=== PATIENT | male | born 1935 | race Caucasian/White ===

== ENCOUNTER 2017-05-20 13:58 | Emergency (ER) | payer OTHER ==
[~2017-05-20] VITALS: Ht 170.2 cm; Wt 75.0 kg
[~2017-05-20 13:58] MED LIST: ACET-1256 PO; ASPI-461 PO; CHOL1000 PO; CLOP1TAB15 PO; DIPH50TA10 PO; ERYOPO1 OPR; MAGN1TAB19 PO; MULT-618 PO; NITR0.4S UT; OMEG10007 PO; PANT1TAB3 PO; POLY99.02 OPB; PRED10TA PO; PSYL55.43 PO; [UNRECOGNIZED DRUG - CODE]
[2017-05-20 14:12] VITALS: TEMP 36.8; Ht 170.2 cm; Wt 75.0 kg
--- NOTE | 2017-05-20 14:38 | EMERGENCY ROOM VISIT NOTE ---
History Report prepared by Malindaibkathy: Aleida Aguilera Under the Supervision of: Dr. Hannah Russ D.O. First contact with patient: 14:19 Chief Complaint: SHORTNESS OF BREATH Stated Complaint: SOB,DIZZY History of Present Illness The patient is an 81 year old male who presents to the Emergency Room with complaints of persistent shortness of breath for the past few days. He states his shortness of breath is worsened by any exertion. This morning after clearing his throat, he states he had a near syncopal episode. He has a history of hypoglycemia so he ate breakfast and afterwards states his BSG was 98. He complains of tingling to the right side of his face intermittently for the past 1 month. He has experienced no headaches or vision changes. The patient states recently "I find myself holding my breath a lot" and he has to "think about breathing", which is unusual for him. He notes he has a known abdominal hernia but states his doctor has deferred from doing surgery immediately. The hernia usually bothers him the most in the mornings, and is relieved by manual reduction. He denies any recent chest pain, fevers, chills, or cold symptoms. He does have a dry cough, but states this is chronic for him. He denies any change in bowel movements or urinary habits. He admits to a history atherosclerosis and has [address] 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 A total of 10 systems reviewed and were otherwise negative. 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 (2) Dyslipidemia (3) Gastroesophageal reflux disease (4) History of adenomatous polyp of colon (5) History of malignant neoplasm of prostate (6) s/p hernia repair (7) s/p partial colectomy (8) s/p radical prostatectomy (9) Sleep apnea Family History Diabetes mellitus Hypertension Social History Smoking Status: Former Smoker Alcohol Use: occasionally Drug Use: none Marital Status: single Housing Status: lives with family Occupation Status: retired Current/Historical Medications Scheduled Acetaminophen (Tylenol), 500 MG PO DAILY Artificial Tear Solution (Artificial Tears), 1 DROPS OP QID Aspirin (Aspirin), 81 MG PO QPM Cholecalciferol (Vitamin D3), 2 TAB PO DAILY Clopidogrel (Plavix), 75 MG PO QAM Erythromycin (Erythromycin), 0.5 CM OPR QID Fish Oil ([place]-3), 1 CAP PO BID Magnesium Oxide (Mg Supplement (Magnesium Oxide), 1 TAB PO QAM Multiple Vitamins W/ Minerals (Centrum Silver Ultra Mens), 1 TAB PO QAM Pantoprazole (Protonix), 40 MG PO QAM Psyllium (Goodsense Natural Fiber), 1 DOSE PO UD Scheduled PRN Nitroglycerin (Nitrostat), 0.4 MG UT UD PRN for Chest Pain White Petrolatum-Mineral Oil (Tgt Lubricant Eye Nightti), for dry eye Allergies Coded Allergies: Atorvastatin (Verified Allergy, Intermediate, RASH, 05/20/17) PER CAT - PT HAS TOLERATED CRESTOR BEFORE Bacitracin (Verified Allergy, Intermediate, RASH, 05/20/17) Metoprolol (Verified Allergy, Unknown, Rash., 05/20/17) Rosuvastatin (Verified Allergy, Unknown, Rash., 05/20/17) Physical Exam Vital Signs Date Time Temp Pulse Resp B/P (MAP) Pulse Ox O2 Delivery O2 Flow Rate FiO2 05/20/17 21:21 89 18 173/90 96 05/20/17 19:45 79 23 157/84 98 Room Air 05/20/17 18:30 83 18 158/90 97 Room Air 05/20/17 16:57 89 20 97 Room Air 05/20/17 16:55 89 20 97 Room Air 05/20/17 16:28 77 05/20/17 14:51 83 18 173/91 97 Room Air 05/20/17 14:25 97 Room Air 05/20/17 14:12 36.8 92 20 178/102 95 Room Air Physical Exam GENERAL: alert, well appearing, well nourished, no distress, non-toxic EYE EXAM: normal conjunctiva, PERRL and EOM's grossly intact OROPHARYNX: no exudate, no erythema, lips, buccal mucosa, and tongue normal and mucous membranes are moist NECK: supple, no nuchal rigidity, no adenopathy, non-tender LUNGS: Clear to auscultation. Normal chest wall mechanics HEART: no murmurs, S1 normal and S2 normal ABDOMEN: abdomen soft, large right mid abdominal hernia, non-tender, easily reducible, abdomen is otherwise non-tender, normo-active bowel sounds, no rebound or guarding. BACK: Back is symmetrical on inspection and there is no deformity, no midline tenderness, no CVA tenderness. SKIN: no rashes and no bruising UPPER EXTREMITIES: upper extremities are grossly normal. LOWER EXTREMITIES: No pitting edema. NEURO EXAM: Normal sensorium, cranial nerves II-XII grossly intact, normal speech, no gross weakness of arms, no gross weakness of legs. Normal gait, nor facial droop. Medical Decision & Procedures ER Provider Diagnostic Interpretation: Radiology results have been interpreted by the radiologist and reviewed by me. CHEST ONE VIEW PORTABLE HISTORY: Short of breath. Dizziness. COMPARISON: Chest 04/27/2014. FINDINGS: No pleural effusions. No pneumothorax. Stable calcified granuloma within the left lower lobe. Increased markings at the left lung base. The heart is normal in size. No evidence for pulmonary edema. IMPRESSION: Increased markings at the left lung base which favors atelectasis. Otherwise, no acute process within the chest. Electronically signed by: Aaron Reis M.D. 05/20/2017 3:[address] OF THE HEAD WITHOUT CONTRAST CLINICAL HISTORY: Dizziness. Right facial tingling. COMPARISON STUDY: Head CT April 28, 2014. CT DOSE: 537.48 mGy.cm TECHNIQUE: Helical axial images of the head were obtained without IV contrast. Automated exposure control was utilized for the study. A dose lowering technique was utilized adhering to the principles of ALARA. FINDINGS: No acute intracranial hemorrhage, midline shift or mass effect is present. Ventricular system is stable. The basilar cisterns are patent. There are no extra-axial collections. White matter hypodensity suggests small vessel disease. There are no findings to suggest acute dural sinus thrombosis or acute territorial infarct. There are no significant calvarial abnormalities. Visualized portions of the sinuses and mastoid air cells are clear. IMPRESSION: No acute intracranial findings. Electronically signed by: Rafael Nixon M.D. 05/20/2017 3:10 PM CTA ANGIOGRAPHY OF THE HEAD CLINICAL HISTORY: Right facial tingling. COMPARISON STUDY: MRI the brain June 15, [address] performed earlier today. TECHNIQUE: Helical axial images of the head were obtained following uneventful intravenous administration of 116 cc of Optiray 320. A dose lowering technique was utilized adhering to the principles of ALARA. FINDINGS: The bilateral M1, M2, A1 and A2 segments are patent. There is no intracranial aneurysm. No abrupt vessel cut off is identified. There is no significant stenosis. There is mild atherosclerotic plaque within the bilateral cavernous carotids. The posterior circulation is intact. No acute intracranial hemorrhage, midline shift or mass effect is present. Ventricular system is unremarkable for age. Basilar cisterns are patent. There are no extra-axial collections. IMPRESSION: Unremarkable CTA of the intracranial circulation for age. Electronically signed by: Rafael Nixon M.D. 05/20/2017 8:[address] ANGIOGRAPHY OF THE NECK WITH CONTRAST CLINICAL HISTORY: Right facial tingling. COMPARISON STUDY: No previous studies for comparison. Technique: CT angiography of the carotid and vertebral arteries was obtained using Optiray 320 IV and 3D reconstruction on an independent workstation. NASCET criteria was utilized. A dose lowering technique was utilized adhering to the principles of ALARA. CT DOSE: 475.84 mGy.cm Findings: The bilateral common carotid, internal carotid and vertebral arteries are patent. There is no stenosis or dissection within these vessels. No cervical lymphadenopathy is present. No suspicious osseous lesions are noted. Epiglottis is normal. IMPRESSION: No abnormality in carotid and vertebral vessels on contrast enhanced CT angiogram. Electronically signed by: Rafael Nixon M.D. 05/20/2017 8:37 PM Laboratory Results 05/20/17 14:50 Red Blood Count 4.62, Mean Corpuscular Volume 89.4, Mean Corpuscular Hemoglobin 31.2, Mean Corpuscular Hemoglobin Concent 34.9, Mean Platelet Volume 9.5, Neutrophils (%) (Auto) 52.7, Lymphocytes (%) (Auto) 35.5, Monocytes (%) (Auto) 8.8, Eosinophils (%) (Auto) 2.5, Basophils (%) (Auto) 0.4, Neutrophils # (Auto) 3.81, Lymphocytes # (Auto) 2.57, Monocytes # (Auto) 0.64, Eosinophils # (Auto) 0.18, Basophils # (Auto) 0.03 05/20/17 14:50 Test 05/20/17 14:49 05/20/17 14:50 05/20/17 18:27 Influenza Type A Antigen Neg for Influ A (NEG) Influenza Type B Antigen Neg for Influ B (NEG) White Blood Count 7.24 K/uL (4.8-10.8) Red Blood Count 4.62 M/uL (4.7-6.1) Hemoglobin 14.4 g/dL (14.0-18.0) Hematocrit 41.3 % (42-52) Mean Corpuscular Volume 89.4 fL (80-100) Mean Corpuscular Hemoglobin 31.2 pg (25-34) Mean Corpuscular Hemoglobin Concent 34.9 g/dl (32-36) Platelet Count 211 K/uL (130-400) Mean Platelet Volume 9.5 fL (7.4-10.4) Neutrophils (%) (Auto) 52.7 % Lymphocytes (%) (Auto) 35.5 % Monocytes (%) (Auto) 8.8 % Eosinophils (%) (Auto) 2.5 % Basophils (%) (Auto) 0.4 % Neutrophils # (Auto) 3.81 K/uL (1.4-6.5) Lymphocytes # (Auto) 2.57 K/uL (1.2-3.4) Monocytes # (Auto) 0.64 K/uL (0.11-0.59) Eosinophils # (Auto) 0.18 K/uL (0-0.5) Basophils # (Auto) 0.03 K/uL (0-0.2) RDW Standard Deviation 42.1 fL (36.4-46.3) RDW Coefficient of Variation 13.0 % (11.5-14.5) Immature Granulocyte % (Auto) 0.1 % Immature Granulocyte # (Auto) 0.01 K/uL (0.00-0.02) Prothrombin Time 9.7 SECONDS (9.0-12.0) Prothromb Time International Ratio 0.9 (0.9-1.1) D-Dimer 420 ug/L FEU (0-500) Anion Gap 5.0 mmol/L (3-11) Est Creatinine Clear Calc Drug Dose 53.0 ml/min Estimated GFR () 78.2 Estimated GFR (Non- 67.5 BUN/Creatinine Ratio 12.4 (10-20) Calcium Level 8.6 mg/dl (8.5-10.1) Magnesium Level 2.3 mg/dl (1.8-2.4) Total Bilirubin 0.3 mg/dl (0.2-1) Aspartate Amino Transf (AST/SGOT) 21 U/L (15-37) Alanine Aminotransferase (ALT/SGPT) 26 U/L (12-78) Alkaline Phosphatase 82 U/L (45-117) Troponin I < 0.015 ng/ml (0-0.045) Pro-B-Type Natriuretic Peptide 167 pg/ml (0-1800) Total Protein 7.8 gm/dl (6.4-8.2) Albumin 3.5 gm/dl (3.4-5.0) Globulin 4.3 gm/dl (2.5-4.0) Albumin/Globulin Ratio 0.8 (0.9-2) Thyroid Stimulating Hormone (TSH) 1.240 uIu/ml (0.300-4.500) Bedside Glucose 100 mg/dl (70-99) Laboratory results per my review. Medications Administered Medications (Trade) Dose Ordered Sig/Tutu Route Start Time Stop Time Status Last Admin Dose Admin Albuterol (Ventolin Hfa Inhaler) 2 puffs NOW ONCE INH 05/20/17 21:00 05/20/17 21:01 DC 05/20/17 21:00 2 PUFFS ECG Per My Interpretation Indication: SOB/dyspnea Rate (beats per minute): 89 Rhythm: sinus rhythm Findings: no acute ischemic change, no ectopy, other (normal intervals) ED Course 142: The patient was evaluated in room B12. A complete history and physical exam was performed. 1628: I reevaluated the patient. He states he is still having tingling in his face. He denies any current dizziness or lightheadedness. He states he still feels like has to think about breathing. 2040: I reevaluated the patient. He states he still doesn't feel any better. 2100: Albuterol 2 puffs INH. 2114: I reevaluated the patient. I discussed his results and discharge instructions and he verbalized complete understanding and agreement. Medical Decision Prior records/ancillary studies reviewed. Triage Nursing notes reviewed. Additional history obtained from the family. The patient's history was concerning for respiratory difficulties. Differential diagnosis: Etiologies such as infections, reactive airway disease, pneumonia, pneumothorax , COPD, CHF, cardiac ischemia, pulmonary embolism, musculoskeletal, gastrointestinal, as well as others were entertained. Pt with multiple complaints here, most of which seem chronic. I do feel there is underlying component of anxiety given patient's age and the fact that he lives alone. Labs and imaging the patient performed here were reassuring. Patient did complain of intermittent symptoms, however had no apparent distress. Vital signs otherwise stable. Discussed with patient close follow- up with family doctor, symptoms to watch and return for, he verbalized understanding was agreeable with plan. Patient well-appearing at time of discharge, tolerating by mouth, and related with a steady gait and no apparent distress. I do not suspect occult infectious etiology, occult vascular etiology. Doubt cardiac etiology. Troponin negative after many weeks of symptoms. No evidence of congestive heart failure. Medication Reconcilliation Current Medication List: was personally reviewed by me Blood Pressure Screening Patient's blood pressure: Elevated blood pressure Blood pressure disposition: Referred to PCP Impression Primary Impression: Facial paresthesia Additional Impressions: Dyspnea Anxiety Scribe Attestation The scribe's documentation has been prepared under my direction and personally reviewed by me in its entirety. I confirm that the note above accurately reflects all work, treatment, procedures, and medical decision making performed by me. Departure Information Dispostion Home / Self-Care Referrals Meredith Flaherty M.D. (MEDICAL) (PCP) Patient Instructions My [facility] Additional Instructions Please follow up with your family doctor. Please discuss with them your recent symptoms and possible need for additional evaluation. Please continue regular medications as prescribed. If you develop any worsening trouble breathing, have an increased cough, noticed blood in your sputum, develop chest pain or pressure, dizziness or passing out, headaches, fevers, vomiting, or you've any other new concerns, please return the emergency room. You may use the inhaler up to every 4 hours as needed for shortness of breath. Problem Qualifiers Additional Impressions: Dyspnea Dyspnea type: unspecified Qualified Codes: R06.00 - Dyspnea, unspecified
[2017-05-20 14:59] LABS: BASO % 0.4 %; BASO ABS # 0.03 K/uL (0-0.2); EOS % 2.5 %; EOS ABS # 0.18 K/uL (0-0.5); HEMATOCRIT 41.3 % (42-52); HEMOGLOBIN 14.4 g/dL (14.0-18.0); IG# 0.01 K/uL (0.00-0.02); LYMPH % 35.5 %; LYMPH ABS # 2.57 K/uL (1.2-3.4); MEAN CELL VOLUME 89.4 fL (80-100); MEAN CORPUSCULAR HEMOGLOBIN 31.2 pg (25-34); MEAN CORPUSCULAR HGB CONC 34.9 g/dl (32-36); MEAN PLATELET VOLUME 9.5 fL (7.4-10.4); MONO % 8.8 %; MONO ABS # 0.64 K/uL (0.11-0.59); NEUT % 52.7 %; NEUT ABS # 3.81 K/uL (1.4-6.5); PLATELET COUNT 211 K/uL (130-400); RED CELL DISTRIBUTION WIDTH SD 42.1 fL (36.4-46.3); WHITE BLOOD COUNT 7.24 K/uL (4.8-10.8)
[2017-05-20 15:06] LABS: INR 0.9 (0.9-1.1)
--- NOTE | 2017-05-20 15:11 | DIAGNOSTIC IMAGING REPORT ---
CT OF THE HEAD WITHOUT CONTRAST CLINICAL HISTORY: Dizziness. Right facial tingling. COMPARISON STUDY: Head CT April 28, 2014. CT DOSE: 537.48 mGy.cm TECHNIQUE: Helical axial images of the head were obtained without IV contrast. Automated exposure control was utilized for the study. A dose lowering technique was utilized adhering to the principles of ALARA. FINDINGS: No acute intracranial hemorrhage, midline shift or mass effect is present. Ventricular system is stable. The basilar cisterns are patent. There are no extra-axial collections. White matter hypodensity suggests small vessel disease. There are no findings to suggest acute dural sinus thrombosis or acute territorial infarct. There are no significant calvarial abnormalities. Visualized portions of the sinuses and mastoid air cells are clear. IMPRESSION: No acute intracranial findings. Electronically signed by: Rafael Nixon M.D. 05/20/2017 3:10 PM Dictated Date/Time: 05/20/2017 3:08 PM
--- NOTE | 2017-05-20 15:13 | DIAGNOSTIC IMAGING REPORT ---
CHEST ONE VIEW PORTABLE HISTORY: Short of breath. Dizziness. COMPARISON: Chest 04/27/2014. FINDINGS: No pleural effusions. No pneumothorax. Stable calcified granuloma within the left lower lobe. Increased markings at the left lung base. The heart is normal in size. No evidence for pulmonary edema. IMPRESSION: Increased markings at the left lung base which favors atelectasis. Otherwise, no acute process within the chest. Electronically signed by: Aaron Reis M.D. 05/20/2017 3:11 PM Dictated Date/Time: 05/20/2017 3:10 PM
[2017-05-20 15:17] LABS: BLOOD UREA NITROGEN 13 mg/dl (7-18); CREATININE 1.04 mg/dl (0.60-1.40); GLUCOSE 90 mg/dl (70-99)
[2017-05-20 15:18] LABS: ALBUMIN 3.5 gm/dl (3.4-5.0); ALT/SGPT 26 U/L (12-78); AST/SGOT 21 U/L (15-37); CALCIUM 8.6 mg/dl (8.5-10.1); CARBON DIOXIDE 29 mmol/L (21-32); POTASSIUM 4.3 mmol/L (3.5-5.1); SODIUM 138 mmol/L (136-145)
[2017-05-20 15:28] LABS: ALKALINE PHOSPHATASE 82 U/L (45-117); TOTAL PROTEIN 7.8 gm/dl (6.4-8.2)
[2017-05-20 16:02] LABS: INFLUENZA B ANTIGEN Neg for Influ B (NEG)
[2017-05-20] MEDS ORDERED: ARTISOL12 OP (16:58)
[2017-05-20] MEDS ORDERED: PSYL1POW PO (16:58)
[2017-05-20] MEDS ORDERED: OPTIRAY 320 IV PRN (17:45)
--- NOTE | 2017-05-20 20:36 | DIAGNOSTIC IMAGING REPORT ---
CTA ANGIOGRAPHY OF THE HEAD CLINICAL HISTORY: Right facial tingling. COMPARISON STUDY: MRI the brain June 15, [address] performed earlier today. TECHNIQUE: Helical axial images of the head were obtained following uneventful intravenous administration of 116 cc of Optiray 320. A dose lowering technique was utilized adhering to the principles of ALARA. FINDINGS: The bilateral M1, M2, A1 and A2 segments are patent. There is no intracranial aneurysm. No abrupt vessel cut off is identified. There is no significant stenosis. There is mild atherosclerotic plaque within the bilateral cavernous carotids. The posterior circulation is intact. No acute intracranial hemorrhage, midline shift or mass effect is present. Ventricular system is unremarkable for age. Basilar cisterns are patent. There are no extra-axial collections. IMPRESSION: Unremarkable CTA of the intracranial circulation for age. Electronically signed by: Rafael Nixon M.D. 05/20/2017 8:35 PM Dictated Date/Time: 05/20/2017 8:32 PM
--- NOTE | 2017-05-20 20:38 | DIAGNOSTIC IMAGING REPORT ---
CT ANGIOGRAPHY OF THE NECK WITH CONTRAST CLINICAL HISTORY: Right facial tingling. COMPARISON STUDY: No previous studies for comparison. Technique: CT angiography of the carotid and vertebral arteries was obtained using QRuso 320 IV and 3D reconstruction on an independent workstation. NASCET criteria was utilized. A dose lowering technique was utilized adhering to the principles of ALARA. CT DOSE: 475.84 mGy.cm Findings: The bilateral common carotid, internal carotid and vertebral arteries are patent. There is no stenosis or dissection within these vessels. No cervical lymphadenopathy is present. No suspicious osseous lesions are noted. Epiglottis is normal. IMPRESSION: No abnormality in carotid and vertebral vessels on contrast enhanced CT angiogram. Electronically signed by: Rafael Nixon M.D. 05/20/2017 8:37 PM Dictated Date/Time: 05/20/2017 8:35 PM
[2017-05-20] MEDS ORDERED: ALBUTEROL HFA 8 GM INHALER INH ONE (21:00)
[2017-05-20 21:21] VITALS: BP 173/90; PULSE 89; O2SAT 96
== END 2017-05-20 21:23 | disposition home or self-care (01) ==
LOC: C.EDB 14:00
DX: R06.00 Dyspnea, unspecified (principal); R20.2 Paresthesia of skin; F41.9 Anxiety disorder, unspecified; E16.2 Hypoglycemia, unspecified; K46.9 Unspecified abdominal hernia without obstruction or gangrene; Z95.5 Presence of coronary angioplasty implant and graft; I25.10 Atherosclerotic heart disease of native coronary artery without angina pectoris; E78.5 Hyperlipidemia, unspecified; K21.9 Gastro-esophageal reflux disease without esophagitis; Z86.010 Personal history of colon polyps; Z85.46 Personal history of malignant neoplasm of prostate; G47.30 Sleep apnea, unspecified; Z90.79 Acquired absence of other genital organ(s); Z90.49 Acquired absence of other specified parts of digestive tract; Z87.01 Personal history of pneumonia (recurrent); Z83.3 Family history of diabetes mellitus; Z82.49 Family history of ischemic heart disease and other diseases of the circulatory system; Z79.82 Long term (current) use of aspirin; Z79.02 Long term (current) use of antithrombotics/antiplatelets; Z79.899 Other long term (current) drug therapy; Z88.8 Allergy status to other drugs, medicaments and biological substances

== ENCOUNTER 2017-06-11 12:33 | Inpatient (IN) | payer OTHER ==
[~2017-06-11] VITALS: Ht 171.4 cm; Wt 78.0 kg
[~2017-06-11 12:33] MED LIST changes: +ARTISOL12 OP; -DIPH50TA10 PO; -POLY99.02 OPB; -PRED10TA PO; +PSYL1POW PO; -PSYL55.43 PO
--- NOTE | 2017-06-11 13:00 | EMERGENCY ROOM VISIT NOTE ---
History First contact with patient: 12:41 Chief Complaint: STROKE SYMPTOMS Stated Complaint: TINGLING ON SIDE OF FACE AND CHIN, SOB Nursing Triage Summary: pt reports intermittent shortness of breath x "a couple weeks." pt also reports right sided facial tingling "for a couple weeks also." pt reports symptoms have gotten worse this am and "they get worse when i move around a lot." pt reports his bsg's have been "in the 70's lately." dr spencer in room with pt at this time. History of Present Illness The patient is a 81 year old male who presents to the Emergency Room with complaints of right sided facial tingling and some shortness of breath. This has been occurring for months but is worsening. The patient was here about a month ago, mid May, and had a workup for the numbness. He had laboratory testing and brain imaging including CT angiography of the brain. No concerning findings by workup. He was given an albuterol inhaler which he has tried, this has not helped. The patient denies cough, cold or congestion. No fever or chills. No extremity weakness. The patient states that he felt similar years ago before he had 2 cardiac stents placed. He is concerned this could be his heart again. He states that when he walks distances or does the stairs, he feels short of breath and the facial numbness starts. It takes about 10 minutes of rest and then he feels better. Source of History: patient Onset: months ago Position: head (right side of face ) Quality: other (tingling) Timing: worsening Associated Symptoms: + SOB, No fevers, No chills, No cough, No weakness Review of Systems ROS: Please see HPI. At least 10 systems in total were reviewed and otherwise negative. Past Medical/Surgical History Medical Problems: (1) Coronary Atherosclerosis Of [place] Coronary Vessel (2) Dyslipidemia (3) Gastroesophageal reflux disease (4) History of adenomatous polyp of colon (5) History of malignant neoplasm of prostate (6) s/p hernia repair (7) s/p partial colectomy (8) s/p radical prostatectomy (9) Sleep apnea Family History Diabetes mellitus Hypertension Social History Smoking Status: Former Smoker Alcohol Use: occasionally Drug Use: none Marital Status: single Housing Status: lives with family Occupation Status: retired Current/Historical Medications Scheduled Acetaminophen (Tylenol), 500 MG PO DAILY Artificial Tear Solution (Artificial Tears), 1 DROPS OP QID Aspirin (Aspirin), 81 MG PO QPM Cholecalciferol (Vitamin D3), 1,000 UNITS PO BID Clopidogrel (Plavix), 75 MG PO QAM Fish Oil ([place]-3), 1 CAP PO BID Magnesium Oxide (Mg Supplement (Magnesium Oxide), 1 TAB PO QAM Multiple Vitamins W/ Minerals (Centrum Silver Ultra Mens), 1 TAB PO QAM Pantoprazole (Protonix), 40 MG PO QAM Psyllium (Goodsense Natural Fiber), 1 DOSE PO UD Scheduled PRN Nitroglycerin (Nitrostat), 0.4 MG UT UD PRN for Chest Pain White Petrolatum-Mineral Oil (Tgt Lubricant Eye Nightti), for dry eye Time Last Known Well 3 months ago Stroke t-PA Criteria Reviewed Does NOT meet criteria for t-PA Reason t-PA Not Given Treatment not indicated Physical Exam Vital Signs Date Time Temp Pulse Resp B/P (MAP) Pulse Ox O2 Delivery O2 Flow Rate FiO2 06/11/17 13:36 80 18 161/75 96 Room Air 06/11/17 13:03 93 20 155/67 98 Room Air 06/11/17 12:48 87 06/11/17 12:46 97 Room Air 06/11/17 12:36 36.8 84 20 191/100 98 Room Air Physical Exam GENERAL: Patient is in no acute distress. HEENT: No acute trauma, normocephalic atraumatic, mucous membranes moist, no nasal congestion, no scleral icterus. NECK: No stridor, no adenopathy, no meningismus, trachea is midline. LUNGS: Occasional crackles bilaterally, no wheezing, breath sounds equal, no respiratory distress. HEART: Without murmurs gallops or rubs, regular rate and rhythm. ABDOMEN: Soft, nontender, bowel sounds positive, no hernias, no peritonitis. EXTREMITIES: No cyanosis or edema, full range of motion of all the joints without pain or difficulty, no signs for acute trauma. NEUROLOGIC: Oriented x 3, no acute motor or sensory deficits, no focal weakness. No cerebellar deficits or pronator drift. No speech slur or facial droop. SKIN: No rash, no jaundice, no diaphoresis. Medical Decision & Procedures ER Provider Diagnostic Interpretation: Radiology results as stated below per my review and radiologist interpretation: CHEST ONE VIEW PORTABLE CLINICAL HISTORY: Atypical chest pain, shortness of breath. Dizziness. COMPARISON STUDY: 05/20/2017 FINDINGS: The heart is normal in size. There is no failure. There is no lobar consolidation. There is blunting of the left lateral costophrenic angle consistent with a small pleural effusion. Minimal increased markings within the left midlung zone peripherally remain stable, and unchanged from August 2013.[ There is a stable left lower lobe calcified granuloma. IMPRESSION: 1. Small left pleural effusion 2. No evidence of failure 3. No acute parenchymal consolidation Electronically signed by: Elijah Mccauley M.D. 06/11/2017 1:28 PM Dictated Date/Time: 06/11/2017 1:26 PM Laboratory Results 06/11/17 12:50 06/11/17 12:50 Test 06/11/17 12:50 Red Blood Count 4.52 M/uL (4.7-6.1) Mean Corpuscular Volume 88.1 fL (80-100) Mean Corpuscular Hemoglobin 30.3 pg (25-34) Mean Corpuscular Hemoglobin Concent 34.4 g/dl (32-36) RDW Standard Deviation 42.2 fL (36.4-46.3) RDW Coefficient of Variation 13.1 % (11.5-14.5) Mean Platelet Volume 9.4 fL (7.4-10.4) Prothrombin Time 9.9 SECONDS (9.0-12.0) Prothromb Time International Ratio 0.9 (0.9-1.1) Activated Partial Thromboplast Time 26.1 SECONDS (21.0-31.0) Partial Thromboplastin Ratio 1.0 Anion Gap 7.0 mmol/L (3-11) Est Creatinine Clear Calc Drug Dose 69.4 ml/min Estimated GFR () 86.2 Estimated GFR (Non- 74.4 BUN/Creatinine Ratio 18.0 (10-20) Calcium Level 8.5 mg/dl (8.5-10.1) Magnesium Level 2.4 mg/dl (1.8-2.4) Total Bilirubin 0.2 mg/dl (0.2-1) Aspartate Amino Transf (AST/SGOT) 24 U/L (15-37) Alanine Aminotransferase (ALT/SGPT) 30 U/L (12-78) Alkaline Phosphatase 80 U/L (45-117) Total Protein 7.7 gm/dl (6.4-8.2) Albumin 3.7 gm/dl (3.4-5.0) Globulin 4.0 gm/dl (2.5-4.0) Albumin/Globulin Ratio 0.9 (0.9-2) Thyroid Stimulating Hormone (TSH) 1.190 uIu/ml (0.300-4.500) Laboratory results reviewed by me. ECG Per My Interpretation Indication: SOB/dyspnea Rate (beats per minute): 83 Rhythm: sinus rhythm, other (PACs present. No ST elevation, no PVCs, LVH is noted) ED Course 1400: Discussed the patient's case with Dr. Matson. The patient will be evaluated for further management. 1422: Upon reexamination the patient is resting. I discussed results and treatment plan with the patient. He verbalizes agreement and understanding. Medical Decision Differential diagnosis includes cardiac ischemia, angina, stroke, TIA, electrolyte imbalance, anemia, CHF or cardiomegaly. There is no leukocytosis or worrisome anemia. No significant electrolyte abnormality, kidney failure or hepatitis. The patient appears to be in a euthyroid state. There is no coagulopathy. EKG shows a sinus rhythm with PACs and LVH, no acute ischemia. Cardiac enzyme testing 1 is not consistent with acute cardiac injury. Chest x-ray does not show mediastinal widening, pneumonia or CHF. On my exam, there were no focal neurologic deficits. The patient had a workup for stroke last month. He had no findings on workup. His symptoms have been persistent now for months and seem to be present with exertion. The symptoms resolve with rest. He had similar issues in the past that led to cardiac stenting. I do think further cardiac workup is warranted. I did speak with the patient and case management. The on-call hospitalist was consulted. Medication Reconcilliation Current Medication List: was personally reviewed by me Blood Pressure Screening Patient's blood pressure: Elevated blood pressure will be monitored by hospitalist Consults Time Called: 1330 Consulting Physician: Dr. Matson Returned Call: 1400 Discussed the patient's case. The patient will be evaluated for further management. Additional Consults: Additional Comments: Impression Primary Impression: Dyspnea on exertion Additional Impression: Right facial numbness Departure Information Dispostion Being Evaluated By Hospitalist Referrals Meredith Flaherty M.D. (MEDICAL) (PCP) Patient Instructions My [facility] Problem Qualifiers
[2017-06-11 13:04] LABS: HEMATOCRIT 39.8 % (42-52); HEMOGLOBIN 13.7 g/dL (14.0-18.0); MEAN CELL VOLUME 88.1 fL (80-100); MEAN CORPUSCULAR HEMOGLOBIN 30.3 pg (25-34); MEAN CORPUSCULAR HGB CONC 34.4 g/dl (32-36); MEAN PLATELET VOLUME 9.4 fL (7.4-10.4); PLATELET COUNT 220 K/uL (130-400); RED CELL DISTRIBUTION WIDTH CV 13.1 % (11.5-14.5); RED CELL DISTRIBUTION WIDTH SD 42.2 fL (36.4-46.3); WHITE BLOOD COUNT 7.49 K/uL (4.8-10.8)
[2017-06-11 13:16] LABS: INR 0.9 (0.9-1.1); PTT PATIENT 26.1 SECONDS (21.0-31.0)
--- NOTE | 2017-06-11 13:29 | DIAGNOSTIC IMAGING REPORT ---
CHEST ONE VIEW PORTABLE CLINICAL HISTORY: Atypical chest pain, shortness of breath. Dizziness. COMPARISON STUDY: 05/20/2017 FINDINGS: The heart is normal in size. There is no failure. There is no lobar consolidation. There is blunting of the left lateral costophrenic angle consistent with a small pleural effusion. Minimal increased markings within the left midlung zone peripherally remain stable, and unchanged from August 2013.[ There is a stable left lower lobe calcified granuloma. IMPRESSION: 1. Small left pleural effusion 2. No evidence of failure 3. No acute parenchymal consolidation Electronically signed by: Elijah Mccauley M.D. 06/11/2017 1:28 PM Dictated Date/Time: 06/11/2017 1:26 PM
[2017-06-11 13:43] LABS: ALBUMIN 3.7 gm/dl (3.4-5.0); ALT/SGPT 30 U/L (12-78); AST/SGOT 24 U/L (15-37); BLOOD UREA NITROGEN 17 mg/dl (7-18); CALCIUM 8.5 mg/dl (8.5-10.1); CARBON DIOXIDE 26 mmol/L (21-32); CREATININE 0.96 mg/dl (0.60-1.40); GLUCOSE 97 mg/dl (70-99); POTASSIUM 4.3 mmol/L (3.5-5.1); SODIUM 138 mmol/L (136-145)
[2017-06-11 13:54] LABS: ALKALINE PHOSPHATASE 80 U/L (45-117); TOTAL PROTEIN 7.7 gm/dl (6.4-8.2)
--- NOTE | 2017-06-11 14:23 | History and Physical ---
History & Physical Date & Time of Service: Jun 11, 2017 at 14:23 . Chief Complaint: dyspnea on exertion . Primary Care Physician: Meredith Flaherty M.D. (MEDICAL) . History of Present Illness Source: patient, clinic records, hospital records 81-year-old male followed by Dr. Flaherty for Family Medicine and Dr. Coyne for Cardiology. History of ischemic heart disease and other problems noted below. Cardiac catheterization performed on 03/05/12 demonstrated a severe mid left circumflex lesion. PCI with drug-eluting stent was successfully performed. Recurrent chest pain in February 2013. Repeat cardiac catheterization demonstrated severe proximal LAD lesion and a drug-eluting stent was placed. The previously placed left circumflex stent was patent. Patient was seen in the ED on 05/20/17 with right facial paresthesiae. No other focal neurologic symptoms. CT of head showed small vessel ischemic changes. CTA of cervical and intracranial vessels did not show any significant stenoses. Over the past week, patient has noted increasing dyspnea on exertion. Feels short of breath walking from room to room in his home or after climbing a flight of stairs. No associated chest pain or chest pressure. Intermittent palpitations, not necessarily associated with activity. No dependent edema. No fever. Minimal nonproductive cough. . Past Medical/Surgical History Chronic and Resolved Medical Problems: (1) Coronary Atherosclerosis Of [place] Coronary Vessel Status: Chronic (2) Dyslipidemia Status: Chronic (3) Gastroesophageal reflux disease Status: Chronic (4) History of adenomatous polyp of colon Status: Chronic (5) History of malignant neoplasm of prostate Status: Chronic (6) Sleep apnea Permanent Comment: intolerant of CPAP Status: Chronic (7) Statin allergy/intolerance Status: Chronic (8) Tinnitus Status: Chronic Surgical Problems: (1) History of radical prostatectomy Status: Chronic (2) S/P inguinal hernia repair Status: Chronic (3) Status post partial colectomy Permanent Comment: large polyp Status: Chronic . Family History Diabetes mellitus MOTHER BROTHER Hypertension BROTHER Lymphoma BROTHER Multiple myeloma SISTER Stroke FATHER BROTHER Social History Smoking Status: Never Smoker Alcohol Use: none Drug Use: none Marital Status: single Occupational Status: retired Immunizations History of Influenza Vaccine: Yes History of Tetanus Vaccine?: Yes Tetanus Immunization Date: Jul 28, 2012 History of Pneumococcal: Yes Pneumococcal Date: Jan 27, 2013 History of Hepatitis B Vaccine: No Allergies Coded Allergies: Atorvastatin (Verified Allergy, Intermediate, RASH, 06/11/17) PER CAT - PT HAS TOLERATED CRESTOR BEFORE Bacitracin (Verified Allergy, Intermediate, RASH, 06/11/17) Metoprolol (Verified Allergy, Unknown, Rash., 06/11/17) Rosuvastatin (Verified Allergy, Unknown, Rash., 06/11/17) Home Medications Scheduled Acetaminophen (Tylenol), 500 MG PO DAILY Artificial Tear Solution (Artificial Tears), 1 DROPS OP QID Aspirin (Aspirin), 81 MG PO QPM Cholecalciferol (Vitamin D3), 1,000 UNITS PO BID Clopidogrel (Plavix), 75 MG PO QAM Fish Oil ([place]-3), 1 CAP PO BID Magnesium Oxide (Mg Supplement (Magnesium Oxide), 1 TAB PO QAM Multiple Vitamins W/ Minerals (Centrum Silver Ultra Mens), 1 TAB PO QAM Pantoprazole (Protonix), 40 MG PO QAM Psyllium (Goodsense Natural Fiber), 1 DOSE PO UD Scheduled PRN Nitroglycerin (Nitrostat), 0.4 MG UT UD PRN for Chest Pain White Petrolatum-Mineral Oil (Tgt Lubricant Eye Nightti), for dry eye Review of Systems CONSTITUTIONAL no fever no weight loss EYES + dry eyes no acute visual changes EARS, NOSE, MOUTH, AND THROAT + tinnitus (chronic) no hearing loss no sinus symptoms no pharyngitis CARDIOVASCULAR as noted above in HPI RESPIRATORY as noted above in HPI GASTROINTESTINAL + incisional hernia no nausea or vomiting no diarrhea no constipation no melena or hematochezia GENITOURINARY + nocturia once a night no dysuria no hematuria MUSCULOSKELETAL + neck pain no myalgias INTEGUMENTARY + rash on right thigh, resolving no new / changing lesions NEUROLOGIC as noted above in HPI PSYCHIATRIC + anxiety + depression, cries easily ENDOCRINE + hypoglycemia no polyuria or polydipsia HEMATOLOGIC / LYMPHATIC no unusual bruising or bleeding no adenopathy . Physical Exam Vital Signs Date Time Temp Pulse Resp B/P (MAP) Pulse Ox O2 Delivery O2 Flow Rate FiO2 06/11/17 13:36 80 18 161/75 96 Room Air 06/11/17 13:03 93 20 155/67 98 Room Air 06/11/17 12:48 87 06/11/17 12:46 97 Room Air 06/11/17 12:36 36.8 84 20 191/100 98 Room Air CONSTITUTIONAL vital signs as noted above adult male, well-developed, well-nourished, no acute distress EYES conjunctivae clear; lids normal pupils equal and reactive to light EARS, NOSE, MOUTH AND THROAT external inspection of ears and nose unremarkable hearing grossly intact to spoken voice oropharynx clear NECK no masses; trachea midline thyroid normal RESPIRATORY normal respiratory effort; no respiratory distress clear to percussion bibasilar fine rales, R > L CARDIOVASCULAR regular rate and rhythm no murmur, gallop, rub appreciated carotid arteries 2/2 abdominal aorta not palpable DP pulses diminished; PT pulses intact capillary refill toes < 2 seconds no pretibial edema GASTROINTESTINAL normal bowel sounds, soft, nontender; no palpable masses no hepatomegaly; no splenomegaly large incisional hernia, easily reduced LYMPHATIC no cervical adenopathy MUSCULOSKELETAL no cyanosis; no digital clubbing no calf tenderness motor strength extremities grossly intact SKIN resolving rash right medial thigh warm and dry NEUROLOGIC PERRL, EOMI, no facial palsy, no dysarthria, tongue midline patellar DTR's 1/2 PSYCHIATRIC oriented to person, place, time mood and affect appropriate . Diagnostics Laboratory Results Results Past 24 Hours Test 06/11/17 12:50 Range/Units White Blood Count 7.49 4.8-10.8 K/uL Red Blood Count 4.52 4.7-6.1 M/uL Hemoglobin 13.7 14.0-18.0 g/dL Hematocrit 39.8 42-52 % Mean Corpuscular Volume 88.1 80-100 fL Mean Corpuscular Hemoglobin 30.3 25-34 pg Mean Corpuscular Hemoglobin Concent 34.4 32-36 g/dl RDW Standard Deviation 42.2 36.4-46.3 fL RDW Coefficient of Variation 13.1 11.5-14.5 % Platelet Count 220 130-400 K/uL Mean Platelet Volume 9.4 7.4-10.4 fL Prothrombin Time 9.9 9.0-12.0 SECONDS Prothromb Time International Ratio 0.9 0.9-1.1 Activated Partial Thromboplast Time 26.1 21.0-31.0 SECONDS Partial Thromboplastin Ratio 1.0 Sodium Level 138 136-145 mmol/L Potassium Level 4.3 3.5-5.1 mmol/L Chloride Level 105 98-107 mmol/L Carbon Dioxide Level 26 21-32 mmol/L Anion Gap 7.0 3-11 mmol/L Blood Urea Nitrogen 17 7-18 mg/dl Creatinine 0.96 0.60-1.40 mg/dl Est Creatinine Clear Calc Drug Dose 69.4 ml/min Estimated GFR () 86.2 Estimated GFR (Non- 74.4 BUN/Creatinine Ratio 18.0 10-20 Random Glucose 97 70-99 mg/dl Calcium Level 8.5 8.5-10.1 mg/dl Magnesium Level 2.4 1.8-2.4 mg/dl Total Bilirubin 0.2 0.2-1 mg/dl Aspartate Amino Transf (AST/SGOT) 24 15-37 U/L Alanine Aminotransferase (ALT/SGPT) 30 12-78 U/L Alkaline Phosphatase 80 45-117 U/L Troponin I < 0.015 0-0.045 ng/ml Total Protein 7.7 6.4-8.2 gm/dl Albumin 3.7 3.4-5.0 gm/dl Globulin 4.0 2.5-4.0 gm/dl Albumin/Globulin Ratio 0.9 0.9-2 Thyroid Stimulating Hormone (TSH) 1.190 0.300-4.500 uIu/ml Diagnostic Radiology CHEST ONE VIEW PORTABLE The heart is normal in size. There is no failure. There is no lobar consolidation. There is blunting of the left lateral costophrenic angle consistent with a small pleural effusion. Minimal increased markings within the left midlung zone peripherally remain stable, and unchanged from August 2013.[ There is a stable left lower lobe calcified granuloma. IMPRESSION: 1. Small left pleural effusion 2. No evidence of failure 3. No acute parenchymal consolidation Electronically signed by: Elijah Mccauley M.D. 06/11/2017 1:28 PM Dictated Date/Time: 06/11/2017 1:26 PM . EKG EKG performed at 1253 reviewed and demonstrated normal sinus rhythm/minute, inverted T waves aVL, J-point elevation V2, no significant change compared to previous tracing on 05/20/17. . Impression Assessment and Plan DYSPNEA ON EXERTION / CAD Known ischemic heart disease. Worsening dyspnea on exertion over past week. No associated chest pain or chest pressure. Had similar symptoms in the past when he presented with acute coronary syndrome. Troponin in ED normal. No acute changes on EKG. Check serial troponins. Continue aspirin and clopidogrel. Patient is intolerant to beta blockers and statins. Consult Cardiology. Consider pulmonary evaluation if ongoing symptoms after cardiac assessment. Check 2 step pulse oximetry prior to discharge. PLEURAL EFFUSION Chest x-ray shows small left pleural effusion. Patient has history of prostate cancer as well as colonic polyps. Suggest follow-up chest x-ray in clinic in 4-6 weeks to make certain that the effusion does not worsen. RIGHT FACIAL PARESTHESIAE Seen in the ED about 2 weeks ago with paresthesiae right face. No acute findings on CT of brain. CTA of cervical and intracranial vessels unremarkable. Patient has persistent paresthesiae, no other neurologic symptoms. Consider mononeuropathy. TSH normal. Check Lyme screen with next labs. DEPRESSION Patient notes that he cries easily and is concerned that he is depressed. Further discussion with PCP recommended. VTE PROPHYLAXIS Moderate risk for VTE. SQ enoxaparin. Ambulate. RESUSCITATION STATUS Discussed with patient. He has a living will. He would like resuscitation attempted in the event of a cardiopulmonary arrest if there is a reasonable chance of a meaningful recovery, but does not want prolonged extraordinary measures if prognosis is poor. Therefore, code status = "Level 1" (full resuscitation). DISPOSITION Observation status on Telemetry Unit. Expected discharge to home. Family Medicine follow-up with Dr. Flaherty. . Resuscitation Status VTE Prophylaxis Will order VTE Prophylaxis: Yes
[2017-06-11] MEDS ORDERED: ACETAMINOPHEN 325 MG TAB PO PRN (14:30)
[2017-06-11] MEDS ORDERED: IV FLUIDS COMPLETED PRN (15:00)
[2017-06-11 16:54] VITALS: BP 167/76; PULSE 77; TEMP 36.8; O2SAT 98; Ht 171.4 cm; Wt 78.0 kg
[2017-06-11] MEDS: ARTIFICIAL TEARS OP SOLN OP SCH ×2 (17:00→21:09)
[2017-06-11 20:07] VITALS: BP 131/77; PULSE 75; TEMP 36.9; O2SAT 96
[2017-06-11] MEDS: ARTIFICIAL TEARS OP OINT 3.5 GM TUBE OP SCH (20:50)
[2017-06-11] MEDS: ASPIRIN 81 MG ECTAB PO SCH (20:50)
[2017-06-11] MEDS: ENOXAPARIN 40 MG/0.4 ML SYR SC SCH (20:50)
[2017-06-11 23:49] VITALS: BP 154/71; PULSE 87; TEMP 36.5; O2SAT 96
[2017-06-12 04:13] VITALS: BP 153/77; PULSE 68; TEMP 36.5; O2SAT 97
[2017-06-12 07:15] VITALS: BP 145/74; PULSE 70; TEMP 36.6; O2SAT 97
[2017-06-12] MEDS: MAGNESIUM OXIDE 400 MG TAB PO SCH (07:35)
[2017-06-12] MEDS: PSYLLIUM 58.6% PWD PACK S\\F PO SCH (07:35)
[2017-06-12] MEDS: PANTOprazole SOD 40 MG TAB PO SCH (07:35)
[2017-06-12] MEDS: CLOPIDOGREL BISULFATE 75 MG TAB PO SCH (07:35)
[2017-06-12] MEDS: ARTIFICIAL TEARS OP SOLN OP SCH ×4 (07:39→21:12)
--- NOTE | 2017-06-12 09:35 | CARDIOLOGY CONSULTATION ---
DATE OF CONSULTATION: 06/12/2017 REFERRING PHYSICIAN: Juan Carlos Matson MD. REASON FOR CONSULTATION: Dyspnea, coronary artery disease. CHIEF COMPLAINT ON ADMISSION: Dyspnea on exertion, fatigue. HISTORY OF PRESENT ILLNESS: Mr. Jones is an 81-year-old male followed by Dr. Coyne of our practice. He carries a history of coronary artery disease with prior drug-eluting stent implantation to left circumflex in 2011 as well as drug-eluting stent implantation to the LAD in 2012. The patient presented to the Emergency Department approximately 1 week ago with right-sided facial paresthesias. Initial neurologic workup was unremarkable. He was discharged to home. Reports dyspnea on exertion over the past 2-3 months. Notes dyspnea with walking on level ground. At times he notes right-sided facial paresthesias, which are not associated with exertion. He voices concern regarding his underlying coronary disease. Denies any chest heaviness, tightness, pressure, or pain. Note intermittent palpitations consistent with history of premature ventricular complexes. Denies orthopnea, PND, or lower extremity edema. Chest x-ray performed on admission demonstrates small left-sided pleural effusion without evidence of congestive heart failure. Currently, patient resting comfortably. Voices concerned symptoms may be related to underlying coronary disease or hypoglycemia which is a reported chronic issue. A.m. glucose within normal limits. Offers no other complaints at this time. REVIEW OF SYSTEMS: The pertinent positives are noted above, a comprehensive 10-system review is otherwise negative. PAST MEDICAL HISTORY: 1. Coronary artery disease with prior drug-eluting stent implantation, left circumflex and left anterior descending artery. 2. Dyslipidemia. 3. GERD. 4. Colon polyps. 5. Prostate cancer. 6. Obstructive sleep apnea with intolerance to CPAP. 7. Statin intolerance. 8. Tinnitus. PAST SURGICAL HISTORY: 1. Cardiac catheterization x3. 2. Radical prostatectomy. 3. Inguinal hernia repair. 4. Partial colectomy secondary to large polyp. FAMILY HISTORY: Positive for diabetes, lymphoma, multiple myeloma, and cerebral vascular accident. There is no family history of premature coronary artery disease or sudden cardiac . SOCIAL HISTORY: He is a lifelong nonsmoker. He is retired and single. ALLERGIES: ATORVASTATIN, BACITRACIN, METOPROLOL, ROSUVASTATIN. HOME MEDICATIONS: 1. Tylenol 500 mg daily. 2. Aspirin 81 mg daily. 3. Plavix 75 mg daily. 4. Fish oil twice daily. 5. Magnesium oxide daily. 6. Multivitamin daily. 7. Protonix 40 mg daily. 8. Nitroglycerin as needed. 9. Mineral oil for dry eyes. ECHOCARDIOGRAM ON ADMISSION: Normal sinus rhythm, premature supraventricular complexes. TELEMETRY: Sinus rhythm, occasional premature supraventricular complexes, rare premature ventricular complexes. LABORATORY DATA: LDL is 124, HDL is 38. White blood cell count 7.49, hemoglobin 13.7, platelet count is 220. INR is 0.9. Lyme's titer is negative. PHYSICAL EXAMINATION: VITAL SIGNS: Temperature is 36.6 degrees, pulse 70 beats per minute and regular, respiratory rate 20 breaths per minute, blood pressure 145/74 SaO2 is 97% on room air. GENERAL: NAD, awake, alert and oriented x3. HEENT: Mucous membranes are moist. There is no scleral icterus. The conjunctivae are pink. NECK: Supple without JVD or HJR. There is no carotid bruit. HEART: Regular with a normal S1 and S2. There is no murmur, rub or gallop. LUNGS: Clear with diminished breath sounds at the left base. No rales, rhonchi or wheeze. ABDOMEN: Soft, nontender. No rebound or guarding. Normal bowel sounds. EXTREMITIES: Warm and dry without clubbing, cyanosis or edema. NEUROLOGIC: Demonstrates no focal motor deficit. FINAL IMPRESSION: 1. An 81-year-old male presents with dyspnea on exertion as well as recurrent right-sided facial paresthesias. Symptoms somewhat atypical for angina; however, the patient has had evidence of underlying obstructive coronary artery disease with atypical symptoms in the past. Most recently nuclear stress testing and dobutamine stress echocardiography negative for inducible ischemia with negative cardiac catheterization in 2013. At that time, testing was performed for similar symptoms. 2. Small left-sided pleural effusion without evidence of congestive heart failure -- concerns regarding history of prostate cancer in the past. 3. Hypertension. 4. Dyslipidemia, statin intolerance. 5. Obstructive sleep apnea with CPAP intolerance. PLAN AND RECOMMENDATIONS: I had a long discussion with the patient regarding his recurrent symptoms. He has consumed a full meal this a.m. We discussed further ischemic evaluation with pharmacologic stress testing versus direct invasive testing with cardiac catheterization. We will proceed with dobutamine stress echocardiography this afternoon with plans for cardiac catheterization if stress testing is abnormal. In regard to his left-sided pleural effusion, recommend the chest ultrasound for quantitation. Consider pulmonary evaluation. We will continue to monitor blood pressure closely. Other cardiovascular medications will be continued as listed above. Further recommendations pending review of testing. Thank you for allowing me to participate in the care of your patient.
--- NOTE | 2017-06-12 11:41 | DIAGNOSTIC IMAGING REPORT ---
ULTRASOUND OF THE PLEURAL SPACES CLINICAL HISTORY: Pleural effusion. COMPARISON STUDY: Chest x-ray dated 06/11/2017. Chest CT dated 08/04/2013. FINDINGS: Real-time grayscale sonography of the pleural spaces is performed. No right-sided pleural effusion is identified. There is a trace left pleural effusion with an estimated volume of 12 cc. IMPRESSION: Trace left pleural effusion. Electronically signed by: Jonnie Cohn M.D. 06/12/2017 11:40 AM Dictated Date/Time: 06/12/2017 11:39 AM
[2017-06-12] MEDS ORDERED: DOBUTamine HCL 12.5 MG/ML 20 ML VIAL ONE (11:48)
[2017-06-12] MEDS ORDERED: METOPROLOL TARTRATE 1 MG/ML VIAL ONE (11:48)
[2017-06-12] MEDS ORDERED: ATROPINE SULFATE 0.1 MG/ML 5ML SYR ONE (11:50)
[2017-06-12] MEDS: NITROGLYCERIN 0.4 MG SL PER TAB CHARGE SL PRN ×3 (12:20→12:36)
--- NOTE | 2017-06-12 12:37 | Cardiology Progress Note ---
Cardiology Progress Note Date of Service Jun 12, 2017. Cardiology Progress Note Patient reassessed prior to, during, and post dobutamine stress echocardiogram. Resting echocardiogram revealed normal resting left ventricular wall motion. EKG response to pharmacologic stress was normal with the patient having achieved target heart rate. At peak target heart rate, and early in the post pharmacologic stress recovery interval, the patient complained of shortness of breath that was more intense than the exertional shortness of breath that he has been experiencing as an outpatient. There were no associated EKG abnormalities, and the left ventricular wall motion was noted to be normal at that time, however further echocardiographic imaging revealed a focal wall motion abnormality limited to the right ventricular apex and the mid level of the right ventricle. The dobutamine infusion was discontinued, the patient received 5 mg of IV metoprolol, and just of sublingual nitroglycerin 0.4 mg, with resolution of his shortness of breath, and noted resolution of the right ventricular wall motion abnormality on further echocardiographic imaging. The patient had undergone chest ultrasound, with findings of a trace left pleural effusion with estimated volume of 12 mL. At this time, it appears that the pleural effusion is small and not amenable to diagnostic thoracentesis, and therefore continued observation is recommended. The patient does not appear to be decompensated from a volume standpoint. Plan for the patient to remain in the hospital. I am going to advance his diet and make him n.p.o. after midnight for planned invasive coronary angiography on 06/13/17.
[2017-06-12] MEDS ORDERED: PERFLUTREN LIPID MICROSPHERE (DEFINITY) IV ONE (12:56)
[2017-06-12 15:32] VITALS: BP 143/80; PULSE 61; TEMP 36.2; O2SAT 97
[2017-06-12 16:02] VITALS: O2SAT 97
--- NOTE | 2017-06-12 19:00 | Progress Note ---
Medicine Progress Note Date & Time of Visit: Jun 12, 2017 at 18:54. Subjective patient seen resting in bedside chair in good spirits states he feels fine overall no active chest pain, dyspnea s/p stress test this morning: negative no other symptoms Objective Last 8 Hrs Date Time Temp Pulse Resp B/P (MAP) Pulse Ox O2 Delivery O2 Flow Rate FiO2 06/12/17 16:02 97 Room Air 06/12/17 15:32 36.2 61 16 143/80 (101) 97 Room Air 06/12/17 13:00 Room Air Physical Exam: General- oriented x 3, not in distress, speaks in sentences with no effort Head- atraumatic Eyes- PERRL, EOMI, anicteric ENT- oropharynx clear Neck- supple, no JVD, no adenopathy, no thyromegaly; carotids +2/2 Lungs- clear breath sounds bilaterally, no rales/wheezes Heart- regular rhythm; no murmur, normal rate Abdomen- normal bowel sounds, soft, nontender Extremities- no pretibial edema, no calf tenderness Neuro- alert, oriented x 3; no gross focal deficits Skin- warm & dry Laboratory Results: Last 24 Hours Test 06/11/17 20:30 06/12/17 00:15 06/12/17 04:08 06/12/17 05:44 Bedside Glucose 99 mg/dl 155 mg/dl Troponin I < 0.015 ng/ml Random Glucose 88 mg/dl Triglycerides Level 93 mg/dl Cholesterol Level 181 mg/dl HDL Cholesterol 38 mg/dl LDL Cholesterol, Calculated 124 mg/dl VLDL Cholesterol, Calculated 19 mg/dl Cholesterol/HDL Ratio 4.8 Test 06/12/17 09:57 Bedside Glucose 90 mg/dl Assessment & Plan DYSPNEA ON EXERTION / CAD Known ischemic heart disease. troponins negative Dobutamine stress test: negative for cardiac cath tomorrow PLEURAL EFFUSION Chest x-ray shows small left pleural effusion. Patient has history of prostate cancer as well as colonic polyps. Suggest follow-up chest x-ray in clinic in 4-6 weeks to make certain that the effusion does not worsen. RIGHT FACIAL PARESTHESIAE Seen in the ED about 2 weeks ago with paresthesiae right face. No acute findings on CT of brain. CTA of cervical and intracranial vessels unremarkable. Patient has persistent paresthesiae, no other neurologic symptoms. -- TSH normal Lyme negative -- chronic as per patient DEPRESSION Patient notes that he cries easily and is concerned that he is depressed. Further discussion with PCP recommended. VTE PROPHYLAXIS Moderate risk for VTE. SQ enoxaparin. Ambulate. RESUSCITATION STATUS Discussed with patient. He has a living will. He would like resuscitation attempted in the event of a cardiopulmonary arrest if there is a reasonable chance of a meaningful recovery, but does not want prolonged extraordinary measures if prognosis is poor. Therefore, code status = "Level 1" (full resuscitation). DISPOSITION Observation status on Telemetry Unit. Expected discharge to home. Family Medicine follow-up with Dr. Flaherty. . Current Inpatient Medications: Current Inpatient Medications Medications (Trade) Dose Ordered Sig/Tutu Route Start Time Stop Time Status Last Admin Dose Admin Enoxaparin Sodium (Lovenox Inj) 40 mg HS SC 06/11/17 21:00 07/11/17 20:59 Acetaminophen (Tylenol Tab) 650 mg Q4H PRN PO 06/11/17 14:30 07/11/17 14:29 06/12/17 04:10 650 MG Nitroglycerin (Nitrostat Tab) 0.4 mg UD PRN SL 06/11/17 14:30 07/11/17 14:29 06/12/17 12:20 0.4 MG Miscellaneous (Iv Fluids Completed) 1 ea PRN PRN N/A 06/11/17 15:00 06/11/18 14:59 Aspirin (Ecotrin Tab) 81 mg QPM PO 06/11/17 21:00 07/11/17 20:59 06/11/17 20:50 81 MG Clopidogrel Bisulfate (plAVix TAB) 75 mg QAM PO 06/12/17 09:00 07/12/17 08:59 06/12/17 07:35 75 MG Pantoprazole Sodium (Protonix Tab) 40 mg QAM PO 06/12/17 09:00 07/12/17 08:59 06/12/17 07:35 40 MG Artificial Tears (Artificial Tears) 1 drops QID OP 06/11/17 17:00 07/11/17 16:59 06/12/17 13:27 1 DROPS Magnesium Oxide (Mag-Ox Tab) 400 mg QAM PO 06/12/17 09:00 07/12/17 08:59 06/12/17 07:35 400 MG Psyllium Hydrophilic Mucilloid (Metamucil Powder) 1 pkt QAM PO 06/12/17 09:00 07/12/17 08:59 06/12/17 07:35 1 PKT Artificial Tears (Lacri-Lube Oph Oint) 1 appln HS OP 06/11/17 21:00 07/11/17 20:59 06/11/17 20:50 1 APPLN Sodium Chloride 1,000 ml @ 75 mls/hr [id number] IV 06/12/17 23:59 07/12/17 23:58 Aspirin (Aspirin Chew) 324 mg TODAY@0700 PO 06/13/17 07:00 06/13/17 18:00
[2017-06-12 19:26] VITALS: BP 154/85; PULSE 76; TEMP 36.2; O2SAT 96
[2017-06-12 20:08] VITALS: O2SAT 97
[2017-06-12] MEDS: ENOXAPARIN 40 MG/0.4 ML SYR SC SCH (21:00)
[2017-06-12] MEDS: ARTIFICIAL TEARS OP OINT 3.5 GM TUBE OP SCH (21:12)
--- NOTE | 2017-06-12 21:12 | DOBUTAMINE ECHO ---
*NOTICE TO RECEIVING DEMOCRAT AGENCY This information is strictly Confidential and protected under [place] law. [place] law prohibits you from making any further disclosure of this information unless further disclosure is expressly permitted by the written consent of the person to whom it pertains or is authorized by law. A general authorization for the release of medical or other information is not sufficient for this purpose. Hospital accepts no responsibility if the information is made available to any other person, INCLUDING THE PATIENT. Interpretation Summary * Name: ALTHEA TAVARES Study Date: 06/12/2017 10:59 AM BP: 167/83 mmHg * Patient Location: [facility]\S\N281\S\1 HR: 70 * : 1935 (M/d/yyy) Gender: Male Height: 67 in * Age: 81 yrs Ethnicity: [place] Weight: 169 lb * Ordering Physician: Jus Mcclure * Referring Physician: Self, Referred * Performed By: Loreto Jose RDCS * * Reason For Study: Coronary Artery Disease * BSA: 1.9 m2 * -- Conclusions -- * STRESS STUDY: * Abnormal dobutamine stress echocardiogram. * Normal ECG response to pharmacologic stress. * The left ventricular wall motion is normal at rest with normal stress wall motion noted. * Focal hypokinesis of the right ventricular apex was noted at peak pharmacologic stress and early in the posterior pharmacologic stress recovery interval, and was associated with findings of subjective shortness of breath that reproduced the patient's presenting symptoms. * The dobutamine infusion was discontinued, the patient received 5 mg of IV metoprolol and then 0.4 mg of sublingual nitroglycerin with subsequent resolution of his shortness of breath, and improvement in the transient focal wall motion abnormality limited to the RV apex. * RESTING STUDY: * There is mild concentric left ventricular hypertrophy. * The LV ejection Fraction = 55-60%. * There is no significant valvular heart disease on the resting study. * Doppler findings do not suggest pulmonary hypertension. Procedure Details * DOBUTAMINE ECHO, CPT#[id number] * ECHO DOPPLER, CPT #[id number] * ECHO COLOR FLOW, CPT #[id number] * A contrast injection of Definity was performed to improve assessment of LV function. * Contrast was injected into an intravenous site in the left arm. * One vial of Definity ultrasound contrast was diluted in normal saline to a total volume of 10 ml. A total of '4' ml of solution was administered during imaging. * Lot # [id number] of Definity utilized for procedure. * Expiration date . * The attending nurse who injected the contrast agent was Corazon Adair RN. Left Ventricle * The left ventricle is normal in size. * There is mild concentric left ventricular hypertrophy. * Ejection Fraction = 55-60%. * Left ventricular systolic function is normal. * The left ventricular wall motion is normal at rest. * The left ventricular ejection fraction increases normally with stress. The left ventricular end-systolic cavity size reduces post-stress (normal response). The left ventricular wall motion with stress is normal. Right Ventricle * The right ventricle is normal in size and function. * Transient focal hypokinesis of the RV apex noted in the apical four-chamber view during peak stress result in the post pharmacologic stress recovery interval. Atria * The left atrial size is normal. * Right atrial size is normal. * No ASD detected; PFO is not assessed. Mitral Valve * The mitral valve is normal. * There is no mitral valve stenosis. * Significant mitral regurgitation is absent. Tricuspid Valve * The tricuspid valve is normal. * There is no tricuspid stenosis. * Significant tricuspid regurgitation is absent. * Doppler findings do not suggest pulmonary hypertension. Aortic Valve * The aortic valve is trileaflet. * Aortic stenosis is absent. * There is no significant aortic regurgitation. Pulmonic Valve * The pulmonary valve is not well seen, but the Doppler examination is normal without significant regurgitation or stenosis. Great Vessels * The aortic root and proximal ascending aorta are normal sized. Pericardium * There is no pericardial effusion. Stress Parameters * Normal baseline electrocardiogram. * The stress ECG response was normal * Rare PVCs were noted on the stress ECG. * The stress portion of this study was personally supervised by the undersigned interpreting physician. * Rest heart rate was '70' BPM. * Rest blood pressure was '167/83' * Maximum heart rate achieved was 122 bpm. * Maximum heart rate was 87 % of maximum age-predicted heart rate. * Maximum blood pressure was '167/83' * Maximum Dobutamine infusion rate was '40' mcg/kg/min. * Dobutamine infusion was terminated due to achieving target heart rate * A total of 5 mg of IV Metoprolol was administered to reverse Dobutamine-induced tachycardia. Left Ventricular Diastolic Function * Grade I diastolic dysfunction, (abnormal relaxation pattern). MMode 2D Measurements and Calculations IVSd 1.2 cm IVSs 1.4 cm LVIDd 4.1 cm LVIDs 2.2 cm LVPWd 1.3 cm LVPWs 1.3 cm IVS/LVPW 0.91 FS 46.6 % EDV(Teich) 75.7 ml ESV(Teich) 16.4 ml EF(Teich) 78.4 % EDV(cubed) 70.7 ml ESV(cubed) 10.8 ml EF(cubed) 84.8 % % IVS thick 17.6 % % LVPW thick 2.9 % LV mass(C)d 185.5 grams LV mass(C)dI 98.6 grams/m\S\2 LV mass(C)s 93.4 grams LV mass(C)sI 49.6 grams/m\S\2 SV(Teich) 59.4 ml SI(Teich) 31.5 ml/m\S\2 SV(cubed) 59.9 ml SI(cubed) 31.8 ml/m\S\2 Ao root diam 3.1 cm Ao root area 7.3 cm\S\2 ACS 1.9 cm LA dimension 3.0 cm LA/Ao 0.97 LVAd ap4 29.9 cm\S\2 LVLd ap4 7.9 cm EDV(MOD-sp4) 95.1 ml EDV(sp4-el) 95.4 ml LVAs ap4 16.8 cm\S\2 LVLs ap4 6.7 cm ESV(MOD-sp4) 38.2 ml ESV(sp4-el) 35.4 ml EF(MOD-sp4) 59.8 % EF(sp4-el) 62.9 % LVAd ap2 26.9 cm\S\2 LVLd ap2 7.9 cm EDV(MOD-sp2) 83.0 ml EDV(sp2-el) 78.4 ml LVAs ap2 13.8 cm\S\2 LVLs ap2 6.2 cm ESV(MOD-sp2) 31.4 ml ESV(sp2-el) 25.9 ml EF(MOD-sp2) 62.2 % EF(sp2-el) 66.9 % LVLd %diff -1.26 % EDV(MOD-bp) 89.6 ml LVLs %diff -8.56 % ESV(MOD-bp) 34.5 ml EF(MOD-bp) 61.5 % SV(MOD-sp4) 56.9 ml SI(MOD-sp4) 30.2 ml/m\S\2 SV(MOD-sp2) 51.6 ml SI(MOD-sp2) 27.4 ml/m\S\2 SV(MOD-bp) 55.1 ml SI(MOD-bp) 29.3 ml/m\S\2 SV(sp4-el) 60.0 ml SI(sp4-el) 31.9 ml/m\S\2 SV(sp2-el) 52.5 ml SI(sp2-el) 27.9 ml/m\S\2 Doppler Measurements and Calculations MV E max amriel 46.1 cm/sec MV A max mariel 66.9 cm/sec MV E/A 0.69 MV dec time 0.32 sec Ao V2 max 123.8 cm/sec Ao max PG 6.1 mmHg Ao max PG (full) 3.0 mmHg LV V1 max PG 3.1 mmHg LV V1 max 88.3 cm/sec PA V2 max 143.9 cm/sec PA max PG 8.3 mmHg PI max mariel 150.7 cm/sec PI max PG 9.1 mmHg PI dec slope 204.9 cm/sec\S\2 PI P1/2t 215.4 msec TR max mariel 169.7 cm/sec
[2017-06-12] MEDS: ASPIRIN 81 MG ECTAB PO SCH (21:13)
[2017-06-12] MEDS ORDERED: SODIUM CHLORIDE 0.9% 1000ML 1,000 ML IV SCH (23:59)
[2017-06-13] VITALS (22 sets, daily range): BP systolic 102–171; BP diastolic 62–99; PULSE 69–91; TEMP 36.4–37; O2SAT 94–99
[2017-06-13 06:54] LABS: BASO % 0.4 %; BASO ABS # 0.03 K/uL (0-0.2); EOS % 2.9 %; EOS ABS # 0.22 K/uL (0-0.5); HEMATOCRIT 39.2 % (42-52); HEMOGLOBIN 13.3 g/dL (14.0-18.0); LYMPH % 35.3 %; LYMPH ABS # 2.65 K/uL (1.2-3.4); MEAN CELL VOLUME 88.5 fL (80-100); MEAN CORPUSCULAR HGB CONC 33.9 g/dl (32-36); MEAN PLATELET VOLUME 9.3 fL (7.4-10.4); MONO % 10.5 %; MONO ABS # 0.79 K/uL (0.11-0.59); NEUT % 50.9 %; NEUT ABS # 3.82 K/uL (1.4-6.5); PLATELET COUNT 200 K/uL (130-400); RED CELL DISTRIBUTION WIDTH SD 42.2 fL (36.4-46.3); WHITE BLOOD COUNT 7.51 K/uL (4.8-10.8)
[2017-06-13] MEDS ORDERED: ASPIRIN 81 MG CHEW PO SCH (07:00)
[2017-06-13 07:31] LABS: CALCIUM 8.1 mg/dl (8.5-10.1); CREATININE 0.95 mg/dl (0.60-1.40)
[2017-06-13] MEDS: PANTOprazole SOD 40 MG TAB PO SCH (08:00)
[2017-06-13] MEDS: CLOPIDOGREL BISULFATE 75 MG TAB PO SCH (08:00)
[2017-06-13] MEDS: PSYLLIUM 58.6% PWD PACK S\\F PO SCH (08:00)
[2017-06-13] MEDS: ARTIFICIAL TEARS OP SOLN OP SCH ×4 (08:01→19:38)
[2017-06-13] MEDS: MAGNESIUM OXIDE 400 MG TAB PO SCH (08:01)
[2017-06-13] MEDS ORDERED: D5W AND NSS 1,000 ML IV SCH (08:15)
[2017-06-13] MEDS ORDERED: NiCARDipine HCL INJ 2.5 MG/ML 10 ML AMP ONE (09:17)
[2017-06-13] MEDS ORDERED: MIDAZOLAM HCL 1 MG/ML 2ML VIAL ONE ×3 (09:17→12:04)
[2017-06-13] MEDS ORDERED: HEPARIN SOD (PORCINE) 1000 UNIT/ML 10 ML VIAL ONE ×2 (09:17→11:42)
[2017-06-13] MEDS ORDERED: FENTANYL CITRATE INJ 50 MCG/1 ML 2 ML VIAL ONE ×2 (09:17→12:05)
[2017-06-13] MEDS ORDERED: NITROGLYCERIN/D5W 100MCG/ML 20ML SYR ONE (09:18)
[2017-06-13] MEDS ORDERED: ZOLPIDEM TARTRATE 5 MG TAB PO PRN (09:45)
--- NOTE | 2017-06-13 09:50 | Progress Note ---
Medicine Progress Note Date & Time of Visit: Jun 13, 2017 at 09:50. Subjective seen resting in bed, comfortable states he feels ok denies active chest pain, dyspnea has insomnia, poor sleep quality denies other symptoms Objective Last 8 Hrs Date Time Temp Pulse Resp B/P (MAP) Pulse Ox O2 Delivery O2 Flow Rate FiO2 06/13/17 08:00 Room Air 06/13/17 08:00 36.6 79 16 171/76 (107) 96 06/13/17 04:26 36.9 76 20 130/72 (91) 96 Room Air Physical Exam: General- oriented x 3, not in distress, speaks in sentences with no effort Head- atraumatic Eyes- PERRL, EOMI, anicteric ENT- oropharynx clear Neck- supple, no JVD, no adenopathy, no thyromegaly; carotids +2/2 Lungs- clear breath sounds bilaterally, no rales/wheezes Heart- regular rhythm; no murmur, normal rate Abdomen- normal bowel sounds, soft, nontender Extremities- no pretibial edema, no calf tenderness Neuro- alert, oriented x 3; no gross focal deficits Skin- warm & dry Laboratory Results: Last 24 Hours Test 06/12/17 09:57 06/13/17 03:23 06/13/17 06:35 06/13/17 09:19 Bedside Glucose 90 mg/dl 86 mg/dl 96 mg/dl White Blood Count 7.51 K/uL Red Blood Count 4.43 M/uL Hemoglobin 13.3 g/dL Hematocrit 39.2 % Mean Corpuscular Volume 88.5 fL Mean Corpuscular Hemoglobin 30.0 pg Mean Corpuscular Hemoglobin Concent 33.9 g/dl Platelet Count 200 K/uL Mean Platelet Volume 9.3 fL Neutrophils (%) (Auto) 50.9 % Lymphocytes (%) (Auto) 35.3 % Monocytes (%) (Auto) 10.5 % Eosinophils (%) (Auto) 2.9 % Basophils (%) (Auto) 0.4 % Neutrophils # (Auto) 3.82 K/uL Lymphocytes # (Auto) 2.65 K/uL Monocytes # (Auto) 0.79 K/uL Eosinophils # (Auto) 0.22 K/uL Basophils # (Auto) 0.03 K/uL RDW Standard Deviation 42.2 fL RDW Coefficient of Variation 13.0 % Immature Granulocyte % (Auto) 0.0 % Immature Granulocyte # (Auto) 0.00 K/uL Sodium Level 140 mmol/L Potassium Level 4.0 mmol/L Chloride Level 107 mmol/L Carbon Dioxide Level 27 mmol/L Anion Gap 6.0 mmol/L Blood Urea Nitrogen 17 mg/dl Creatinine 0.95 mg/dl Est Creatinine Clear Calc Drug Dose 59.0 ml/min Estimated GFR () 87.3 Estimated GFR (Non- 75.3 BUN/Creatinine Ratio 17.7 Random Glucose 89 mg/dl Calcium Level 8.1 mg/dl Assessment & Plan DYSPNEA ON EXERTION / CAD Known ischemic heart disease troponins negative Dobutamine stress test: negative for cardiac cath PLEURAL EFFUSION Chest x-ray shows small left pleural effusion. Patient has history of prostate cancer as well as colonic polyps. Suggest follow-up chest x-ray in clinic in 4-6 weeks to make certain that the effusion does not worsen. RIGHT FACIAL PARESTHESIAE Seen in the ED about 2 weeks ago with paresthesiae right face. No acute findings on CT of brain. CTA of cervical and intracranial vessels unremarkable. Patient has persistent paresthesiae, no other neurologic symptoms. -- TSH normal Lyme negative -- chronic as per patient DEPRESSION Patient notes that he cries easily and is concerned that he is depressed. Further discussion with PCP recommended. VTE PROPHYLAXIS Moderate risk for VTE. SQ enoxaparin. Ambulate. RESUSCITATION STATUS Discussed with patient. He has a living will. He would like resuscitation attempted in the event of a cardiopulmonary arrest if there is a reasonable chance of a meaningful recovery, but does not want prolonged extraordinary measures if prognosis is poor. Therefore, code status = "Level 1" (full resuscitation). DISPOSITION Expected discharge to home. Family Medicine follow-up with Dr. Flaherty. . Current Inpatient Medications: Current Inpatient Medications Medications (Trade) Dose Ordered Sig/[facility] Route Start Time Stop Time Status Last Admin Dose Admin Enoxaparin Sodium (Lovenox Inj) 40 mg HS SC 06/11/17 21:00 07/11/17 20:59 Acetaminophen (Tylenol Tab) 650 mg Q4H PRN PO 06/11/17 14:30 07/11/17 14:29 06/12/17 04:10 650 MG Nitroglycerin (Nitrostat Tab) 0.4 mg UD PRN SL 06/11/17 14:30 07/11/17 14:29 06/12/17 12:20 0.4 MG Miscellaneous (Iv Fluids Completed) 1 ea PRN PRN N/A 06/11/17 15:00 06/11/18 14:59 Aspirin (Ecotrin Tab) 81 mg QPM PO 06/11/17 21:00 07/11/17 20:59 06/12/17 21:13 81 MG Clopidogrel Bisulfate (plAVix TAB) 75 mg QAM PO 06/12/17 09:00 07/12/17 08:59 06/13/17 08:00 75 MG Pantoprazole Sodium (Protonix Tab) 40 mg QAM PO 06/12/17 09:00 07/12/17 08:59 06/13/17 08:00 40 MG Artificial Tears (Artificial Tears) 1 drops QID OP 06/11/17 17:00 07/11/17 16:59 06/13/17 08:01 1 DROPS Magnesium Oxide (Mag-Ox Tab) 400 mg QAM PO 06/12/17 09:00 07/12/17 08:59 06/13/17 08:01 400 MG Psyllium Hydrophilic Mucilloid (Metamucil Powder) 1 pkt QAM PO 06/12/17 09:00 07/12/17 08:59 06/12/17 07:35 1 PKT Artificial Tears (Lacri-Lube Oph Oint) 1 appln HS OP 06/11/17 21:00 07/11/17 20:59 06/12/17 21:12 1 APPLN Aspirin (Aspirin Chew) 324 mg TODAY@0700 PO 06/13/17 07:00 06/13/17 18:00 06/13/17 06:30 324 MG Dextrose/Sodium Chloride 1,000 ml @ 60 mls/hr [id number] IV 06/13/17 08:15 07/13/17 08:14 06/13/17 08:18 60 MLS/HR
[2017-06-13] MEDS ORDERED: LIDOCAINE HCL 1% 20 ML VIAL ONE (09:52)
--- NOTE | 2017-06-13 10:43 | Post Sedation Assessment ---
Post Sedation Assessment General Date of Sedation Jun 13, 2017. Vital Signs: Vital Signs Past 12 Hours Date Time Temp Pulse Resp B/P (MAP) Pulse Ox O2 Delivery O2 Flow Rate FiO2 06/13/17 08:00 Room Air 06/13/17 08:00 36.6 79 16 171/76 (107) 96 06/13/17 04:26 36.9 76 20 130/72 (91) 96 Room Air 06/13/17 00:19 37.0 79 18 138/68 (91) 95 Room Air 06/12/17 23:35 Room Air Post Sedation Plan On clinical assessment, the patient appears to have tolerated the sedation without complications. Patient is recovering as anticipated. Patient will continue to be monitored by nursing and may be discharged when sedation discharge criteria are met per below protocol. Upon Completions of procedure and additional 15 minutes continue every 5 minute vital signs and the P.A.R. score; then discharge to a Phase I or Fast Track to Phase II per the following guidelines: * Discharge Patient to appropriate Phase II area if PAR is 8 or greater or return to pre- procedure baseline. The post - procedure orders will be as directed. * If PAR score is less than 8 or not return to pre-procedure baseline then patient will follow Phase I monitoring till PAR is reached for Phase II. The Phase I may be done in procedure room or may call to secure a Phase I area. * If naloxone or flumazenil are used for reversal, hold in Phase I for an additional 60 -120 minutes before discharge to Phase II. Please call the Sedation Physician to re-evaluate and complete post-note for discharge to Phase II area. Do NOT discharge from procedure sedation or Phase 1 until post- sedation evaluation note is complete by procedure /sedation MD Sedation Discharge Instructions to be given to the patient at discharge to home.
--- NOTE | 2017-06-13 10:43 | Pre Sedation Assessment ---
Pre Sedation Assessment General Date of Sedation: Jun 13, 2017. Vital Signs Past 12 Hours Date Time Temp Pulse Resp B/P (MAP) Pulse Ox O2 Delivery O2 Flow Rate FiO2 06/13/17 08:00 Room Air 06/13/17 08:00 36.6 79 16 171/76 (107) 96 06/13/17 04:26 36.9 76 20 130/72 (91) 96 Room Air 06/13/17 00:19 37.0 79 18 138/68 (91) 95 Room Air 06/12/17 23:35 Room Air Review Cardiovascular: regular rate, rhythm, no edema, no JVD Lungs: chest non-tender, lungs clear Pre-Sedation Airway Assessment Smoking Status: Never Smoker Oral Cavity: WNL Mallampati Classification: Class II ASA Classification: Class III NPO Status Date of Last Intake of Fluids: Jun 13, 2017 Time of Last Intake of Fluids: 0000 Date of Last Intake of Solids: Jun 13, 2017 Time of Last Intake of Solids: 0100 Procedure Planning Contraindications for Sedation: None Current Medications Reviewed: Yes Notes The planned sedation has been discussed with the patient. Informed Consent was obtained. I have identified the patient, determined the appropriateness of sedation and have assessed the patient immediately prior to the procedure. All medicine(s) and interventions are by my order.
--- NOTE | 2017-06-13 10:56 | Cardiac Catheterization ---
Procedure Note Procedure Date Jun 13, 2017. Pre-Procedure Diagnosis Angina, Positive Stress Test, CAD AUC Score 8 Post-Procedure Diagnosis Severe CAD, Elevated Intracardiac Pressures Procedure(s) Performed Coronary Angiography, Left Heart Cath Malt Loader Dr. Mcclure Children Teacher(s) Xavier RTR Estimated Blood Loss 5cc Medication(s) Fentanyl, Heparin, Nicardipine, Nitroglycerin, Versed, Lidocaine 1% Summary of Findings Severe mid LAD, ostial and proximal D1 stenosis Proximal LAD stent with 30% ISR Patent mid Lcx stent Hemodynamics Rest Ao: 132/97/65 Final Ao: 147/104/72 LV: 137/4/15 Recommendations PCI without planned CABG Specimens None Radiation Exposure (mGy) 887 Contrast (mls) 45 Anesthesia Moderate sedation. Start 1012. End 1030. Sedation monitor: Gini COYLE Procedural Complication(s) None Disposition Patient remained in cath labn for PCI LAD / D1 ACC Data Cardiac Status Clinical evaluation leading to the procedure CAD Presntation: Unstable angina, Positive Stress Test Anginal Classification: CCS III Heart Failure: No Cardiogenic Shock w/in 24Hrs: No Cardiac Arrest w/in 24Hrs: No Imaging studies past 6 months: Yes Stress studies past 6 months: Yes Stress Echocardiogram: Yes - Positive, Risk/Extent of Ischemia (High) Coronary Anatomy Dominant: Right Left Main (% Stenosis): Normal LAD (% Stenosis): Proximal (patent stent with 30% in-stent restenosis), Mid (60 % distal to stent followed by 80%) D1 (% Stenosis): Ostial (70%), Proximal (75%) Circumflex (% Stenosis): Mid (patent stent), Distal (10-20% diffuse) OM1 (% Stenosis): Normal OM2 (% Stenosis): Normal (small (1mm) vessel) OM3 (% Stenosis): Normal L PL1 (% Stenosis): Normal L PL2 (% Stenosis): Normal RCA (% Stenosis): Mid (20-30%) R PDA (% Stenosis): Normal (small vessel) R PL1 (% Stenosis): Normal AM (% Stenosis): Normal Diagnostic Status: Urgent Closure Device Percutaneous Entry Location: Radial Closure Device: Radial Band Intraprocedure Events Significant Dissection: No Perforation: No
[2017-06-13] MEDS ORDERED: DOPamine 400MG / 250ML D5W ONE (11:35)
[2017-06-13] MEDS ORDERED: ATROPINE SULFATE 0.1 MG/ML 10 ML SYR ONE (11:42)
[2017-06-13] MEDS ORDERED: METOPROLOL TARTRATE 1 MG/ML VIAL ONE (11:47)
[2017-06-13] MEDS ORDERED: CLOPIDOGREL BISULFATE 300 MG TAB PO ONE (12:33)
--- NOTE | 2017-06-13 12:43 | Post Sedation Assessment ---
Post Sedation Assessment General Date of Sedation Jun 13, 2017. Vital Signs: Vital Signs Past 12 Hours Date Time Temp Pulse Resp B/P (MAP) Pulse Ox O2 Delivery O2 Flow Rate FiO2 06/13/17 12:40 85 16 128/84 (99) 95 Room Air 06/13/17 12:30 85 16 131/84 (100) 95 Room Air 06/13/17 08:00 Room Air 06/13/17 08:00 36.6 79 16 171/76 (107) 96 06/13/17 04:26 36.9 76 20 130/72 (91) 96 Room Air Post Procedure Recovery Score Activity: (2) Moves 4 extremities * Respiration: (2) Deep breath/cough Circulation: (2) +/-20% PreAnes Value Consciousness: (2) Fully Awake Oxygen Saturation: (2) > 92% On Room Air Post Anesthesia Score: 10 Discharge Sedation Level of Care: Fast Track Phase II Post Sedation Plan On clinical assessment, the patient appears to have tolerated the sedation without complications. Patient is recovering as anticipated. Patient will continue to be monitored by nursing and may be discharged when sedation discharge criteria are met per below protocol. Upon Completions of procedure and additional 15 minutes continue every 5 minute vital signs and the P.A.R. score; then discharge to a Phase I or Fast Track to Phase II per the following guidelines: * Discharge Patient to appropriate Phase II area if PAR is 8 or greater or return to pre- procedure baseline. The post - procedure orders will be as directed. * If PAR score is less than 8 or not return to pre-procedure baseline then patient will follow Phase I monitoring till PAR is reached for Phase II. The Phase I may be done in procedure room or may call to secure a Phase I area. * If naloxone or flumazenil are used for reversal, hold in Phase I for an additional 60 -120 minutes before discharge to Phase II. Please call the Sedation Physician to re-evaluate and complete post-note for discharge to Phase II area. Do NOT discharge from procedure sedation or Phase 1 until post- sedation evaluation note is complete by procedure /sedation MD Sedation Discharge Instructions to be given to the patient at discharge to home.
[2017-06-13] MEDS ORDERED: SODIUM CHLORIDE 0.9% 1000ML 1,000 ML IV SCH (12:45)
--- NOTE | 2017-06-13 13:09 | Cardiac Catheterization ---
Procedure Note Procedure Date Jun 13, 2017. Pre-Procedure Diagnosis Positive Stress Test AUC Score 7 Post-Procedure Diagnosis Severe CAD Procedure(s) Performed Drug Eluting Stent, IVUS Pin Sticker Jong Machine Ii Trimmer(s) donya Estimated Blood Loss 25 Medication(s) Atropine, Clopidogrel, Dopamine, Fentanyl, Heparin, Metoprolol, Nicardipine, Nitroglycerin, Versed, Lidocaine 1% Summary of Findings Indication: Refractory angina, positive stress test Access: 6Fr right radial artery Catheters: EBU 3.5 guide Findings: For full details of patient's coronary angiography please see cath report dictated by Dr. Mcclure. Patient found to have Mid LAD instent restenosis with severe disease more distal to prior stent. Also noted to have ostial and focal proximal 1st diagonal disease. -- PCI -- Antithrombotic therapy: Heparin, Clopidogrel Procedure: LM cannulated with EBU3.5 guide BMW wire passed across lesion into distal LAD Whisper wire passed into 1st diagonal IVUS used to assess instent restenosis and extent of disease -- Severe, mildly calcified disease distal to stent, in-stent restenosis most prominent distal to take-off of diagonal. Mild ISR proximal to take-off of diagonal. Mid LAD lesion predilated with 2.0 compliant balloon Dilated LAD lesion stented with 2.75 x 28 Xience CHI Stent post-dilated with stent balloon Post-dilation, diagonal vessel pinched with GURU 2 flow, ST changes and hypotension. Received IV fluid bolus, atropine and dopamine. Diagonal ostium dilated with 1.5 and 2.0 balloons with re-established flow. Dopamine discontinued, given IV metoprolol for persistent tachycardia Residual severe stenosis at ostium/proximal diagonal and decision made to stent lesions Stent struts again dilated with 2.5 balloon 2.25 x 18 Xience CHI placed to ostium of diagonal and post dilated with stent balloon to high atmospheres Mid LAD stent again post-dilated with 2.5 balloon. IC vasodilators administered for spasm Post procedure GURU 3 flow, stent well expanded with minimal residual stenosis at ostium of diagonal, and no apparent cardiac complications. Arterial Closure: TR band Summary: 1. Successful PCI of mid LAD and ostium of 1st diagonal with 2 drug-eluting stents - 2.75 x 28 Xience CHI overlapping the distal aspect of prior stent - 2.25 x 18 Xience CHI placed to ostium of 1st diagonal Recommendations: To PCU for continued monitoring Loaded with clopidogrel 300mg in chemical laboratory chief Continue dual-antiplatelet therapy for at least 1 year, possibly indefinitely Continue statin, ASCVD risk factor modification per Dr. Coyne Consult cardiac Rehab Hemodynamics Rest Ao: 125/61/89 Final Ao: 135/64/98 LV: -- Recommendations PCI without planned CABG Specimens None Radiation Exposure (mGy) 6043 Contrast (mls) 220 Visi Fluids (cc crystalloids) 900 Drains None Anesthesia Moderate Procedural Complication(s) None Disposition PCU ACC Data Cardiac Status Clinical evaluation leading to the procedure CAD Presntation: Stable angina, Positive Stress Test Heart Failure: No, NYHA Class: CCS I Cardiogenic Shock w/in 24Hrs: No Cardiac Arrest w/in 24Hrs: No Imaging studies past 6 months: Yes Stress studies past 6 months: Yes Stress Echocardiogram: Yes - Positive, Risk/Extent of Ischemia (Intermediate) Diagnostic Physician's Name: Jus Mcclure DO Closure Device Percutaneous Entry Location: Radial Closure Device: Radial Band Recommendations: PCI without planned CABG PCI Indication: Angina despite med therapy, + Stress Test Lesion Segment Name: Mid LAD Culprit Artery: Yes Stenosis Prior to Rx (%): 70% Chronic Total Occlusion: No IVUS: Yes FFR: No Pre-Procedure GURU Flow: 3 Previously Treated Lesion: No Lesion Complexity: High/C Lesion Length (mm): 25 Thrombus Present: No Bifurcation Lesion: Yes Guidewire Across Lesion: Yes Guidewire: Stenosis Post-Procedure (%): 0 Post-Procedure GURU Flow: 3 Device(s) Deployed: Yes Intraprocedure Events Significant Dissection: No Perforation: No
[2017-06-13] MEDS: ENOXAPARIN 40 MG/0.4 ML SYR SC SCH (19:37)
[2017-06-13] MEDS: ASPIRIN 81 MG ECTAB PO SCH (19:37)
[2017-06-13] MEDS: ARTIFICIAL TEARS OP OINT 3.5 GM TUBE OP SCH (19:38)
[2017-06-14] VITALS (8 sets, daily range): BP systolic 110–166; BP diastolic 57–87; PULSE 86–95; TEMP 36.6–37.1; O2SAT 95–98
[2017-06-14 06:16] LABS: HEMATOCRIT 38.7 % (42-52); HEMOGLOBIN 13.5 g/dL (14.0-18.0); MEAN CORPUSCULAR HEMOGLOBIN 30.3 pg (25-34); MEAN CORPUSCULAR HGB CONC 34.9 g/dl (32-36); MEAN PLATELET VOLUME 9.4 fL (7.4-10.4); PLATELET COUNT 202 K/uL (130-400); RED CELL DISTRIBUTION WIDTH CV 13.2 % (11.5-14.5); RED CELL DISTRIBUTION WIDTH SD 42.1 fL (36.4-46.3); WHITE BLOOD COUNT 10.92 K/uL (4.8-10.8)
[2017-06-14 06:49] LABS: CREATININE 0.9 mg/dl (0.60-1.40)
[2017-06-14] MEDS: MAGNESIUM OXIDE 400 MG TAB PO SCH (09:08)
[2017-06-14] MEDS: CLOPIDOGREL BISULFATE 75 MG TAB PO SCH (09:08)
[2017-06-14] MEDS: PANTOprazole SOD 40 MG TAB PO SCH (09:08)
[2017-06-14] MEDS: ARTIFICIAL TEARS OP SOLN OP SCH ×4 (09:09→20:57)
[2017-06-14] MEDS: PSYLLIUM 58.6% PWD PACK S\\F PO SCH (09:09)
[2017-06-14] MEDS ORDERED: LISINOPRIL 5 MG TAB PO ONE (10:16)
--- NOTE | 2017-06-14 11:00 | Cardiology Follow-Up ---
Subjective General Date of Service: Jun 14, 2017. Pt evaluation today including: conversation w/ patient, physical exam, chart review, lab review, review of studies, review of inpatient medication list History of Present Illness The patient is a 81 year old male seen in follow-up. Denies chest discomfort or shortness of breath. Reports feeling unsteady on his feet. Denies falls. No dysrhythmias on telemetry. Patient unsure if he is ready for discharge today. Allergies Coded Allergies: Atorvastatin (Verified Allergy, Intermediate, RASH, 06/11/17) PER CAT - PT HAS TOLERATED CRESTOR BEFORE Bacitracin (Verified Allergy, Intermediate, RASH, 06/11/17) Metoprolol (Verified Allergy, Unknown, Rash., 06/11/17) Rosuvastatin (Verified Allergy, Unknown, Rash., 06/11/17) Social History Smoking Status: Never Smoker Hx Tobacco Use In Past Year?: No Hx Alcohol Use - Type And Amou: No Hx Substance Use - Type And Am: No Problem List Medical Problems: (1) Facial paresthesia Status: Acute (2) Irritation of eye Status: Acute (3) Right facial numbness Status: Acute Review of Systems Respiratory: No cough, No sputum, No wheezing, No shortness of breath, No dyspnea on exertion, No dyspnea at rest, No hemoptysis Cardiac: No chest pain, No orthopnea, No PND, No edema, No claudication, No palpitations Physical Exam Vital Signs Last Vital Signs Documentation Date Time Temp Pulse Resp B/P (MAP) Pulse Ox O2 Delivery O2 Flow Rate FiO2 06/14/17 08:00 96 Room Air 06/14/17 07:43 37.1 89 19 156/87 (110) Physical Exam Constitutional: General Apperance: well-nourished Level of Distress: NAD Ambulation: limited ambulation ENMT: normal ENT inspection Lungs: Auscultation: breath sounds normal, no wheezing, no rales/crackles, no rhonchi Cardiovascular: Heart Auscultation: RRR, normal S1, normal S2, no murmurs, no rubs, no gallops Abdomen: Inspection & Palpation: soft, non-distended, no tenderness, guarding & rebound Musculoskeletal: normal Extremities: no cyanosis, no edema, no clubbing, no ulcers, pertinent finding ( Right radial pulse palpable. No hematoma or ecchymosis.) Neurologic: Gait & Station: pertinent finding (No focal deficit ) Cranial Nerves: grossly intact Assessment and Plan Assessment and Plan Impression: 1. CAD s/p CHI to LAD and D1 2. HTN - uncontrolled 3. Dyslipidemia with statin intolerance 4. Gait unsteadiness. Plan/Recommendations: Add lisinopril 5 mg daily to improve blood pressure control. Repeat basic metabolic panel in 1 week as outpatient. Stressed importance of continuing Plavix for 1 year uninterrupted post drug-eluting stent implantation. Aspirin should be continued lifelong. Post catheterization activity restrictions as noted below. Please copy activity restrictions onto discharge instructions. Recommend PT/OT evaluation prior to discharge. ACTIVITY RECOMMENDATIONS: * Do not drive or operate any motorized equipment for the next three days. * Limit stair usage (2 or 3 trips a day only) for the next three days. * Do not lift anything heavier than 10 pounds for the next three days. * Do not engage in vigorous exercise or any sports for the next five days. * You may shower the day after your procedure, but do not immerse the area for three days. Cleanse the site gently with soap and water. SPECIAL CARE INSTRUCTIONS: * You may replace the pressure dressing or band-aid the morning after the procedure. * After your procedure, it is normal to have a small bruise or small lump at the site. Examine your site daily for any change in the bruise or lump, redness, swelling, drainage or numbness. Notify your doctor if any change. BLEEDING: * If there is a small amount of bleeding at the site, lie down and apply firm pressure with a clean cloth for ten minutes. When the bleeding stops, lie quietly keeping the procedure limb straight for six hours. Notify your doctor as soon as possible. * If the bleeding does not stop after ten minutes or if there is a large amount of bleeding or spurting, call 911 immediately. Continue to lie down and hold firm pressure until help arrives. SKIN IRRITATION: * You may experience some redness and/or swelling in the area where radiation was administered. If any skin irritation occurs, please contact your family physician. Laboratory Results Last 24 Hours Test 06/13/17 11:07 06/13/17 11:51 06/13/17 12:52 06/13/17 13:02 Kaolin Activated Coagulation Time 230 SECONDS 241 SECONDS Bedside Glucose 95 mg/dl 92 mg/dl Test 06/14/17 05:40 White Blood Count 10.92 K/uL Red Blood Count 4.45 M/uL Hemoglobin 13.5 g/dL Hematocrit 38.7 % Mean Corpuscular Volume 87.0 fL Mean Corpuscular Hemoglobin 30.3 pg Mean Corpuscular Hemoglobin Concent 34.9 g/dl RDW Standard Deviation 42.1 fL RDW Coefficient of Variation 13.2 % Platelet Count 202 K/uL Mean Platelet Volume 9.4 fL Creatinine 0.90 mg/dl Est Creatinine Clear Calc Drug Dose 62.3 ml/min Estimated GFR () 93.2 Estimated GFR (Non- 80.4
--- NOTE | 2017-06-14 20:03 | Progress Note ---
Medicine Progress Note Date & Time of Visit: Jun 14, 2017 at 20:00. Subjective Seen resting in bed side chair, comfortable Chest pain-free, denies shortness of breath Reports polyuria and incontinence, denies dysuria No other symptoms Objective Last 8 Hrs Date Time Temp Pulse Resp B/P (MAP) Pulse Ox O2 Delivery O2 Flow Rate FiO2 06/14/17 16:00 95 Room Air 06/14/17 16:00 36.8 86 18 133/71 (91) 95 Room Air Physical Exam: General- oriented x 3, not in distress, speaks in sentences with no effort Head- atraumatic Eyes- anicteric ENT- oropharynx clear Neck- supple, no JVD Lungs- clear breath sounds bilaterally, no rales/wheezes Heart- regular rhythm; no murmur, normal rate Abdomen- normal bowel sounds, soft, nontender Extremities- no pretibial edema, no calf tenderness Neuro- alert, oriented x 3; no gross focal deficits Skin- warm & dry Laboratory Results: Last 24 Hours Test 06/14/17 00:00 06/14/17 05:40 Urine Color YELLOW Urine Appearance CLEAR Urine pH 6.0 Urine Specific [place] 1.011 Urine Protein NEG Urine Glucose (UA) NEG Urine Ketones NEG Urine Occult Blood 2+ Urine Nitrite NEG Urine Bilirubin NEG Urine Urobilinogen NEG Urine Leukocyte Esterase NEG Urine WBC (Auto) 1-5 /hpf Urine RBC (Auto) 5-10 /hpf Urine Hyaline Casts (Auto) 1-5 /lpf Urine Epithelial Cells (Auto) >30 /lpf Urine Bacteria (Auto) NEG Urine Renal Epithelial Cells /lpf White Blood Count 10.92 K/uL Red Blood Count 4.45 M/uL Hemoglobin 13.5 g/dL Hematocrit 38.7 % Mean Corpuscular Volume 87.0 fL Mean Corpuscular Hemoglobin 30.3 pg Mean Corpuscular Hemoglobin Concent 34.9 g/dl RDW Standard Deviation 42.1 fL RDW Coefficient of Variation 13.2 % Platelet Count 202 K/uL Mean Platelet Volume 9.4 fL Creatinine 0.90 mg/dl Est Creatinine Clear Calc Drug Dose 62.3 ml/min Estimated GFR () 93.2 Estimated GFR (Non- 80.4 Assessment & Plan DYSPNEA ON EXERTION / CAD June 14, 2017 status post cardiac cath with placement of 2 stents drug-eluting for severe CAD Continue aspirin Plavix Lisinopril added for blood pressure control Follow further recommendations by cardiology Needs close cardiology outpatient follow-up PT OT evaluation Patient agreeable with rehab if needed POLYURIA Also has incontinence Ordered Damico catheter Ordered urinalysis Monitor PLEURAL EFFUSION Chest x-ray shows small left pleural effusion. Patient has history of prostate cancer as well as colonic polyps. Suggest follow-up chest x-ray in clinic in 4-6 weeks to make certain that the effusion does not worsen. RIGHT FACIAL PARESTHESIAE Seen in the ED about 2 weeks ago with paresthesiae right face. No acute findings on CT of brain. CTA of cervical and intracranial vessels unremarkable. Patient has persistent paresthesiae, no other neurologic symptoms. -- TSH normal Lyme negative -- chronic as per patient DEPRESSION Patient notes that he cries easily and is concerned that he is depressed. Further discussion with PCP recommended. VTE PROPHYLAXIS Moderate risk for VTE. SQ enoxaparin. Ambulate. RESUSCITATION STATUS Discussed with patient. He has a living will. He would like resuscitation attempted in the event of a cardiopulmonary arrest if there is a reasonable chance of a meaningful recovery, but does not want prolonged extraordinary measures if prognosis is poor. Therefore, code status = "Level 1" (full resuscitation). DISPOSITION Usually lives at home Will order PT OT evaluation Age and agreeable with rehab inpatient if needed Family Medicine follow-up with Dr. Flaherty. . Current Inpatient Medications: Current Inpatient Medications Medications (Trade) Dose Ordered Sig/Tutu Route Start Time Stop Time Status Last Admin Dose Admin Enoxaparin Sodium (Lovenox Inj) 40 mg HS SC 06/11/17 21:00 07/11/17 20:59 06/13/17 19:37 40 MG Acetaminophen (Tylenol Tab) 650 mg Q4H PRN PO 06/11/17 14:30 07/11/17 14:29 06/12/17 04:10 650 MG Nitroglycerin (Nitrostat Tab) 0.4 mg UD PRN SL 06/11/17 14:30 07/11/17 14:29 06/12/17 12:20 0.4 MG Miscellaneous (Iv Fluids Completed) 1 ea PRN PRN N/A 06/11/17 15:00 06/11/18 14:59 Aspirin (Ecotrin Tab) 81 mg QPM PO 06/11/17 21:00 07/11/17 20:59 06/13/17 19:37 81 MG Clopidogrel Bisulfate (plAVix TAB) 75 mg QAM PO 06/12/17 09:00 07/12/17 08:59 06/14/17 09:08 75 MG Pantoprazole Sodium (Protonix Tab) 40 mg QAM PO 06/12/17 09:00 07/12/17 08:59 06/14/17 09:08 40 MG Artificial Tears (Artificial Tears) 1 drops QID OP 06/11/17 17:00 07/11/17 16:59 06/14/17 17:58 1 DROPS Magnesium Oxide (Mag-Ox Tab) 400 mg QAM PO 06/12/17 09:00 07/12/17 08:59 06/14/17 09:08 400 MG Psyllium Hydrophilic Mucilloid (Metamucil Powder) 1 pkt QAM PO 06/12/17 09:00 07/12/17 08:59 06/14/17 09:09 1 PKT Artificial Tears (Lacri-Lube Oph Oint) 1 appln HS OP 06/11/17 21:00 07/11/17 20:59 06/13/17 19:38 1 APPLN Zolpidem Tartrate (Ambien Tab) 2.5 mg HS PRN PO 06/13/17 09:45 07/13/17 09:44 Lisinopril (Zestril Tab) 5 mg QAM PO 06/15/17 09:00 07/15/17 08:59
[2017-06-14] MEDS: ASPIRIN 81 MG ECTAB PO SCH (20:51)
[2017-06-14] MEDS: ENOXAPARIN 40 MG/0.4 ML SYR SC SCH (20:52)
[2017-06-14] MEDS: ARTIFICIAL TEARS OP OINT 3.5 GM TUBE OP SCH (20:57)
[2017-06-15] VITALS (9 sets, daily range): BP systolic 100–131; BP diastolic 52–65; PULSE 75–90; TEMP 36.5–37; O2SAT 96–98
[2017-06-15 06:40] LABS: CALCIUM 8.1 mg/dl (8.5-10.1); CREATININE 1.07 mg/dl (0.60-1.40); POTASSIUM 3.9 mmol/L (3.5-5.1)
[2017-06-15] MEDS: MAGNESIUM OXIDE 400 MG TAB PO SCH (07:22)
[2017-06-15] MEDS: ARTIFICIAL TEARS OP SOLN OP SCH ×4 (07:22→20:51)
[2017-06-15] MEDS: PSYLLIUM 58.6% PWD PACK S\\F PO SCH (07:23)
[2017-06-15] MEDS: CLOPIDOGREL BISULFATE 75 MG TAB PO SCH (07:23)
[2017-06-15] MEDS: PANTOprazole SOD 40 MG TAB PO SCH (07:23)
[2017-06-15] MEDS: LISINOPRIL 5 MG TAB PO SCH (07:24)
--- NOTE | 2017-06-15 08:06 | Cardiology Follow-Up ---
Subjective General Date of Service: Jun 15, 2017. Chief Complaint: follow up exertional SOB, cardiac stents Pt evaluation today including: conversation w/ patient, physical exam History of Present Illness The patient is a 81 year old male seen in follow up. Patient feeling well. Tolerating new lisinopril thus far, BP improved. Telemetry reveals SR. Allergies Coded Allergies: Atorvastatin (Verified Allergy, Intermediate, RASH, 06/11/17) PER CAT - PT HAS TOLERATED CRESTOR BEFORE Bacitracin (Verified Allergy, Intermediate, RASH, 06/11/17) Metoprolol (Verified Allergy, Unknown, Rash., 06/11/17) Rosuvastatin (Verified Allergy, Unknown, Rash., 06/11/17) Social History Smoking Status: Never Smoker Hx Tobacco Use In Past Year?: No Hx Alcohol Use - Type And Amou: No Hx Substance Use - Type And Am: No Problem List Medical Problems: (1) Facial paresthesia Status: Acute (2) Irritation of eye Status: Acute (3) Right facial numbness Status: Acute Physical Exam Vital Signs Last Vital Signs Documentation Date Time Temp Pulse Resp B/P (MAP) Pulse Ox O2 Delivery O2 Flow Rate FiO2 06/15/17 04:00 97 Room Air 06/15/17 03:57 36.7 88 20 113/64 (80) Physical Exam Constitutional: General Apperance: well-nourished Level of Distress: NAD Ambulation: limited ambulation ENMT: normal ENT inspection Lungs: Auscultation: breath sounds normal, no wheezing, no rales/crackles, no rhonchi Cardiovascular: Heart Auscultation: RRR, normal S1, normal S2, no murmurs, no rubs, no gallops Abdomen: Inspection & Palpation: soft, non-distended, no tenderness, guarding & rebound Musculoskeletal: normal Extremities: no cyanosis, no edema, no clubbing, no ulcers, pertinent finding ( Right radial pulse palpable. No hematoma or ecchymosis.) Neurologic: Gait & Station: pertinent finding (No focal deficit ) Cranial Nerves: grossly intact Assessment and Plan Assessment and Plan Impression: 81 year old male 1. NGUYEN, unstable angina equivalent s/p PCI of mid LAD and ostium of 1st diagonal with 2 drug-eluting stents - 2.75 x 28 Xience CHI overlapping the distal aspect of prior stent - 2.25 x 18 Xience CHI placed to ostium of 1st diagonal 2. HTN, improved on lisinopril 5 mg 3. Debilitation 4. facial paresthesias, no muscle weakness Plan: Continue ASA and clopidogrel.-chronic dual antiplatelet therapy. Continue lisinopril. Longstanding h/o intolerance to beta blockers and statins. Increase activity, CS physical therapy. Repeat EKG for new post stent baseline Laboratory Results Last 24 Hours Test 06/15/17 05:57 Sodium Level 135 mmol/L Potassium Level 3.9 mmol/L Chloride Level 101 mmol/L Carbon Dioxide Level 28 mmol/L Anion Gap 6.0 mmol/L Blood Urea Nitrogen 17 mg/dl Creatinine 1.07 mg/dl Est Creatinine Clear Calc Drug Dose 52.4 ml/min Estimated GFR () 75.6 Estimated GFR (Non- 65.2 BUN/Creatinine Ratio 15.9 Random Glucose 94 mg/dl Calcium Level 8.1 mg/dl
--- NOTE | 2017-06-15 12:10 | Progress Note ---
Internal Med Progress Note Date of Service: Jun 15, 2017. Provider Documentation: SUBJECTIVE: Seen and examined at bedside States not feeling well today but was unsure about specifics Feels weak and has mild dizziness Denies chest pain, SOB, abd pain No other complaints OBJECTIVE: Vital Signs-as noted below Physical Exam: General Appearance:Moderately built and nourished, no apparent distress Head: normocephalic, Atraumatic Eyes: normal inspection, EOMI, PERRL Neck: supple, Trachea midline Respiratory/Chest: Normal breath sounds, CTA Cardiovascular: S1, S2, No murmur Abdomen/GI:Soft, Non tender, Bowel sounds present Extremities/Musculoskelatal:normal inspection, 1+ B/L edema Neurologic/Psych:AAOX3, grossly no focal neurological deficits Skin: normal color, warm Lab data as noted below. ASSESSMENT & PLAN: NGUYEN/Unstable Angina equivalent s/p PCI to mid LAD and ostium of 1st diagonal with 2 drug-eluting stents Continue ASA, clopidogrel, lisinopril. H/O intolerance to beta blockers and statins. Appreciate Cardiology Input May need Rehab Pleural Effusion: Chest x-ray shows small left pleural effusion. Patient has history of prostate cancer as well as colonic polyps. Needs follow-up chest x-ray in 4-6 weeks R Facial Paresthesiae Seen in the ED about 2 weeks ago with paresthesiae right face. No acute findings on CT Head CTA of cervical and intracranial vessels unremarkable. Persistent paresthesiae, no other neurologic symptoms. TSH normal, Lyme negative chronic as per patient Depression Needs follow up with PCP for further recommendations DVT Px: SQ Lovenox Ambulate. Code Status Full Code Disposition: lives alone at home PT/OT evaluation May need rehab Vs Home with Home [facility] follow-up with Dr. Flaherty Vital Signs: Date Time Temp Pulse Resp B/P (MAP) Pulse Ox O2 Delivery O2 Flow Rate FiO2 06/15/17 12:00 97 Room Air 06/15/17 12:00 36.7 75 18 131/56 (81) 97 Room Air 06/15/17 08:00 37.0 82 18 100/52 (68) 96 Room Air 06/15/17 08:00 96 Room Air 06/15/17 04:00 97 Room Air 06/15/17 03:57 36.7 88 20 113/64 (80) 97 Room Air 06/14/17 23:59 98 Room Air 06/14/17 23:59 36.6 95 17 112/64 (80) 98 Room Air 06/14/17 20:00 37.0 91 18 110/57 (74) 96 Room Air 06/14/17 20:00 Room Air 06/14/17 16:00 95 Room Air 06/14/17 16:00 36.8 86 18 133/71 (91) 95 Room Air Lab Results: Results Past 24 Hours Test 06/15/17 05:57 Range/Units Sodium Level 135 136-145 mmol/L Potassium Level 3.9 3.5-5.1 mmol/L Chloride Level 101 98-107 mmol/L Carbon Dioxide Level 28 21-32 mmol/L Anion Gap 6.0 3-11 mmol/L Blood Urea Nitrogen 17 7-18 mg/dl Creatinine 1.07 0.60-1.40 mg/dl Est Creatinine Clear Calc Drug Dose 52.4 ml/min Estimated GFR () 75.6 Estimated GFR (Non- 65.2 BUN/Creatinine Ratio 15.9 10-20 Random Glucose 94 70-99 mg/dl Calcium Level 8.1 8.5-10.1 mg/dl
[2017-06-15] MEDS: ARTIFICIAL TEARS OP OINT 3.5 GM TUBE OP SCH (20:51)
[2017-06-15] MEDS: ENOXAPARIN 40 MG/0.4 ML SYR SC SCH (20:52)
[2017-06-15] MEDS: ASPIRIN 81 MG ECTAB PO SCH (20:52)
[2017-06-16] VITALS (9 sets, daily range): BP systolic 104–113; BP diastolic 51–72; PULSE 77–90; TEMP 36.4–36.5; O2SAT 93–98
[2017-06-16 06:47] LABS: CALCIUM 8.4 mg/dl (8.5-10.1); CREATININE 0.92 mg/dl (0.60-1.40); POTASSIUM 4.4 mmol/L (3.5-5.1)
[2017-06-16] MEDS: MAGNESIUM OXIDE 400 MG TAB PO SCH (07:41)
[2017-06-16] MEDS: CLOPIDOGREL BISULFATE 75 MG TAB PO SCH (07:42)
[2017-06-16] MEDS: PSYLLIUM 58.6% PWD PACK S\\F PO SCH (07:42)
[2017-06-16] MEDS: PANTOprazole SOD 40 MG TAB PO SCH (07:42)
[2017-06-16] MEDS: ARTIFICIAL TEARS OP SOLN OP SCH ×4 (07:49→21:06)
[2017-06-16] MEDS: LISINOPRIL 5 MG TAB PO SCH (08:10)
--- NOTE | 2017-06-16 16:38 | Cardiology Follow-Up ---
Subjective General Date of Service: Jun 16, 2017. Chief Complaint: follow up exertional SOB, cardiac stents Pt evaluation today including: conversation w/ patient, physical exam History of Present Illness The patient is a 81 year old male seen in follow-up. Patient denies any chest discomfort or shortness of breath. He is enjoying a visit with a friend. Is no longer on telemetry having [facility] where he was a telemetry overflow patient. Blood pressure is much better controlled on current dose of lisinopril. Allergies Coded Allergies: Atorvastatin (Verified Allergy, Intermediate, RASH, 06/11/17) PER CAT - PT HAS TOLERATED CRESTOR BEFORE Bacitracin (Verified Allergy, Intermediate, RASH, 06/11/17) Metoprolol (Verified Allergy, Unknown, Rash., 06/11/17) Rosuvastatin (Verified Allergy, Unknown, Rash., 06/11/17) Social History Smoking Status: Never Smoker Hx Tobacco Use In Past Year?: No Hx Alcohol Use - Type And Amou: No Hx Substance Use - Type And Am: No Problem List Medical Problems: (1) Facial paresthesia Status: Acute (2) Irritation of eye Status: Acute (3) Right facial numbness Status: Acute Physical Exam Vital Signs Last Vital Signs Documentation Date Time Temp Pulse Resp B/P (MAP) Pulse Ox O2 Delivery O2 Flow Rate FiO2 06/16/17 15:38 36.4 77 20 113/72 (86) 93 06/16/17 07:30 Room Air Physical Exam Constitutional: General Apperance: well-nourished Level of Distress: NAD Ambulation: limited ambulation ENMT: normal ENT inspection Lungs: Auscultation: breath sounds normal, no wheezing, no rales/crackles, no rhonchi Cardiovascular: Heart Auscultation: RRR, normal S1, normal S2, no murmurs, no rubs, no gallops Abdomen: Inspection & Palpation: soft, non-distended, no tenderness, guarding & rebound Musculoskeletal: normal Extremities: no cyanosis, no edema, no clubbing, no ulcers, pertinent finding ( Right radial pulse palpable. No hematoma or ecchymosis.) Neurologic: Gait & Station: pertinent finding (No focal deficit ) Cranial Nerves: grossly intact Assessment and Plan Assessment and Plan Impression: 81 year old male 1. NGUYEN, unstable angina equivalent s/p PCI of mid LAD and ostium of 1st diagonal with 2 drug-eluting stents - 2.75 x 28 Xience CHI overlapping the distal aspect of prior stent - 2.25 x 18 Xience CHI placed to ostium of 1st diagonal 2. HTN, improved on lisinopril 5 mg 3. Debilitation 4. facial paresthesias, no muscle weakness Plan: EKG this morning revealed stable findings. Continue long-term dual antiplatelet therapy. He is intolerant of beta-radha , and statin. Tolerating lisinopril this admission. Patient is being considered for inpatient rehabilitation at [facility] which I think he would benefit from. Patient stable from a cardiac perspective. Dr. Mcclure is ready for the weekend. Please call him with questions or concerns. Laboratory Results Last 24 Hours Test 06/16/17 06:02 06/16/17 14:27 Sodium Level 134 mmol/L Potassium Level 4.4 mmol/L Chloride Level 100 mmol/L Carbon Dioxide Level 29 mmol/L Anion Gap 5.0 mmol/L Blood Urea Nitrogen 12 mg/dl Creatinine 0.92 mg/dl Est Creatinine Clear Calc Drug Dose 61.0 ml/min Estimated GFR () 90.7 Estimated GFR (Non- 78.3 BUN/Creatinine Ratio 13.3 Random Glucose 98 mg/dl Calcium Level 8.4 mg/dl Magnesium Level 2.1 mg/dl Bedside Glucose 93 mg/dl
--- NOTE | 2017-06-16 18:17 | Progress Note ---
Internal Med Progress Note Date of Service: Jun 16, 2017. Provider Documentation: SUBJECTIVE: Seen and examined at bedside Doing much better today Dizziness and weakness resolved Friends at bedside No complaints Denies chest pain, SOB, abd pain OBJECTIVE: Vital Signs-as noted below Physical Exam: General Appearance:Moderately built and nourished, no apparent distress Head: normocephalic, Atraumatic Eyes: normal inspection, EOMI, PERRL Neck: supple, Trachea midline Respiratory/Chest: Normal breath sounds, CTA Cardiovascular: S1, S2, No murmur Abdomen/GI:Soft, Non tender, Bowel sounds present Extremities/Musculoskelatal:normal inspection, 1+ B/L edema Neurologic/Psych:AAOX3, grossly no focal neurological deficits Skin: normal color, warm Lab data as noted below. ASSESSMENT & PLAN: NGUYEN/Unstable Angina equivalent s/p PCI to mid LAD and ostium of 1st diagonal with 2 drug-eluting stents Continue ASA, clopidogrel, lisinopril. H/O intolerance to beta blockers and statins. Appreciate Cardiology Input PT recommends Rehab business and services instructor working on placement Pleural Effusion: Chest x-ray shows small left pleural effusion. Patient has history of prostate cancer as well as colonic polyps. Needs follow-up chest x-ray in 4-6 weeks R Facial Paresthesiae Seen in the ED about 2 weeks ago with paresthesiae right face. No acute findings on CT Head CTA of cervical and intracranial vessels unremarkable. Persistent paresthesiae, no other neurologic symptoms. TSH normal, Lyme negative chronic as per patient Depression Needs follow up with PCP for further recommendations DVT Px: SQ Lovenox Ambulate. Code Status Full Code Disposition: lives alone at home PT/OT Plan to discharge to Rehab facility when accepted Family Medicine follow-up with Dr. Flaherty Vital Signs: Date Time Temp Pulse Resp B/P (MAP) Pulse Ox O2 Delivery O2 Flow Rate FiO2 06/16/17 16:00 93 Room Air 06/16/17 15:38 36.4 77 20 113/72 (86) 93 06/16/17 11:39 36.4 84 21 95 06/16/17 08:00 84 21 06/16/17 07:30 95 Room Air 06/16/17 07:29 36.4 79 15 104/51 (68) 95 Room Air 06/16/17 07:00 90 20 06/16/17 04:36 36.5 86 25 111/63 (79) 96 06/16/17 04:00 84 19 06/16/17 04:00 98 Room Air 06/15/17 23:59 98 Room Air 06/15/17 23:52 36.5 90 20 121/65 (83) 96 Room Air 06/15/17 20:00 98 Room Air 06/15/17 19:29 36.5 77 24 111/57 (75) 98 Room Air Lab Results: Results Past 24 Hours Test 06/16/17 06:02 06/16/17 14:27 Range/Units Sodium Level 134 136-145 mmol/L Potassium Level 4.4 3.5-5.1 mmol/L Chloride Level 100 98-107 mmol/L Carbon Dioxide Level 29 21-32 mmol/L Anion Gap 5.0 3-11 mmol/L Blood Urea Nitrogen 12 7-18 mg/dl Creatinine 0.92 0.60-1.40 mg/dl Est Creatinine Clear Calc Drug Dose 61.0 ml/min Estimated GFR () 90.7 Estimated GFR (Non- 78.3 BUN/Creatinine Ratio 13.3 10-20 Random Glucose 98 70-99 mg/dl Calcium Level 8.4 8.5-10.1 mg/dl Magnesium Level 2.1 1.8-2.4 mg/dl Bedside Glucose 93 70-99 mg/dl
[2017-06-16] MEDS: ENOXAPARIN 40 MG/0.4 ML SYR SC SCH (21:04)
[2017-06-16] MEDS: ASPIRIN 81 MG ECTAB PO SCH (21:06)
[2017-06-16] MEDS: ARTIFICIAL TEARS OP OINT 3.5 GM TUBE OP SCH (21:07)
[2017-06-17 00:38] VITALS: BP 123/73; PULSE 80; TEMP 36.4; O2SAT 100
[2017-06-17 07:33] VITALS: BP 125/78; PULSE 74; TEMP 36.7; O2SAT 99
[2017-06-17] MEDS: ARTIFICIAL TEARS OP SOLN OP SCH ×4 (07:46→20:33)
[2017-06-17] MEDS: MAGNESIUM OXIDE 400 MG TAB PO SCH (07:48)
[2017-06-17] MEDS: CLOPIDOGREL BISULFATE 75 MG TAB PO SCH (07:48)
[2017-06-17] MEDS: PANTOprazole SOD 40 MG TAB PO SCH (07:48)
[2017-06-17] MEDS: LISINOPRIL 5 MG TAB PO SCH (07:49)
[2017-06-17] MEDS: PSYLLIUM 58.6% PWD PACK S\\F PO SCH (07:50)
[2017-06-17 07:53] LABS: HEMOGLOBIN 13.1 g/dL (14.0-18.0); MEAN CELL VOLUME 87.2 fL (80-100); MEAN CORPUSCULAR HGB CONC 34.5 g/dl (32-36); MEAN PLATELET VOLUME 9.4 fL (7.4-10.4); PLATELET COUNT 204 K/uL (130-400); RED CELL DISTRIBUTION WIDTH CV 12.9 % (11.5-14.5); RED CELL DISTRIBUTION WIDTH SD 41.3 fL (36.4-46.3)
[2017-06-17 08:13] LABS: CALCIUM 8.6 mg/dl (8.5-10.1); CREATININE 0.97 mg/dl (0.60-1.40); POTASSIUM 4.3 mmol/L (3.5-5.1)
[2017-06-17 15:27] VITALS: BP 113/69; PULSE 73; TEMP 36.8; O2SAT 97
--- NOTE | 2017-06-17 16:25 | Progress Note ---
Internal Med Progress Note Date of Service: Jun 17, 2017. Provider Documentation: SUBJECTIVE: Seen and examined at bedside Reports generalized weakness today No other complaints Denies chest pain, SOB, abd pain Was denied by [facility] for rehab OBJECTIVE: Vital Signs-as noted below Physical Exam: General Appearance:Moderately built and nourished, no apparent distress Head: normocephalic, Atraumatic Eyes: normal inspection, EOMI, PERRL Neck: supple, Trachea midline Respiratory/Chest: Normal breath sounds, CTA Cardiovascular: S1, S2, No murmur Abdomen/GI:Soft, Non tender, Bowel sounds present Extremities/Musculoskelatal:normal inspection, 1+ B/L edema Neurologic/Psych:AAOX3, grossly no focal neurological deficits Skin: normal color, warm Lab data as noted below. ASSESSMENT & PLAN: NGUYEN/Unstable Angina equivalent s/p PCI to mid LAD and ostium of 1st diagonal with 2 drug-eluting stents Continue ASA, clopidogrel, lisinopril. H/O intolerance to beta blockers and statins. Appreciate Cardiology Input PT recommends Rehab Denied by [facility] for placement Continue PT/OT Plan to discharge home with Home PT tomorrow if stable Pleural Effusion: Chest x-ray shows small left pleural effusion. Patient has history of prostate cancer as well as colonic polyps. Needs follow-up chest x-ray in 4-6 weeks R Facial Paresthesiae Seen in the ED about 2 weeks ago with paresthesiae right face. No acute findings on CT Head CTA of cervical and intracranial vessels unremarkable. Persistent paresthesiae, no other neurologic symptoms. TSH normal, Lyme negative chronic as per patient Depression Needs follow up with PCP for further recommendations DVT Px: SQ Lovenox Ambulate. Code Status Full Code Disposition: lives alone at home PT/OT Denied for Rehab placement Family Medicine follow-up with Dr. Flaherty Plan to discharge Home with Home health tomorrow if stable Vital Signs: Date Time Temp Pulse Resp B/P (MAP) Pulse Ox O2 Delivery O2 Flow Rate FiO2 06/17/17 15:27 36.8 73 20 113/69 (84) 97 06/17/17 08:00 Room Air 06/17/17 07:33 36.7 74 20 125/78 (94) 99 06/17/17 00:38 36.4 80 20 123/73 (90) 100 Room Air 06/17/17 00:00 Room Air Lab Results: Results Past 24 Hours Test 06/17/17 07:32 06/17/17 07:36 Range/Units White Blood Count 6.50 4.8-10.8 K/uL Red Blood Count 4.36 4.7-6.1 M/uL Hemoglobin 13.1 14.0-18.0 g/dL Hematocrit 38.0 42-52 % Mean Corpuscular Volume 87.2 80-100 fL Mean Corpuscular Hemoglobin 30.0 25-34 pg Mean Corpuscular Hemoglobin Concent 34.5 32-36 g/dl RDW Standard Deviation 41.3 36.4-46.3 fL RDW Coefficient of Variation 12.9 11.5-14.5 % Platelet Count 204 130-400 K/uL Mean Platelet Volume 9.4 7.4-10.4 fL Sodium Level 136 136-145 mmol/L Potassium Level 4.3 3.5-5.1 mmol/L Chloride Level 103 98-107 mmol/L Carbon Dioxide Level 27 21-32 mmol/L Anion Gap 7.0 3-11 mmol/L Blood Urea Nitrogen 12 7-18 mg/dl Creatinine 0.97 0.60-1.40 mg/dl Est Creatinine Clear Calc Drug Dose 57.8 ml/min Estimated GFR () 85.1 Estimated GFR (Non- 73.4 BUN/Creatinine Ratio 12.2 10-20 Random Glucose 93 70-99 mg/dl Calcium Level 8.6 8.5-10.1 mg/dl Bedside Glucose 97 70-99 mg/dl
[2017-06-17] MEDS: ARTIFICIAL TEARS OP OINT 3.5 GM TUBE OP SCH (20:33)
[2017-06-17] MEDS: ASPIRIN 81 MG ECTAB PO SCH (20:34)
[2017-06-17] MEDS: ENOXAPARIN 40 MG/0.4 ML SYR SC SCH (20:34)
[2017-06-17 23:05] VITALS: BP 128/70; PULSE 84; TEMP 36.6; O2SAT 96
[2017-06-18 07:41] VITALS: BP 127/74; PULSE 65; TEMP 36.7; O2SAT 97
[2017-06-18] MEDS: MAGNESIUM OXIDE 400 MG TAB PO SCH (07:50)
[2017-06-18] MEDS: ARTIFICIAL TEARS OP SOLN OP SCH ×4 (07:50→20:35)
[2017-06-18] MEDS: CLOPIDOGREL BISULFATE 75 MG TAB PO SCH (07:51)
[2017-06-18] MEDS: PSYLLIUM 58.6% PWD PACK S\\F PO SCH (07:51)
[2017-06-18] MEDS: PANTOprazole SOD 40 MG TAB PO SCH (07:51)
[2017-06-18] MEDS: LISINOPRIL 5 MG TAB PO SCH (07:51)
--- NOTE | 2017-06-18 14:42 | Progress Note ---
Internal Med Progress Note Date of Service: Jun 18, 2017. Provider Documentation: SUBJECTIVE: Seen and examined at bedside States that he does not feel comfortable going home Reports not feeling well earlier today but unable to specify No other complaints Denies chest pain, SOB, abd pain, dizziness Family at bedside OBJECTIVE: Vital Signs-as noted below Physical Exam: General Appearance:Moderately built and nourished, no apparent distress Head: normocephalic, Atraumatic Eyes: normal inspection, EOMI, PERRL Neck: supple, Trachea midline Respiratory/Chest: Normal breath sounds, CTA Cardiovascular: S1, S2, No murmur Abdomen/GI:Soft, Non tender, Bowel sounds present Extremities/Musculoskelatal:normal inspection, 1+ B/L edema Neurologic/Psych:AAOX3, grossly no focal neurological deficits Skin: normal color, warm Lab data as noted below. ASSESSMENT & PLAN: NGUYEN/Unstable Angina equivalent s/p PCI to mid LAD and ostium of 1st diagonal with 2 drug-eluting stents Continue ASA, clopidogrel, lisinopril. H/O intolerance to beta blockers and statins. Appreciate Cardiology Input PT recommends Rehab Denied by [facility] for placement Continue PT/OT Case management consulted continue current management Awaiting for placement Pleural Effusion: Chest x-ray shows small left pleural effusion. Patient has history of prostate cancer as well as colonic polyps. Needs follow-up chest x-ray in 4-6 weeks R Facial Paresthesiae Seen in the ED about 2 weeks ago with paresthesiae right face. No acute findings on CT Head CTA of cervical and intracranial vessels unremarkable. Persistent paresthesiae, no other neurologic symptoms. TSH normal, Lyme negative chronic as per patient Depression Needs follow up with PCP for further recommendations DVT Px: SQ Lovenox Ambulate. Code Status Full Code Disposition: lives alone at home PT/OT [facility] denied for Rehab placement Plan to discharge when placement available Follow up up your PCP Dr. Flaherty on 06/21/17 at 10:00AM Follow up with your Hog Man in 2 weeks as advised. Seek immediate medical attention if your symptoms reoccur or worsen Vital Signs: Date Time Temp Pulse Resp B/P (MAP) Pulse Ox O2 Delivery O2 Flow Rate FiO2 06/18/17 15:00 36.5 75 20 118/71 (87) 98 06/18/17 08:00 Room Air 06/18/17 07:41 36.7 65 18 127/74 (91) 97 06/18/17 00:00 Room Air 06/17/17 23:05 36.6 84 20 128/70 (89) 96 Room Air 06/17/17 20:00 Room Air 06/17/17 16:00 Room Air Lab Results: Results Past 24 Hours Test 06/17/17 20:43 06/18/17 03:24 Range/Units Bedside Glucose 98 119 70-99 mg/dl
[2017-06-18] MEDS ORDERED: LSN5 PO (14:54)
--- NOTE | 2017-06-18 14:56 | Discharge Instructions ---
Discharge Instructions Date of Service Jun 20, 2017. Admission Reason for Admission: Dyspnea On Exertion Discharge Discharge Diagnosis / Problem: CAD, Unstable Angina Discharge Goals Goal(s): Decrease discomfort, Improve function Activity Recommendations Activity Limitations: per Instructions/Follow-up section Lifting Limitations: gradually increase as tolerated Exercise/Sports Limitations: gradually increase as tolerated . Instructions / Follow-Up Instructions / Follow-Up Follow up up your PCP Dr. Flaherty on 06/21/17 at 10:00AM Follow up with your Goat Farmer on 06/23/17 at 1:45pm Get chest x-ray in 4-6 weeks to evaluate for resolution of pleural effusion Follow up with your Neurologist as advised if you continue to have dizziness and facial numbness Seek immediate medical attention if your symptoms reoccur or worsen Current Hospital Diet Patient's current hospital diet: AHA Diet (Heart Healthy) Discharge Diet Recommended Diet: AHA Diet (Heart Healthy) Pending Studies Studies pending at discharge: no Laboratory Results Lipid Panel Test 06/12/17 05:44 Range/Units Triglycerides Level 93 0-150 mg/dl Cholesterol Level 181 0-200 mg/dl HDL Cholesterol 38 mg/dl Cholesterol/HDL Ratio 4.8 LDL Cholesterol, Calculated 124 mg/dl Medical Emergencies . Who to Call and When: Medical Emergencies: If at any time you feel your situation is an emergency, please call 911 immediately. . Non-Emergent Contact Non-Emergency issues call your: Primary Care Provider, Goat Farmer Call Non-Emergent contact if: you have a fever, your pain is not controlled, your pain is worsening, your pain is unusual for you, your pain is concerning you, you have any medication questions Seek immediate medical attention if your symptoms reoccur or worsen . . "Provider Documentation" section prepared by Madhav Nieto. .
--- NOTE | 2017-06-18 14:57 | Discharge Summary ---
Discharge Summary Date of Service Jun 18, 2017. Discharge Summary Admission Date: Jun 13, 2017 at 11:22 Discharge Disposition: [facility] facility
[2017-06-18 15:00] VITALS: BP 118/71; PULSE 75; TEMP 36.5; O2SAT 98
[2017-06-18] MEDS: ENOXAPARIN 40 MG/0.4 ML SYR SC SCH (20:34)
[2017-06-18] MEDS: ASPIRIN 81 MG ECTAB PO SCH (20:35)
[2017-06-18] MEDS: ARTIFICIAL TEARS OP OINT 3.5 GM TUBE OP SCH (20:35)
[2017-06-19 00:11] VITALS: BP 130/76; PULSE 84; TEMP 36.6; O2SAT 96
[2017-06-19 07:35] VITALS: BP 131/78; PULSE 80; TEMP 36.4; O2SAT 97
[2017-06-19] MEDS: MAGNESIUM OXIDE 400 MG TAB PO SCH (08:22)
[2017-06-19] MEDS: ARTIFICIAL TEARS OP SOLN OP SCH ×4 (08:22→20:45)
[2017-06-19] MEDS: PSYLLIUM 58.6% PWD PACK S\\F PO SCH (08:22)
[2017-06-19] MEDS: PANTOprazole SOD 40 MG TAB PO SCH (08:22)
[2017-06-19] MEDS: CLOPIDOGREL BISULFATE 75 MG TAB PO SCH (08:22)
[2017-06-19] MEDS: LISINOPRIL 5 MG TAB PO SCH (08:22)
--- NOTE | 2017-06-19 15:54 | Progress Note ---
Internal Med Progress Note Date of Service: Jun 19, 2017. Provider Documentation: SUBJECTIVE: Seen and examined at bedside Reports having dizziness earlier today which resolved No other complaints Denies chest pain, SOB, abd pain Awaiting for placement OBJECTIVE: Vital Signs-as noted below Physical Exam: General Appearance:Moderately built and nourished, no apparent distress Head: normocephalic, Atraumatic Eyes: normal inspection, EOMI, PERRL Neck: supple, Trachea midline Respiratory/Chest: Normal breath sounds, CTA Cardiovascular: S1, S2, No murmur Abdomen/GI:Soft, Non tender, Bowel sounds present Extremities/Musculoskelatal:normal inspection, 1+ B/L edema Neurologic/Psych:AAOX3, grossly no focal neurological deficits Skin: normal color, warm Lab data as noted below. ASSESSMENT & PLAN: NGUYEN/Unstable Angina equivalent s/p PCI to mid LAD and ostium of 1st diagonal with 2 drug-eluting stents Continue ASA, clopidogrel, lisinopril H/O intolerance to beta blockers and statins Appreciate Cardiology Input PT recommends Rehab Denied by [facility] for placement Continue PT/OT Case management following Awaiting for placement, plan to DC once approved continue current meds Pleural Effusion: Chest x-ray shows small left pleural effusion. Patient has history of prostate cancer as well as colonic polyps. Needs follow-up chest x-ray in 4-6 weeks R Facial Paresthesiae Seen in the ED about 2 weeks ago with paresthesiae right face. No acute findings on CT Head CTA of cervical and intracranial vessels unremarkable. Persistent paresthesiae, no other neurologic symptoms. TSH normal, Lyme negative chronic as per patient Depression Needs follow up with PCP for further recommendations DVT Px: SQ Lovenox Ambulate. Code Status Full Code Disposition: lives alone at home PT/OT [facility] denied for Rehab placement Awaiting for placement foster care social worker consulted Follow up up your PCP Dr. Flaherty on 06/21/17 at 10:00AM Follow up with your Med Surg Nurse in 2 weeks as advised. Vital Signs: Date Time Temp Pulse Resp B/P (MAP) Pulse Ox O2 Delivery O2 Flow Rate FiO2 06/19/17 07:44 Room Air 06/19/17 07:35 36.4 80 18 131/78 (95) 97 Room Air 06/19/17 00:11 36.6 84 18 130/76 (94) 96 Room Air 06/19/17 00:00 Room Air 06/18/17 20:00 Room Air 06/18/17 16:00 Room Air
[2017-06-19 15:59] VITALS: BP 122/80; PULSE 82; TEMP 36.6; O2SAT 95
[2017-06-19] MEDS: ASPIRIN 81 MG ECTAB PO SCH (20:44)
[2017-06-19] MEDS: ARTIFICIAL TEARS OP OINT 3.5 GM TUBE OP SCH (20:45)
[2017-06-19] MEDS: ENOXAPARIN 40 MG/0.4 ML SYR SC SCH (20:46)
[2017-06-20 00:45] VITALS: BP 94/55; PULSE 72; TEMP 36.8; O2SAT 97
[2017-06-20 07:23] LABS: HEMATOCRIT 36.7 % (42-52); HEMOGLOBIN 12.6 g/dL (14.0-18.0); MEAN CORPUSCULAR HEMOGLOBIN 30.2 pg (25-34); MEAN CORPUSCULAR HGB CONC 34.3 g/dl (32-36); MEAN PLATELET VOLUME 8.8 fL (7.4-10.4); PLATELET COUNT 214 K/uL (130-400); RED CELL DISTRIBUTION WIDTH CV 13.2 % (11.5-14.5); RED CELL DISTRIBUTION WIDTH SD 42.2 fL (36.4-46.3); WHITE BLOOD COUNT 6.33 K/uL (4.8-10.8)
[2017-06-20 07:39] VITALS: BP 112/68; PULSE 76; TEMP 36.7; O2SAT 95
[2017-06-20 07:48] LABS: CALCIUM 8.5 mg/dl (8.5-10.1); CREATININE 1.07 mg/dl (0.60-1.40); POTASSIUM 4.4 mmol/L (3.5-5.1)
[2017-06-20] MEDS: MAGNESIUM OXIDE 400 MG TAB PO SCH (08:05)
[2017-06-20] MEDS: PANTOprazole SOD 40 MG TAB PO SCH (08:05)
[2017-06-20] MEDS: ARTIFICIAL TEARS OP SOLN OP SCH ×2 (08:05→11:17)
[2017-06-20] MEDS: PSYLLIUM 58.6% PWD PACK S\\F PO SCH (08:05)
[2017-06-20] MEDS: CLOPIDOGREL BISULFATE 75 MG TAB PO SCH (08:05)
[2017-06-20] MEDS: LISINOPRIL 5 MG TAB PO SCH (08:05)
--- NOTE | 2017-06-20 10:13 | Progress Note ---
Internal Med Progress Note Date of Service: Jun 20, 2017. Provider Documentation: SUBJECTIVE: Seen and examined at bedside No new complaints Feels well Denies chest pain, SOB, abd pain Accepted at [facility], Plan to be discharged to SNF today OBJECTIVE: Vital Signs-as noted below Physical Exam: General Appearance:Moderately built and nourished, no apparent distress Head: normocephalic, Atraumatic Eyes: normal inspection, EOMI, PERRL Neck: supple, Trachea midline Respiratory/Chest: Normal breath sounds, CTA Cardiovascular: S1, S2, No murmur Abdomen/GI:Soft, Non tender, Bowel sounds present Extremities/Musculoskelatal:normal inspection, 1+ B/L edema Neurologic/Psych:AAOX3, grossly no focal neurological deficits Skin: normal color, warm Lab data as noted below. ASSESSMENT & PLAN: NGUYEN/Unstable Angina equivalent s/p PCI to mid LAD and ostium of 1st diagonal with 2 drug-eluting stents Continue ASA, clopidogrel, lisinopril H/O intolerance to beta blockers and statins Appreciate Cardiology Input PT recommends Rehab Denied by [facility] for placement Continue PT/OT Case management following Planned to be discharged to [facility] today Pleural Effusion: Chest x-ray shows small left pleural effusion. Patient has history of prostate cancer as well as colonic polyps. Needs follow-up chest x-ray in 4-6 weeks R Facial Paresthesiae Seen in the ED about 2 weeks ago with paresthesiae right face. No acute findings on CT Head CTA of cervical and intracranial vessels unremarkable. Persistent paresthesiae, no other neurologic symptoms. TSH normal, Lyme negative chronic as per patient Depression Needs follow up with PCP for further recommendations DVT Px: SQ Lovenox Ambulate. Code Status Full Code Disposition: Planned to be discharged to SNF today Follow up up your PCP Dr. Flaherty on 06/21/17 at 10:00AM Follow up with your Construction Project Engineer on 06/23/17 at 1:45pm Get chest x-ray in 4-6 weeks to evaluate for resolution of pleural effusion Follow up with your Neurologist as advised if you continue to have dizziness and facial numbness Seek immediate medical attention if your symptoms reoccur or worsen Vital Signs: Date Time Temp Pulse Resp B/P (MAP) Pulse Ox O2 Delivery O2 Flow Rate FiO2 06/20/17 08:00 Room Air 06/20/17 07:39 36.7 76 20 112/68 (83) 95 Room Air 06/20/17 00:45 36.8 72 20 94/55 (68) 97 Room Air 06/19/17 23:30 Room Air 06/19/17 16:10 Room Air 06/19/17 15:59 36.6 82 18 122/80 (94) 95 Room Air Lab Results: Results Past 24 Hours Test 06/20/17 07:08 Range/Units White Blood Count 6.33 4.8-10.8 K/uL Red Blood Count 4.17 4.7-6.1 M/uL Hemoglobin 12.6 14.0-18.0 g/dL Hematocrit 36.7 42-52 % Mean Corpuscular Volume 88.0 80-100 fL Mean Corpuscular Hemoglobin 30.2 25-34 pg Mean Corpuscular Hemoglobin Concent 34.3 32-36 g/dl RDW Standard Deviation 42.2 36.4-46.3 fL RDW Coefficient of Variation 13.2 11.5-14.5 % Platelet Count 214 130-400 K/uL Mean Platelet Volume 8.8 7.4-10.4 fL Sodium Level 135 136-145 mmol/L Potassium Level 4.4 3.5-5.1 mmol/L Chloride Level 100 98-107 mmol/L Carbon Dioxide Level 29 21-32 mmol/L Anion Gap 5.0 3-11 mmol/L Blood Urea Nitrogen 11 7-18 mg/dl Creatinine 1.07 0.60-1.40 mg/dl Est Creatinine Clear Calc Drug Dose 52.4 ml/min Estimated GFR () 75.6 Estimated GFR (Non- 65.2 BUN/Creatinine Ratio 9.9 10-20 Random Glucose 93 70-99 mg/dl Calcium Level 8.5 8.5-10.1 mg/dl
--- NOTE | 2017-06-20 10:17 | Discharge Summary ---
Discharge Summary Date of Service Jun 20, 2017. Discharge Summary Admission Date: Jun 13, 2017 at 11:22 Discharge Date: Jun 20, 2017 [facility] Principal Diagnosis: CAD, Unstable Angina Procedures: ECHO: * STRESS STUDY: * Abnormal dobutamine stress echocardiogram. * Normal ECG response to pharmacologic stress. * The left ventricular wall motion is normal at rest with normal stress wall motion noted. * Focal hypokinesis of the right ventricular apex was noted at peak pharmacologic stress and early in the posterior pharmacologic stress recovery interval, and was associated with findings of subjective shortness of breath that reproduced the patient's presenting symptoms. * The dobutamine infusion was discontinued, the patient received 5 mg of IV metoprolol and then 0.4 mg of sublingual nitroglycerin with subsequent resolution of his shortness of breath, and improvement in the transient focal wall motion abnormality limited to the RV apex. * RESTING STUDY: * There is mild concentric left ventricular hypertrophy. * The LV ejection Fraction = 55-60%. * There is no significant valvular heart disease on the resting study. * Doppler findings do not suggest pulmonary hypertension. Cardiac Catheterization: Summary: 1. 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 Coyne Consult cardiac Rehab Consultations: Cardiology Pending Studies/Follow-Up: Follow up up your PCP Dr. Flaherty on 06/21/17 at 10:00AM Follow up with your Cloth Dyer on 06/23/17 at 1:45pm Get chest x-ray in 4-6 weeks to evaluate for resolution of pleural effusion Follow up with your Neurologist as advised if you continue to have dizziness and facial numbness Seek immediate medical attention if your symptoms reoccur or worsen Medication Reconciliation New Medications: Lisinopril (Lisinopril) 5 Mg Tab 5 MG PO QAM for 30 Days, #30 TAB 1 Refill Continued Medications: Acetaminophen (Tylenol) 500 Mg Tab 500 MG PO DAILY, TAB Artificial Tear Solution (Artificial Tears) 1 Sarah Sarah 1 DROPS OP QID, #15 ML 5 Refills Aspirin (Aspirin) 81 Mg Tab 81 MG PO QPM Cholecalciferol (Vitamin D3) 1,000 Unit Tab 1000 UNITS PO BID Clopidogrel (Plavix) 75 Mg Tab 75 MG PO QAM, TAB Fish Oil ([place]-3) 1 Ea Cap 1 CAP PO BID, CAP Magnesium Oxide (Mg Supplement (Magnesium Oxide) 400 Mg Tab 1 TAB PO QAM Multiple Vitamins W/ Minerals (Centrum Silver Ultra Mens) 1 Tab Tab 1 TAB PO QAM Nitroglycerin (Nitrostat) 0.4 Mg Sub 0.4 MG UT UD PRN for Chest Pain, BTL Pantoprazole (Protonix) 40 Mg Tab 40 MG PO QAM, #30 TAB Psyllium (Goodsense Natural Fiber) 28.3 % Pow 1 DOSE PO UD White Petrolatum-Mineral Oil (Tgt Lubricant Eye Nightti) 1 Oin Oin PRN for dry eye Admission Information HPI (per Admitting provider): 81-year-old male followed by Dr. Flaherty for Family Medicine and Dr. Coyne for Cardiology. History of ischemic heart disease and other problems noted below. Cardiac catheterization performed on 03/05/12 demonstrated a severe mid left circumflex lesion. PCI with drug-eluting stent was successfully performed. Recurrent chest pain in February 2013. Repeat cardiac catheterization demonstrated severe proximal LAD lesion and a drug-eluting stent was placed. The previously placed left circumflex stent was patent. Patient was seen in the ED on 05/20/17 with right facial paresthesiae. No other focal neurologic symptoms. CT of head showed small vessel ischemic changes. CTA of cervical and intracranial vessels did not show any significant stenoses. Over the past week, patient has noted increasing dyspnea on exertion. Feels short of breath walking from room to room in his home or after climbing a flight of stairs. No associated chest pain or chest pressure. Intermittent palpitations, not necessarily associated with activity. No dependent edema. No fever. Minimal nonproductive cough. . Physical Exam (per Admitting): CONSTITUTIONAL vital signs as noted above adult male, well-developed, well-nourished, no acute distress EYES conjunctivae clear; lids normal pupils equal and reactive to light EARS, NOSE, MOUTH AND THROAT external inspection of ears and nose unremarkable hearing grossly intact to spoken voice oropharynx clear NECK no masses; trachea midline thyroid normal RESPIRATORY normal respiratory effort; no respiratory distress clear to percussion bibasilar fine rales, R > L CARDIOVASCULAR regular rate and rhythm no murmur, gallop, rub appreciated carotid arteries 2/2 abdominal aorta not palpable DP pulses diminished; PT pulses intact capillary refill toes < 2 seconds no pretibial edema GASTROINTESTINAL normal bowel sounds, soft, nontender; no palpable masses no hepatomegaly; no splenomegaly large incisional hernia, easily reduced LYMPHATIC no cervical adenopathy MUSCULOSKELETAL no cyanosis; no digital clubbing no calf tenderness motor strength extremities grossly intact SKIN resolving rash right medial thigh warm and dry NEUROLOGIC PERRL, EOMI, no facial palsy, no dysarthria, tongue midline patellar DTR's 1/2 PSYCHIATRIC oriented to person, place, time mood and affect appropriate . Hospital Course NGUYEN/Unstable Angina equivalent s/p PCI to mid LAD and ostium of 1st diagonal with 2 drug-eluting stents Continue ASA, clopidogrel, lisinopril H/O intolerance to beta blockers and statins Appreciate Cardiology Input PT recommends Rehab Denied by [facility] for placement Continue PT/OT Case management following Planned to be discharged to [facility] Pleural Effusion: Chest x-ray shows small left pleural effusion. Patient has history of prostate cancer as well as colonic polyps. Needs follow-up chest x-ray in 4-6 weeks R Facial Paresthesiae Seen in the ED about 2 weeks ago with paresthesiae right face. No acute findings on CT Head CTA of cervical and intracranial vessels unremarkable. Persistent paresthesiae, no other neurologic symptoms. TSH normal, Lyme negative chronic as per patient Depression Needs follow up with PCP for further recommendations DVT Px: SQ Lovenox Ambulate. Code Status Full Code Disposition: Planned to be discharged to SNF today Follow up up your PCP Dr. Flaherty on 06/21/17 at 10:00AM Follow up with your Cloth Dyer on 06/23/17 at 1:45pm Get chest x-ray in 4-6 weeks to evaluate for resolution of pleural effusion Follow up with your Neurologist as advised if you continue to have dizziness and facial numbness Seek immediate medical attention if your symptoms reoccur or worsen Total time spent on discharge = 36 minutes This includes examination of the patient, discharge planning, medication reconciliation, and communication with other providers. Discharge Instructions Discharge Instructions Date of Service Jun 20, 2017. Admission Reason for Admission: Dyspnea On Exertion Discharge Discharge Diagnosis / Problem: CAD, Unstable Angina Discharge Goals Goal(s): Decrease discomfort, Improve function Activity Recommendations Activity Limitations: per Instructions/Follow-up section Lifting Limitations: gradually increase as tolerated Exercise/Sports Limitations: gradually increase as tolerated . Instructions / Follow-Up Instructions / Follow-Up Follow up up your PCP Dr. Flaherty on 06/21/17 at 10:00AM Follow up with your Cloth Dyer on 06/23/17 at 1:45pm Get chest x-ray in 4-6 weeks to evaluate for resolution of pleural effusion Follow up with your Neurologist as advised if you continue to have dizziness and facial numbness Seek immediate medical attention if your symptoms reoccur or worsen Current Hospital Diet Patient's current hospital diet: AHA Diet (Heart Healthy) Discharge Diet Recommended Diet: AHA Diet (Heart Healthy) Pending Studies Studies pending at discharge: no Laboratory Results Lipid Panel Test 06/12/17 05:44 Range/Units Triglycerides Level 93 0-150 mg/dl Cholesterol Level 181 0-200 mg/dl HDL Cholesterol 38 mg/dl Cholesterol/HDL Ratio 4.8 LDL Cholesterol, Calculated 124 mg/dl Medical Emergencies . Who to Call and When: Medical Emergencies: If at any time you feel your situation is an emergency, please call 911 immediately. . Non-Emergent Contact Non-Emergency issues call your: Primary Care Provider, Cloth Dyer Call Non-Emergent contact if: you have a fever, your pain is not controlled, your pain is worsening, your pain is unusual for you, your pain is concerning you, you have any medication questions Seek immediate medical attention if your symptoms reoccur or worsen . . "Provider Documentation" section prepared by Madhav Nieto. . <Electronically signed by Madhav Nieto MD> Signed: 06/20/17 1014 Signed: The status of this report is Signed * If report status is Draft, the document has not been finalized by the responsible provider.
[2017-06-20 10:35] VITALS: BP 112/68; PULSE 76; TEMP 36.7; O2SAT 95
== END 2017-06-20 13:45 | DRG 247 ==
LOC: C.EDB 12:35 → C.MED 14:22 → ENRESERV 15:06 → OBSVTOIN 06-13 11:22 → ENRESERV 06-13 11:46 → C.MSICU 06-13 13:04 → ENRESERV 06-16 10:23 → C.MS4W 06-16 11:48
PROVIDERS: ADMIT Hospitalist; ATTEND Internal Medicine
PROC: 4A023N7 Measurement of Cardiac Sampling and Pressure, Left Heart, Percutaneous Approach (ICD-10-PCS; 2017-06-13)
PROC: B211YZZ Fluoroscopy of Multiple Coronary Arteries using Other Contrast (ICD-10-PCS; 2017-06-13)
PROC: 027035Z Dilation of Coronary Artery, One Artery with Two Drug-eluting Intraluminal Devices, Percutaneous Approach (ICD-10-PCS; principal; 2017-06-13 09:31)
DX: I25.110 Atherosclerotic heart disease of native coronary artery with unstable angina pectoris (principal); J90 Pleural effusion, not elsewhere classified; R20.2 Paresthesia of skin; R35.8 Other polyuria; E78.5 Hyperlipidemia, unspecified; F32.9 Major depressive disorder, single episode, unspecified; I11.9 Hypertensive heart disease without heart failure; K21.9 Gastro-esophageal reflux disease without esophagitis; G47.33 Obstructive sleep apnea (adult) (pediatric); Z51.81 Encounter for therapeutic drug level monitoring; Z79.899 Other long term (current) drug therapy; Z79.82 Long term (current) use of aspirin; Z79.02 Long term (current) use of antithrombotics/antiplatelets; Z95.5 Presence of coronary angioplasty implant and graft; Z85.46 Personal history of malignant neoplasm of prostate; Z86.010 Personal history of colon polyps; Z88.8 Allergy status to other drugs, medicaments and biological substances; Z82.49 Family history of ischemic heart disease and other diseases of the circulatory system; Z83.3 Family history of diabetes mellitus; Z82.3 Family history of stroke; Z80.7 Family history of other malignant neoplasms of lymphoid, hematopoietic and related tissues; Z88.3 Allergy status to other anti-infective agents

== ENCOUNTER → 2017-07-20 | Outpatient (CLI) | payer OTHER ==
[~2017-07-20] MED LIST changes: -ERYOPO1 OPR; +LSN5 PO
--- NOTE | 2017-07-21 06:25 | SPLIT NIGHT TECHNICIAN REPORT ---
[facility] Split Night Polysomnogram - Solar Energy Systems Designer Report Study date: 07/20/2017 Referring Physician: Dr. Jaz Cross M.D. Name: ALTHEA TAVARES Solar Energy Systems Designer: [facility] Date of : 1935 Height: 81 years, Height 5' 7" Sex: Male Weight: 173 lbs Age: 81 Neck Circum: 14.5 inches BMI: Medications: 27.09 ACETAMINOPHEN 325 MG, ASPIRIN 81 MG, PLAVIX 75 MG, FLUTICASONE 50 MCG/ACT, LIQUITEARS 1.4% OP SOLN, LISINOPRIL 5 MG, MAGNESIUM OXIDE 241.3 MG, MELATONIN 1 MG, METAMUCIL, NITROGLYCERIN 0.4 MG, PANTOPRAZOLE 40 MG, MENS DAILY MULTI VIT, TGT EYE LUBRICANT, VIT D 1000 UNIT Patient History 81 yr-old male here for a baseline/modified split study (CPAP to be introduced if AHI exceeds 5). He has a history of snoring, waking up gasping for air, witnessed apnea, and daytime sleepiness. His [place] scale is 15. THe test was started on room air. ETCO2 testing is included in this study. Room 7 Parameters Monitored NPSG: E1-M2, E2-M1, Fp1-M2, Fp2-M1, F3-M2, F4-M2, F4-M1, C3-M2, C4-M2, C4-M1, O1-M2, O2-M2, O2-M1, T3-M2, T4-M1, P3-M2, P4-M1, CHIN1, CHIN2, HR, EKG, Legs, PFLOW, SNOR, FLOW, CFLOW, Tidal Volume, THOR, ABDO, SpO2, PLTH, CPRESS, ETCO2 Wave, ETCO2, pH SLEEP SUMMARY DATA DIAGNOSTIC TREATMENT Lights Out: 10:11:44 PM 1:52:44 AM Lights On: 1:24:44 AM 5:56:44 AM Total Recording Time (TRT): 193.0 min. 244.0 min. Total Sleep Time (TST): 131.0 min. 159.0 min. NREM Time: 121.0 min. 140.0 min. REM Time: 10.0 min. 19.0 min. Sleep Period Time (SPT): 188.0 min. 209.5 min. Sleep Efficiency (SE): 68 % 65 % Sleep Latency: 5.0 min. 32.0 min. Arousal Index: 16.5 12.5 PAP Treatment Levels: 4, 8/4, 9/5, 10/6, 11/6 * Optimal Pressure(s) SLEEP STAGING DATA DIAGNOSTIC TREATMENT Duration (min) TST % Duration (min) TST % Stage Wake: 62.0 min. -- 85.0 min. -- WASO: 57.0 min. -- 50.5 min. -- NREM: 121.0 min. 92 % 140.0 min. 88 % Stage N1: 18.5 min. 14 % 34.0 min. 21 % Stage N2: 74.0 min. 56 % 67.5 min. 42 % Stage N3: 28.5 min. 22 % 38.5 min. 24 % REM: 10.0 min. 8 % 19.0 min. 12 % POSITIONAL DATA Event Count Index Event Count Index Supine: 23 34 38 38.7 Supine NREM: 23 34.0 38 39.7 Supine REM: N/A N/A 0 0 Non-Supine: 6 2.6 12 7.1 Non-Supine NREM: 3 0.7 11 7.9 Non-Supine REM: 3 18.0 1 3.4 AROUSAL SUMMARY DATA: Event Count Index Event Count Index Apnea Arousals: 4 2.3 19 15.1 Hypopnea Arousals: 7 3.2 5 1.9 Snore Arousals: 6 2.7 3 1.1 PLM Arousals: 0 0.0 1 0.4 Non-Specific Arousals: 12 5.5 1 0.4 Total Arousals: 36 16.5 33 12.5 MYOCLONUS (PLM) Event Count Index Event Count Index PLM: 2 0.9 1 0.4 PLM AROUSAL: 0 0.0 1 0.4 PLM W/O AROUSAL 2 0.9 0 0.0 PLM W/RESP EVENT 1 0.0 0 0.0 MYOCLONUS (PLM) Event Count Index Event Count Index LM: 6 8.2 25 9.4 LM AROUSAL: 6 2.7 10 3.8 LM W/O AROUSAL LM W/RESP EVENT LM NON SPECIFIC 7 3.2 6 2.3 HEART RATE DATA DIAGNOSTIC TREATMENT Sleep (bpm): 69 70 REM (bpm): 93 94 NREM (bpm): 93 94 Tachycardia Count: 0 0 Tachycardia Duration: 0.00 0 Bradycardia Count: 0 0 Bradycardia Duration: 0.00 0 DIAGNOSTIC PORTION TREATMENT PORTION RESPIRATORY DATA Event Count Index Event Count Index AHI: -- 11.9 -- 18.5 RDI: -- 13.3 -- 19 Obstructive Apnea: 4 1.8 7 2.6 Central Apnea: 0 0.0 32 12.1 Mixed Apnea: 1 0.5 1 0.4 Hypopnea: 21 9.6 9 3.4 RERA: 3 1.4 1 0.4 Total Apneas: 5 2.3 40 15.1 RESPIRATORY DATA REM NREM SLEEP REM NREM SLEEP Supine Position: Obstructive Apneas: N/A 4 4 0 7 7 Central Apneas: N/A 0 0 0 21 21 Mixed Apneas: N/A 1 1 0 1 1 Hypopneas: N/A 17 17 0 8 8 RERA N/A 1 1 0 1 1 Total Supine Events: N/A 23 23 0 38 38 Supine AHI: N/A 34.0 34 0 39.7 38.7 Supine RDI: N/A 35.5 35.5 0.0 40.8 39.7 REM NREM SLEEP REM NREM SLEEP Non-Supine Position: Obstructive Apneas: 0 0 0 0 0 0 Central Apneas: 0 0 0 1 10 11 Mixed Apneas: 0 0 0 0 0 0 Hypopneas: 3 1 4 0 1 1 RERA 0 2 2 0 0 0 Total Supine Events: 3 3 6 1 11 12 Supine AHI: 18.0 0.7 2.6 3.4 7.9 7.1 Supine RDI: 18.0 2.2 3.9 3.4 7.9 7.1 OXYGEN DESTAURATION DATA: Event Count Index Event Count Index REM Desaturations: 3 18.0 0 0.0 NREM Desaturations: 21 10.4 22 9.4 SNORE DATA DIAGNOSTIC TREATMENT Snore Time: 1.6 2:24:44 AM Snore TST%: 1 2 Snore Arousal Count: 6 3 Snore Arousal Index: 2.7 1.1 Desaturation Event Summary: Minimum %SpO2 Event Count Mean/Min/Max Duration(sec.) Desaturation Index % Time In Bed > 90 58 35.6 / 12.8 / 58.5 8.2 98.3 86 - 90 0 N/A 0.0 1.6 81 - 85 0 N/A 0.0 0.0 76 - 80 0 N/A 0.0 0.0 71 - 75 0 N/A 0.0 0.0 66 - 70 0 N/A 0.0 0.0 61 - 65 0 N/A 0.0 0.0 56 - 60 0 N/A 0.0 0.0 51 - 55 0 N/A 0.0 0.0 < 50 0 N/A 0.0 0.0 OXYGEN SATURATION DATA DIAGNOSTIC TREATMENT SpO2 Mean Sleep: 93 % 94 % SpO2 Mean REM: 93 % 94 % SpO2 Mean NREM: 93 % 94 % SpO2 Minimum Sleep: 87 % 89 % SpO2 Minimum REM: 91 % 91 % SpO2 Minimum NREM: 87 % 89 % Time Below 90% (TST): 1.1 0.2 Time Below 88% (TST): 0.1 0.0 Total REM NREM Awake <50% 0.0 min. 0.0 min. 0.0 min. 0.0 min. 51 - 60% 0.0 min. 0.0 min. 0.0 min. 0.0 min. 61 - 70% 0.0 min. 0.0 min. 0.0 min. 0.0 min. 71 - 80% 0.0 min. 0.0 min. 0.0 min. 0.0 min. 81 - 90% 7.3 min. 0.0 min. 4.4 min. 2.9 min. 91 - 100% 423.1 min. 29.0 min. 256.6 min. 137.4 min. Average 94 94 94 94 Minimum SpO2 81 91 87 81 Desaturation Event Index 8.0 6.2 9.9 5.3 # Desat. Events below 89% 5 N/A 5 0 Time(%) with Saturation below 89% 0.2 0.0 0.1 0.1 Time(min.) with Saturation below 89% 1.0 0.0 0.3 0.6 Recording Solar Energy Systems Designer Comments: MR. Tavares slept in the right, left, and supine positions. No cardiac arrhythmia or PLMs noted. No bruxism noted. Snoring was noted and scored as a 2 on a scale of 0 through 5. (0=no snoring, 5=snoring loud enough to be heard through a closed door or down the valdez way) At 1:24 am MR. Tavares met modified Split-Night criteria during the diagnostic portion of this study. CPAP was initiated at +4 CMH2O room air and was switched to BIPAP for sleep onset centrals that were not resolving. PAP initiated at an IPAP of +8 CMH2O and an EPAP of +4 CMH2O up-titrated to a level of: IPAP +11 CMH2O, EPAP +6 CMH20 BiFlex 1, Patient rolled supine at 5:30 and was still having events.. A Medium ResMed Quattro Mirage full face mask was used during titration. MR. Tavares awoke to use the restroom two times during the night. MR. Tavares stated, I am glad the nights over, I did not care for CPAP. The final report will be interpreted and signed by a sleep physician. The completed physician report will then be placed in the patient medical record. Therapy Event: Therapy (cm H20) 0 4 8/4 9/08 10/6 02/06 Total Time at Pressure (min.) 193.0 90.9 41.3 72.9 14.7 24.2 TST at Pressure (min.) 131.0 17.4 39.3 69.9 14.2 18.2 # Periods 1 1 1 1 1 1 Sleep Onset (min.) 5.0 32.0 0.0 0.0 0.0 0.0 REM Onset (min.) 66.0 N/A 19.6 54.9 N/A 16.7 Sleep Efficiency % 67 19 95 95 96 75 Wakefulness (%) 32.1 80.9 4.8 4.1 3.4 24.7 Wakefulness (min.) 62.0 73.5 2.0 3.0 0.5 6.0 NREM 1 (%) 9.6 18.6 13.6 9.6 13.6 10.3 NREM 1 (min.) 18.5 16.9 5.6 7.0 2.0 2.5 NREM 2 (%) 38.3 0.6 44.0 30.7 83.0 58.8 NREM 2 (min.) 74.0 0.5 18.1 22.4 12.2 14.2 NREM 3 (%) 14.8 0.0 0.0 52.8 0.0 0.0 NREM 3 (min.) 28.5 0.0 0.0 38.5 0.0 0.0 REM (%) 5.2 0.0 37.6 2.7 0.0 6.2 REM (min.) 10.0 0.0 15.5 2.0 0.0 1.5 # Arousals 36 8 8 8 6 3 Arousal Index 16.5 27.6 12.2 6.9 25.3 9.9 # Snore 60 8 5 6 1 4 Snore Index 27.5 27.6 7.6 5.2 4.2 13.2 AHI 11.9 65.6 15.3 8.6 29.6 9.9 AHI Supine 34.0 85.0 N/A 46.2 29.6 9.9 AHI Non-Supine 2.6 22.3 15.3 0.0 N/A N/A NREM AHI 11.4 65.6 22.7 8.8 29.6 10.7 REM AHI 18.0 N/A 3.9 0.0 N/A 0.0 RDI 13.3 65.6 15.3 8.6 33.8 9.9 # Obstructive 4 0 0 2 3 2 # Central Ap 0 15 10 4 3 0 # Mixed 1 0 0 0 0 1 # Hypopneas 21 4 0 4 1 0 RERAS 3 0 0 0 1 0 Total Respiratory Events 29 19 10 10 8 3 Time Below SpO2 89.00% (min.) 0.3 0.0 0.0 0.0 0.0 0.0 Mean NREM SpO2 (%) 93 94 94 94 95 94 Mean REM SpO2 (%) 93 N/A 94 95 N/A 93 Mean Sleep SpO2 (%) 93 94 94 94 95 94 Min NREM SpO2 (%) 87 89 90 91 92 90 Min REM SpO2 (%) 91 N/A 92 94 N/A 91 Position Supine (min.) 38.8 12.0 0.0 13.0 14.2 18.2 Position Non-supine (min.) 92.2 5.4 39.3 56.9 0.0 0.0 LM Index Sleep 9.2 27.6 10.7 6.0 8.4 6.6 LM Index NREM 8.9 27.6 7.6 5.3 8.4 3.6 LM Index REM 12.0 N/A 15.5 30.0 N/A 40.0 Mean Heart Rate (bpm) 69 69 69 72 67 66 Min Heart Rate (bpm) 61 64 62 62 62 60
--- NOTE | 2017-08-07 14:07 | Sleep Study ---
Sleep Study Report Date of Service: 07/20/17 Sleep Study Report Patient: Ethan TAVARES Test Date: 07/20/2017 Page 4 [facility] Split Night Polysomnogram Physician Report Name: Ethan TAVARES MR#: [id number] Date of : 1935 Study date: 07/20/2017 Report date: 08/07/2017 Referring Physician: Dr. Jaz Cross M.D. Interpreting Physician: Jaz Cross M.D. Impression: 1-Mild obstructive sleep apnea syndrome. These respiratory events were associated with oxygen desaturations (liya of 87 %). 2-At bilevel setting of 11/6 cmH2O, the apnea-hypopnea index was almost normalized. At this setting, snoring was eliminated and oxygen saturation was maintained above 90 %. 3-Abnormal sleep architecture likely due to respiratory events, PAP therapy and first night effect. Recommendations: Bilevel 11/6 with heated humidity with a medium ResMed Quattro Mirage mask. Clinical Background: Patient is an 82 years old with history of CAD, hyperlipidemia, SONALI unable to tolerate CPAP in the past. Patient came with history of snoring, witnessed apneas, waking up gasping for air and excessive daytime sleepiness. ESS: INITIAL DIAGNOSTIC ANALYSIS: . Sleep Architecture: Minutes TRT Total recording time 193.0 Sleep latency 5.0 SPT Sleep Period Time None WASO Wake time after sleep onset 57.0 TST Total Sleep Time 131.0 R Sleep latency minus wake None Sleep efficiency 68 % TST SPT Stage N1 18.5 14 % 5% Stage N2 74.0 56 % 19% Stage N3 28.5 22 % 7% Stage R 10.0 8 % 3% Arousals: Index Respiratory related 14 4.4 PLM related 2 0 Spontaneous 12 5.5 Total 4 1.8 Movement Events: Index Total PLMs 2 0.9 PLMs associated with arousals 2 0.9 Respiratory Events: Index Central 0 0.0 Obstructive 4 2.6 Mixed N 1 one 0.5 Hypopneas 21 9.6 RERAs 3 1.4 AHI = Apneas + Hypopneas 26 11.9 RDI = Apneas + Hypopneas +RERAs 29 13.3 Oxygenation: Min. Sat. Avg. Sat. Awake None% None% N sleep 87 93 REM 91 93 Overall 87 93 Supplemental O2 was utilized for 0 minutes. Cardiac Events: Min bpm Max bpm Avg bpm Awake 61 96 70 N sleep 61 89 69 REM 61 81 71 Overall 61 96 69 SUBSEQUENT POSITIVE AIRWAY TITRATION POLYSOMNOGRAM: . Sleep Architecture: Minutes TRT Total recording time 244.0 Sleep latency 32.0 SPT Sleep Period Time None WASO Wake time after sleep onset 50.5 TST Total Sleep Time 159.0 R Sleep latency minus wake None Sleep efficiency 65 TST SPT Stage N1 34.0 21 16% Stage N2 67.5 42 32% Stage N3 38.5 24 18% Stage R 19.0 12 9% Arousals: Index Respiratory related 25 9.4 PLM related 1 6.6 Spontaneous 12 5.5 "/> Total 1 0.4 Movement Events: Index Total PLMs 1 0.4 PLMs associated with arousals 1 0.4 Respiratory Events: Index Central 32 12.1 Obstructive 7 2.6 Mixed 1 0.4 Hypopneas 9 3.4 RERAs 1 0.4 AHI = Apneas + Hypopneas 49 18.5/hr RDI = Apneas + Hypopneas +RERAs 50 19 Oxygenation: Min. Sat. Avg. Sat. Awake None% None% N sleep 89 94 REM 91 94 Overall 89 94 Time spent =< 88%: 0 minutes Supplemental O2 was utilized for 0 minutes. CPAP was started via a Cortera Quattro Mirage interface at 4 cm H2O. The pressures were then gradually titrated to 4 cm H2O and switched to bilevel from 8/4 cmH2O to 11/6 cmH2O. Respiratory events, oxygen desaturations and snoring resolved at a bilevel of 11/6 cm H2O. Supine position, Stage R sleep and good sleep efficiency were obtained at the recommended pressure. The final AHI at the recommended therapeutic pressure was 9.9 /hour. Cardiac Events: Min bpm Max bpm Avg bpm Awake 60 101 70 N sleep 61 83 70 REM 60 86 71 Overall 60 86 70 Comments / Artifact / Quality of the Study The polysomnographic recording quality was satisfactory for interpretation. No significant artifacts were found. PARAMETERS: Following the technical and digital specifications of the [employer] (AASM), a split night polysomnogram was performed monitoring EEG , EOG, EMG (chin and leg derivations), oxygen saturation, body position, digital video, respiratory effort and airflow. The sleep Stage and event scoring was based on the AASM Manual for the Scoring of Sleep and Associated Events 2007 edition. Apneas are defined as a drop in the peak thermal sensor excursion by > 90% of baseline for at least 10 seconds. Hypopneas were scored using the 4% oxygen desaturation rule (4A-Medicare) and a decrease in the nasal pressure excursions by > 30% of baseline for at least 10 seconds. Respiratory effort-related arousals (RERAs) are defined as a sequence of breaths lasting at least 10 seconds characterized by increasing respiratory effort or flattening of the nasal pressure waveform leading to an arousal from sleep when the sequence of breaths does not meet criteria for an apnea or hypopnea. Apnea Hypopnea Index (AHI) is defined as the number of apneas and hypopneas occurring in an hour of sleep. Respiratory Disturbance Index (RDI) is defined as the number of apneas, hypopneas, and RERAs occurring in an hour of sleep. Thank you for the courtesy of this referral, Jaz Cross MD Certified Internal/Sleep Medicine
== END | disposition home or self-care (01) ==
LOC: C.NEUR 20:00
PROVIDERS: ATTEND Internal Medicine
DX: G47.33 Obstructive sleep apnea (adult) (pediatric) (principal)

== ENCOUNTER 2019-01-19 22:21 | Inpatient (IN) ==
--- OUTSIDE RECORDS SUMMARY | 2019-01-19 22:24 | External Medical Summary | Continuity of Care Document ---
:1935 Author Name Gage Dean, Provider Address Unavailable Unavailable , Care Team Providers Name Role Phone Jong Dean, 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) Actinic keratosis (702.0) (L57.0) Esophageal reflux (530.81) (K21.9) Allergies and Adverse Reactions bacitracin (Allergy) Medications Clopidogrel Bisulfate 75 MG Oral Tablet Refills: 0 Vitamin D3 50 MCG (1999) Oral Tablet Refills: 0 Fish Oil 1200 MG Oral Capsule Refills: 0 Benadryl 25 MG CAPS Refills: 0 Acetaminophen TABS Refills: 0 TGT Lubricant Eye Nighttime 83-15 % Ophthalmic Ointment Refills: 0 Liquid Tears 1.4 % SOLN Refills: 0 Multi Vitamin Mens Oral Tablet Refills: 0 Nitrostat 0.4 MG Sublingual Tablet Sublingual Refills: 0 Metamucil 28.3 % Oral Powder Refills: 0 Aspirin 81 MG TABS Refills: 0 Protonix 40 MG Oral Tablet Delayed Release Refills: 0 Magnesium Oxide 400 MG Oral Tablet Refills: 0 Procedures Procedures not documented Immunizations Immunizations not documented Social History - Smoking Status Former smoker Plan of Treatment Planned Observations Planned Goals not documented Results No Known Results Results not documented
--- NOTE | 2019-01-19 23:14 | Emergency Department Note ---
Entered by Bruna Jaffe acting as a scribe for Hannah Russ DO History of Present Illness General Chief complaint: Cardiac Assessment Stated complaint: SX WHEN HE GOT HEART STENTS IN, NUMBNESS Time Seen by Provider: 01/19/19 22:52 Source: patient Mode of arrival: ambulatory Limitations: no limitations History of Present Illness Provider complaint: Right face and jaw pain Onset (ago): month(s) Location: face Radiation: other Severity: moderate and similar to prior episodes Pain Consistency: + constant Quality: + burning and + other (Hot) Relieved By: + rest Exacerbated By: + movement Associated symptoms: + shortness of breath Treatments prior to arrival: none This is an 83-year-old male with a history of coronary artery disease status post stents x4 who presents with complaints of ongoing right face and jaw pain. Patient states he has had this discomfort over the last several months but was worse in the course of the last week and particularly worse this evening. Patient describes this discomfort as a burning or "hot" feeling. He states that it is worse with exertion and typically would resolve with rest. He states over the last week he has noticed it takes a longer time to go away with rest, and today never completely abated with rest. No treatment prior to arrival or over the course of the last week for this. Patient states he recognizes the symptoms as similar to prior events which have ultimately been attributed to his heart and required additional PCI and stenting. 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 Coyne, whom he last saw back in July. He states his most previous s tents were performed last year. Patient denies any coming headaches, vision changes, hearing loss, tinnitus, dizziness, or trouble swallowing. Patient states no change in the discomfort with turning his head and neck. No sense of swelling to the face or neck. Patient denies any recent change in medication, no recent trauma or change in activity. Home Medications Home Medications Medication Instructions Recorded Confirmed Type Centrum Silver 1 tab PO QAM 12/24/17 01/20/19 History Lubricant Eye 1 applic OPHTHALMIC (EYE) UD PRN 12/24/17 01/20/19 History acetaminophen [Tylenol Extra 500 mg PO QAM 12/24/17 01/20/19 History Strength] artificial tear([id number]) 1 drp OPHTHALMIC (EYE) QID PRN 12/24/17 01/20/19 History aspirin 81 mg PO HS 12/24/17 01/20/19 History cholecalciferol (vitamin D3) 2,000 unit PO DAILY 12/24/17 01/20/19 History [Vitamin D3] clopidogrel [Plavix] 75 mg PO DAILY 12/24/17 01/20/19 History lisinopril 5 mg PO DAILY 12/24/17 01/20/19 History magnesium oxide 400 mg PO QAM 12/24/17 01/20/19 History omega 9-[id number]-fish oil [Fish Oil] 1,400 mg PO BID 12/24/17 01/20/19 History pantoprazole [Protonix] 40 mg PO QAM 12/24/17 01/20/19 History fluticasone propionate 2 spray INTRANASAL DAILY 12/26/17 01/20/19 History nitroglycerin [Nitrostat] 0.4 mg SUBLINGUAL UD PRN #25 tab 12/26/17 01/20/19 Rx Allergies Allergy/AdvReac Type Severity Reaction Status Date / Time atorvastatin Allergy Intermediate RASH Verified 01/20/19 01:32 bacitracin Allergy Intermediate RASH Verified 01/20/19 01:32 rosuvastatin Allergy Unknown Rash. Verified 01/20/19 01:32 metoprolol AdvReac Unknown "DIDNT Verified 01/20/19 01:32 AGREE WITH ME" Past Med/Surg History Medical History SONALI treated with BiPAP (Chronic) CAD (coronary artery disease) (Chronic) CHI to CX 03/2012; CHI to proximal LAD 02/2013. [facility]I to a bifurcating lesion of the mid LAD and ostium of the first diagonal 06/13/2017. REPEAT CATH 12/26/17 SHOWED PATENT STENTS AND ARTERIES. Vitamin D deficiency (Chronic) PVCs (premature ventricular contractions) (Chronic) Statin intolerance (Chronic) HLD (hyperlipidemia) (Chronic) GERD (gastroesophageal reflux disease) History of prostate cancer 2001 Hypoglycemia PT EDUCATED ON DIET RESTRICTIONS PRIOR TO SURGERY AND USE OF 3 OZ OF APPLE JUICE IN EVENT OF EMERGENCY >2 HOURS PRIOR. Surgical History History of radical prostatectomy (Resolved) Status post partial colectomy (Resolved) "large polyp" S/P inguinal hernia repair (Resolved) S/P coronary artery stent placement (Resolved) H/O cardiac catheterization CHI to CX 03/2012; CHI to proximal LAD 02/2013. CHI to a bifurcating lesion of the mid LAD and ostium of the first diagonal 06/13/2017. REPEAT CATH 12/26/17 SHOWED PATENT STENTS AND ARTERIES. History of appendectomy TAKEN DURING PARTIAL COLECTOMY History of colonoscopy History of tonsillectomy Family History Other Family history non-contributory Social History Preferred Language: Romanian Communication Ability: Effective Inflated Pad Buffer Required: No Beliefs That Will Affect Care: None marital status: Single Current Living Situation: Alone Current Living Situation Comment: pt planning on moving closer to friends in [place] Feels Safe at Home: Yes Safety Concerns: Feels Safe At This Time Smoking Status: Never smoker Tobacco Type: cigarettes ; Cigarettes Per Day: HX OF SOCIAL USE X7 YEARS, QUIT 50+ YEARS AGO ; Second Hand Exposure: No ; Hx Alcohol Use: Yes Hx Substance Use: No Review of Systems See HPI for pertinent positives & negatives. and A total of 10 systems reviewed and were otherwise negative Physical Exam Vital Signs Vital Signs - 24 hr 01/19/19 22:25 01/19/19 23:25 01/19/19 23:28 Temperature 98.1 F Temperature Source Oral Sepsis Recent Fever Within 48 Hours No Sepsis Action Taken by Nursing No Action Required Pulse Rate 87 74 Pulse Rate [Apical] 74 Pulse Rate from SpO2 Sensor 75 Pulse Rhythm Regular Pulse Strength Normal Respiratory Rate 16 14 20 Respiratory Effort / Characteristics Non-Labored Respiratory Depth Normal Respiratory Pattern Regular Blood Pressure 170/83 H 140/78 Blood Pressure [Left Arm] 140/78 Blood Pressure Mean 112 98 Blood Pressure Mean [Left Arm] 98 Blood Pressure Position Sitting Blood Pressure Position [Left Arm] Sitting Pulse Oximetry 96 97 96 Oxygen Delivery Method Room Air Room Air Room Air 01/19/19 23:30 01/20/19 00:00 01/20/19 00:30 Temperature Temperature Source Sepsis Recent Fever Within 48 Hours Sepsis Action Taken by Nursing Pulse Rate 74 76 71 Pulse Rate [Apical] Pulse Rate from SpO2 Sensor 73 76 72 Pulse Rhythm Pulse Strength Respiratory Rate 27 H 24 21 Respiratory Effort / Characteristics Respiratory Depth Respiratory Pattern Blood Pressure 156/79 H 145/84 H 129/72 Blood Pressure [Left Arm] Blood Pressure Mean 104 104 91 Blood Pressure Mean [Left Arm] Blood Pressure Position Blood Pressure Position [Left Arm] Pulse Oximetry 98 94 95 Oxygen Delivery Method GENERAL: alert, well appearing, well nourished, no distress, non-toxic EYE EXAM: normal conjunctiva, PERRL and EOM's grossly intact EAR EXAM: TM's clear bilaterally. Scant cerumen along the canals bilaterally OROPHARYNX: no exudate, no erythema, lips, buccal mucosa, and tongue normal and mucous membranes are moist NECK: supple, no nuchal rigidity, no adenopathy, non-tender LUNGS: Clear to auscultation. Normal chest wall mechanics, no w/r/r HEART: no murmurs, S1 normal and S2 normal ABDOMEN: abdomen soft, non-tender, normo-active bowel sounds, no masses, no rebound or guarding. BACK: Back is symmetrical on inspection and there is no deformity, no midline tenderness, no CVA tenderness. SKIN: no rashes and no bruising UPPER EXTREMITIES: upper extremities are grossly normal. FROM, nml pulses b/l. LOWER EXTREMITIES: No pitting edema. FROM, nml pulses b/l. NEURO EXAM: Normal sensorium, cranial nerves II-XII grossly intact, normal speech, no gross weakness of arms, no gross weakness of legs. Gross sensation intact. Course 2255: The patient was evaluated in room B7. A complete history and physical exam was performed. 0010: Upon reevaluation, the patient is resting comfortably. I discussed laboratory and radiographic results with him. The patient verbalized agreement of the treatment plan. The patient will be evaluated for further management and care. 0015: I discussed the patient's case with Dr. Ardon, [facility]. He will evaluate the patient for further management. Administered Medications Aspirin (Ecotrin Ectab) 81 mg PO HS [facility] Stop: 02/19/19 20:59 Last Admin: 01/20/19 20:49 Dose: 81 mg Documented by: [id number] Clopidogrel Bisulfate (Plavix) 75 mg PO DAILY [facility] Stop: 02/19/19 08:59 Last Admin: 01/20/19 08:22 Dose: 75 mg Documented by: [id number] Fluticasone Propionate (Flonase) 2 sprays NA DAILY [facility] Stop: 02/19/19 08:59 Last Admin: 01/20/19 08:24 Dose: Not Given Documented by: [id number] Lisinopril (Zestril) 5 mg PO DAILY [facility] Stop: 02/19/19 08:59 Last Admin: 01/20/19 08:23 Dose: 5 mg Documented by: [id number] Magnesium Oxide (Mag-Ox) 400 mg PO QAM [facility] Stop: 02/19/19 08:59 Last Admin: 01/20/19 08:22 Dose: 400 mg Documented by: [id number] Multivitamins/Minerals (Multivitamin W/ Minerals Tab) 1 tab PO QAM [facility] Stop: 02/19/19 08:59 Last Admin: 01/20/19 08:21 Dose: 1 tab Documented by: [id number] Discontinued Medications Aspirin (Ecotrin) 325 mg PO NOW [facility] Stop: 01/20/19 00:20 Last Admin: 01/20/19 00:57 Dose: Not Given Documented by: [id number] Aspirin (Aspirin) Confirm Administered Dose 324 mg .ROUTE .STK-MED ONE Stop: 01/20/19 00:56 Last Admin: 01/20/19 00:57 Dose: 324 mg Documented by: [id number] Nitroglycerin (Nitro-Bid 2%) 1 inch EXT NOW [facility] Stop: 01/19/19 23:19 Last Admin: 01/19/19 23:29 Dose: 1 inch Documented by: [id number] Nitroglycerin (Nitro-Bid 2%) 1 inch EXT Q6 [facility] Stop: 02/19/19 05:59 Last Admin: 01/20/19 05:59 Dose: 1 inch Documented by: [id number] Pantoprazole Sodium (Protonix) 40 mg PO QAM [facility] Stop: 02/19/19 08:59 Last Admin: 01/20/19 08:22 Dose: 40 mg Documented by: [id number] Medical Decision Making Differential Diagnosis Differential diagnosis: Etiologies such as cardiac ischemia, aortic dissection, pulmonary embolism, pneumonia, pneumothorax, musculoskeletal, infections, pericarditis, myocarditis, esophageal rupture, gastrointestinal, as well as others were entertained. Medical Records Attestation: I reviewed the patient's medical records. Home Medications Current Medication List: was personally reviewed by me Laboratory Data Attestation: I reviewed the patient's lab results. Result diagrams: 01/20/19 01:57 01/20/19 01:57 Lab Results 01/19/19 01/19/19 01/19/19 Range/Units 22:30 22:57 22:57 WBC 7.15 (4.8-10.8) K/uL RBC 4.21 L (4.7-6.1) M/uL Hgb 13.0 L (14.0-18.0) g/dL Hct 37.2 L (42-52) % MCV 88.4 (80-100) fL MCH 30.9 (25-34) pg MCHC 34.9 (32-36) g/dL RDW Std Deviation 41.4 (36.4-46.3) fL RDW Coeff of Maria M 12.9 (11.5-14.5) % Plt Count 226 (130-400) K/uL MPV 9.0 (7.4-10.4) fL Immature Gran % (Auto) 0.1 % Neut % (Auto) 46.6 % Lymph % (Auto) 35.2 % [place] % (Auto) 14.4 % Eos % (Auto) 3.4 % Baso % (Auto) 0.3 % Immature Gran # (Auto) 0.01 (0.00-0.02) K/uL Neut # (Auto) 3.33 (1.4-6.5) K/uL Lymph # (Auto) 2.52 (1.2-3.4) K/uL [place] # (Auto) 1.03 H (0.11-0.59) K/uL Eos # (Auto) 0.24 (0-0.5) K/uL Baso # (Auto) 0.02 (0-0.2) K/uL Sodium 138 (136-145) mmol/L Potassium 4.1 (3.5-5.1) mmol/L Chloride 107 (98-107) mmol/L Carbon Dioxide 27 (21-32) mmol/L Anion Gap 4.0 (3-11) BUN 24 H (7-18) mg/dl Creatinine 1.06 (0.6-1.4) mg/dl Est Cr Clr Drug Dosing 54.6 ml/min Est GFR ( Amer) 75.4 Est GFR (Non-Af Amer) 65.0 BUN/Creatinine Ratio 22.4 H (10-20) Glucose 100 H (70-99) mg/dl POC Glucose 101 H (70-99) Calcium 8.4 L (8.5-10.1) mg/dl Magnesium 2.1 (1.8-2.4) mg/dl Total Bilirubin 0.2 (0.2-1) mg/dl AST 18 (15-37) U/L ALT 24 (12-78) U/L Alkaline Phosphatase 78 (45-117) U/L Troponin I < 0.015 (0-0.045) ng/ml Total Protein 7.2 (6.4-8.2) gm/dl Albumin 3.4 (3.4-5.0) gm/dl Globulin 3.8 (2.5-4.0) gm/dl Albumin/Globulin Ratio 0.9 (0.9-2) TSH 2.220 (0.300-4.500) uIu/ml Imaging Data Attestation: I personally reviewed and interpreted this imaging study as follows: My Impression: XR Chest 1V: No cardiomegaly No effusions No focal consolidation No wide mediastinum No acute pulmonary edema ECG Data Attestation: I personally reviewed and interpreted this ECG as follows: Indication: chest pain Rate (beats per minute): 78 Rhythm: sinus rhythm Findings: + other (Normal intervals ) and + left axis deviation; no acute ischemic change and no ectopy Blood Pressure Blood Pressure Findings: Elevated blood pressure Blood Pressure Disposition: elevated BP felt to be situational MDM Narrative Patient presenting with story most suggestive of unstable angina given that the right jaw and cheek discomfort has previously been his anginal equivalent. All symptoms had previously resolved at rest, they have now been more persistent today, patient also noted some dyspnea on exertion. Patient's EKG here was un remarkable, troponin negative. Patient was hemodynamically stable throughout. Patient was given in addition aspirin and Nitropaste which did help ease the discomfort along with jaw and cheek. Chest x-ray otherwise unremarkable. Case discussed with hospitalist for additional evaluation and management. Given patient's prior cardiac history, I do feel patient may benefit from additional cardiology evaluation. All results were discussed with the patient at bedside and he was in agreement with plan. Impression & Plan Unstable angina, Right facial pain, NGUYEN (dyspnea on exertion) Discharge Plan Visit Data *Final* Discharge Date/Time: 01/20/19 01:33 Chief Complaint: Cardiac Assessment Stated Complaint: SX WHEN HE GOT HEART STENTS IN, NUMBNESS ED Provider: Hannah Russ Discharge Problem: Unstable angina, Right facial pain, NGUYEN (dyspnea on exertion) Patient Disposition: Admitted As Inpatient Condition: Good Discharge Instructions Interventions: ED Discharge Assessment Last Done: 01/20/19 01:33 The scribe's documentation has been prepared under my direction and personally reviewed by me in its entirety. I confirm that the note above accurately reflects all work, treatment, procedures, and medical decision making performed by me.
[2019-01-19] MEDS ORDERED: NITROGLYCERIN 2% OINTMENT 30GM TUBE EXT STA (23:18)
[2019-01-19 23:29] LABS: Basophils # (auto) 0.02 K/uL (0-0.2); Basophils % (auto) 0.3 %; Eosinophils # (auto) 0.24 K/uL (0-0.5); Eosinophils % (auto) 3.4 %; Hematocrit (blood only) 37.2 % (42-52); Immature Granulocytes # (auto) 0.01 K/uL (0.00-0.02); Immature Granulocytes % (auto) 0.1 %; Lymphocytes # (auto) 2.52 K/uL (1.2-3.4); Lymphocytes % (auto) 35.2 %; Mean Corpuscular Hemoglobin 30.9 pg (25-34); Mean Corpuscular Hgb Conc 34.9 g/dL (32-36); Mean Corpuscular Volume 88.4 fL (80-100); Monocytes # (auto) 1.03 K/uL (0.11-0.59); Monocytes % (auto) 14.4 %; Neutrophils # (auto) 3.33 K/uL (1.4-6.5); Neutrophils % (auto) 46.6 %; Platelet Count 226 K/uL (130-400); RDW Coefficient of Variation 12.9 % (11.5-14.5); RDW Standard Deviation 41.4 fL (36.4-46.3); Red Blood Count 4.21 M/uL (4.7-6.1); White Blood Count 7.15 K/uL (4.8-10.8)
[2019-01-19 23:37] LABS: Alanine Aminotransferase 24 U/L (12-78); Albumin Level 3.4 gm/dl (3.4-5.0); Aspartate Aminotransferase 18 U/L (15-37); BUN Creatinine Ratio 22.4 (10-20); Blood Urea Nitrogen 24 mg/dl (7-18); Calcium 8.4 mg/dl (8.5-10.1); Carbon Dioxide 27 mmol/L (21-32); Chloride 107 mmol/L (98-107); Creatinine Clr Calc Pharmacy 54.6 ml/min; Est GFR (African American) 75.4; Glucose 100 mg/dl (70-99); Magnesium 2.1 mg/dl (1.8-2.4); Potassium 4.1 mmol/L (3.5-5.1); Sodium 138 mmol/L (136-145)
[2019-01-19 23:48] LABS: Albumin Globulin Ratio 0.9 (0.9-2); Alkaline Phosphatase 78 U/L (45-117); Bilirubin,Total 0.2 mg/dl (0.2-1); Globulin 3.8 gm/dl (2.5-4.0); Total Protein 7.2 gm/dl (6.4-8.2); Troponin I < 0.015 ng/ml (0-0.045)
[2019-01-20] MEDS ORDERED: ASPIRIN 325 MG ECTAB PO STA (00:19)
[2019-01-20] MEDS ORDERED: ASPIRIN CHEW 324 MG ONE (00:55)
[2019-01-20] MEDS ORDERED: ACETAMINOPHEN 325 MG TAB PO PRN (01:46)
[2019-01-20] MEDS ORDERED: MoRPHine SULFATE 2 MG/ML CARP IV PRN (01:46)
[2019-01-20] MEDS ORDERED: POLYETHYLENE (MIRALAX) 17 GM PACK PO PRN (01:46)
[2019-01-20] MEDS ORDERED: ONDANSETRON INJ 2 MG/ML 2 ML VIAL IV PRN (01:46)
[2019-01-20] MEDS ORDERED: ARTIFICIAL TEARS OP PRN (01:46)
[2019-01-20] MEDS ORDERED: ARTIFICIAL TEARS OP OINT 3.5 GM TUBE OP PRN (01:46)
--- NOTE | 2019-01-20 02:08 | History and Physical Report ---
DATE OF ADMISSION: 01/20/2019 CHIEF COMPLAINT: Jaw pain. HISTORY OF PRESENT ILLNESS: This is an 83-year-old male with past medical history significant for coronary artery disease, status post stents, angiotensin-converting enzyme inhibitor intolerance, statin intolerance, beta-radha intolerance, history of sleep apnea, does not use continuous positive airway pressure every day, hyperlipidemia, hypertension, status post stricture, gastroesophageal reflux disease and degenerative disc disease of spine who presents with jaw pain. The patient states he has right sided jaw pain for some time, but today it got more severe and it radiated to the left jaw and was subsequently felt somewhat hot. On last , he felt like he was worn out. Because of his ongoing symptoms, he came to the Emergency Room. Initial workup is negative. The patient states he never gets chest pain with his heart disease in the past. He was placed on nitro paste in the Emergency Room. He states while resting, he feels fine, but whenever he gets up and starts moving, it gets severe. Right now, as he is resting, his jaw discomfort is improved, but does not know whether nitro is helping. Denies any shortness of breath. No cough. No fever. No chills. No headache. No dizziness. No earache. No runny nose. No sore throat. No difficulty swallowing. Appetite is okay. No blurred vision. No nausea. No vomiting. No abdominal pain. Normal bowel and bladder movements. No melena, hematochezia or hematuria. No swelling in the legs. No rash. Currently, resting comfortable and hemodynamically stable. ALLERGIES: CRESTOR, AMOXICILLIN, ATORVASTATIN, BACITRACIN, DICLOFENAC SODIUM, LIPITOR, METOPROLOL, TESSALON PERLES AND TRAMADOL. PAST MEDICAL HISTORY: As mentioned above. PAST SURGICAL HISTORY: Cardiac stent placement, colonoscopy with biopsy, right hemicolectomy, radical prostatectomy, tonsillectomy, inguinal hernia repair and ventral hernia repair. MEDICATIONS: Currently, the patient is on lisinopril 5 mg p.o. daily, Flonase 2 sprays in each nostril daily, Protonix 40 mg p.o. daily, MiraLax 17 g p.o. daily p.r.n., Plavix 75 mg p.o. daily, magnesium oxide 400 mg p.o. daily, nitroglycerin 0.4 mg sublingual p.r.n., Tylenol 325 mg p.o. q. 6 hours p.r.n., omega 3 fish oil 1000 mg p.o. b.i.d., aspirin 81 mg p.o. daily, eyedrops, vitamin D 2000 units p.o. daily and multivitamins daily. FAMILY HISTORY: Significant for brother has non-Hodgkin lymphoma. Sister has multiple myeloma. Brother has diabetes, glaucoma, hypertension, stroke and skin cancer. SOCIAL HISTORY: Single. No smoking since . Stopped alcohol in 1978. No drug use. REVIEW OF SYMPTOMS: As per HPI. Rest of review of systems negative. PHYSICAL EXAMINATION: GENERAL: The patient is of moderate build, not in acute distress. VITAL SIGNS: Temperature 36.7, pulse 71, respiratory rate 21, blood pressure ____ and oxygen 95% on room air. HEENT: No pallor. No icterus. Pupils are equal, round and reactive to light. NECK: No JVD. No neck masses. No carotid bruits. CARDIOVASCULAR: S1, S2 heard. Regular rate and rhythm. No murmur. No gallop. RESPIRATORY SYSTEM: Normal AP diameter. No accessory muscle use. No wheezing. No crackles. ABDOMEN: Soft. Bowel sounds present. Nontender. No distention. CENTRAL NERVOUS SYSTEM: Cranial nerves II through XII grossly intact. Nonfocal. EXTREMITIES: No edema. No erythema. LABORATORY DATA: WBC 7.15, hemoglobin 13, hematocrit 37.2 and platelets 226. Sodium 138, potassium 4.1, chloride 107, bicarbonate 27, BUN 24, creatinine 1.06, serum glucose 100, calcium 8.4, magnesium 2.1, total bilirubin 0.2, AST 18, ALT 24 and alkaline phosphatase 70. Troponin I less than 0.015. Thyroid stimulating hormone 2.2. Chest x-ray, no acute findings. Electrocardiogram, normal sinus rhythm with sinus arrhythmia at a rate of 78 and no significant change from previous electrocardiogram. ASSESSMENT AND PLAN: This 83-year-old male who presents with jaw pain. 1. Jaw pain, he used to get on the right side radiating to his left side. He states it is going on for some time, but it got worse today, more with exertion, relieved with rest. Possible unstable angina, he has never had chest pain in the past with his cardiac disease, currently resting the pain is improved. We will continue nitro paste. Follow serial cardiac enzymes, repeat electrocardiogram in a.m. and echocardiogram. We will keep n.p.o. for now until seen by cardiology and monitor on tele floor. 2. History of coronary artery disease, status post stents. Continue his home medications. Does not tolerate statin or beta-radha. Continue his home lisinopril, aspirin and Plavix. 3. Obstructive sleep apnea, uses continuous positive airway pressure. 4. Hypertension, on lisinopril. We will monitor the blood pressure. 5. Gastroesophageal reflux disease, on proton pump inhibitor. 6. Hyperlipidemia, not on medication because of intolerance.Follow Lipid profile. 7. Deep venous thrombosis prophylaxis, sequential compression devices for now. 8. Disposition: Observation in tele floor. Expect to discharge home and follow up with his family doctor. Level 1 full code. MTDD
[2019-01-20 02:16] LABS: Basophils # (auto) 0.03 K/uL (0-0.2); Basophils % (auto) 0.4 %; Eosinophils # (auto) 0.18 K/uL (0-0.5); Eosinophils % (auto) 2.5 %; Hematocrit (blood only) 36.7 % (42-52); Hemoglobin 12.7 g/dL (14.0-18.0); Immature Granulocytes # (auto) 0.01 K/uL (0.00-0.02); Immature Granulocytes % (auto) 0.1 %; Lymphocytes # (auto) 2.44 K/uL (1.2-3.4); Lymphocytes % (auto) 33.3 %; Mean Corpuscular Hemoglobin 30.8 pg (25-34); Mean Corpuscular Hgb Conc 34.6 g/dL (32-36); Mean Corpuscular Volume 89.1 fL (80-100); Monocytes # (auto) 0.79 K/uL (0.11-0.59); Monocytes % (auto) 10.8 %; Neutrophils # (auto) 3.87 K/uL (1.4-6.5); Neutrophils % (auto) 52.9 %; Platelet Count 213 K/uL (130-400); RDW Coefficient of Variation 12.9 % (11.5-14.5); RDW Standard Deviation 41.6 fL (36.4-46.3); Red Blood Count 4.12 M/uL (4.7-6.1); White Blood Count 7.32 K/uL (4.8-10.8)
[2019-01-20 02:34] LABS: BUN Creatinine Ratio 21.4 (10-20); Calcium 8.4 mg/dl (8.5-10.1); Creatinine Clr Calc Pharmacy 52.2 ml/min; Est GFR (Non-African American) 68.1; Magnesium 2.2 mg/dl (1.8-2.4); Potassium 4.3 mmol/L (3.5-5.1)
[2019-01-20] MEDS ORDERED: NITROGLYCERIN 2% OINTMENT 30GM TUBE EXT SCH (06:00)
--- NOTE | 2019-01-20 07:31 | XRay Report ---
XR chest 1V portable HISTORY: Atypical chest pain.sob COMPARISON: Chest 12/24/2017. FINDINGS: Left basilar linear densities favor subsegmental atelectasis. This is similar to the prior study. The lungs are otherwise clear. No pleural effusions. No pneumothorax. The heart is normal in s ize. IMPRESSION: No significant change compared to the prior study. No acute process. Electronically signed by: Aaron Reis M.D. 01/20/2019 7:30 AM
[2019-01-20] MEDS: CEROVITE ADV FORMULA TAB PO SCH (08:21)
[2019-01-20] MEDS: MAGNESIUM OXIDE 400 MG TAB PO SCH (08:22)
[2019-01-20] MEDS: CLOPIDOGREL BISULFATE 75 MG TAB PO SCH (08:22)
[2019-01-20] MEDS: lisinopriL 5 MG TAB PO SCH (08:23)
[2019-01-20] MEDS: FLUTICASONE PROPIONATE NA SPR 16 GM BTL SCH (08:24)
[2019-01-20] MEDS ORDERED: PANTOprazole 40 MG TAB PO SCH (09:00)
[2019-01-20 09:18] LABS: Chol HDL Ratio 4; Cholesterol 190 mg/dl (0-200); HDL Cholesterol 44 mg/dl; LDL Cholesterol Calculated 134 mg/dl; Triglycerides 62 mg/dl (0-150); VLDL Cholesterol 12 mg/dl
--- NOTE | 2019-01-20 13:30 | Cardiology Consultation ---
Date of Consultation January 20, 2019 Assessment & Plan (1) Unstable angina: The patient has a long-standing history of symptoms that have been atypical for angina. He has had past presentations with negative cardiac enzymes, and significant obstructive CAD noted on cardiac catheterization. He has also presented in the past with symptoms reminiscent of his prior angina, with stable cardiac catheterization findings. At this time, there is no indication for emergent cardiac catheterization, but I do think the patient needs to remain in the hospital for ongoing observation, and anticipate need for repeat diagnostic cardiac catheterization this admission. We will advance his diet for now, and keep him n.p.o. after midnight. Medication management of his symptoms has been very complicated in the past because he has demonstrated intolerance to multiple medications including calcium channel blockers, long-acting nitrates, and beta-radha therapy. He remains on dual antiplatelet therapy since his most recent PCI which was a bifurcating LAD diagonal lesion in June,. History of Present Illness Attending Physician: Leta Menon MD History of Present Illness Stefani Jones is an 83 year old male seen in cardiology consultation per the request of Dr Ardon of the evaluation of jaw discomfort. The patient is well known to the undersigned as I have followed him in an inpatient and outpatient basis since 2011. He states that for the last month he has been having symptoms of a numbness and discomfort around his jaw. He has had this in the past, it is been attributed to hypoglycemia as well as angina in the past. The symptoms had recently been getting worse, especially occur with exertion. At present during my discussion with him he was feeling well. EKG revealed sinus rhythm without significant repolarization changes to suggest ischemia, his cardiac enzymes have been negative x3 so far this hospital stay with initial reading having been performed last evening at 2257 and his third reading at 735 this morning. Past Cardiac / Interventional History: Chronic coronary heart disease with a long-standing history of atypical symptoms 03/2012, drug-eluting stent to the circumflex coronary artery 02/2013, drug-eluting stent to the proximal LAD 06/2017, presented with atypical symptoms, and stress test with atypical findings of right ventricular apical hypokinesis at peak stress with reproduction of anginal symptoms, cardiac catheterization revealed new LAD diagonal disease for which he underwent drug-eluting stents to a bifurcating lesion of the mid LAD and the ostium of the first diagonal 06/13/2017, Dr. Sunshine, [facility] 12/2017, recurrent symptoms of jaw pain, diagnostic cardiac catheterization performed by Dr. Harley , patent stents, medical management recommended. Allergies Allergy/AdvReac Type Severity Reaction Status Date / Time atorvastatin Allergy Intermediate RASH Verified 01/20/19 01:32 bacitracin Allergy Intermediate RASH Verified 01/20/19 01:32 rosuvastatin Allergy Unknown Rash. Verified 01/20/19 01:32 metoprolol AdvReac Unknown "DIDNT Verified 01/20/19 01:32 AGREE WITH ME" Home Medications Home Medications Medication Instructions Recorded Confirmed Type Centrum Silver 1 tab PO QAM 12/24/17 01/20/19 History Lubricant Eye 1 applic OPHTHALMIC (EYE) UD PRN 12/24/17 01/20/19 History acetaminophen [Tylenol Extra 500 mg PO QAM 12/24/17 01/20/19 History Strength] artificial tear([id number]) 1 drp OPHTHALMIC (EYE) QID PRN 12/24/17 01/20/19 History aspirin 81 mg PO HS 12/24/17 01/20/19 History cholecalciferol (vitamin D3) 2,000 unit PO DAILY 12/24/17 01/20/19 History [Vitamin D3] clopidogrel [Plavix] 75 mg PO DAILY 12/24/17 01/20/19 History lisinopril 5 mg PO DAILY 12/24/17 01/20/19 History magnesium oxide 400 mg PO QAM 12/24/17 01/20/19 History omega 2-avm-xhp-fish oil [Fish Oil] 1,400 mg PO BID 12/24/17 01/20/19 History pantoprazole [Protonix] 40 mg PO QAM 12/24/17 01/20/19 History fluticasone propionate 2 spray INTRANASAL DAILY 12/26/17 01/20/19 History nitroglycerin [Nitrostat] 0.4 mg SUBLINGUAL UD PRN #25 tab 12/26/17 01/20/19 Rx Patient History Medical History SONALI treated with BiPAP (Chronic) CAD (coronary artery disease) (Chronic) CHI to CX 03/2012; CHI to proximal LAD 02/2013. CHI to a bifurcating lesion of the mid LAD and ostium of the first diagonal 06/13/2017. REPEAT CATH 12/26/17 SHOWED PATENT STENTS AND ARTERIES. Vitamin D deficiency (Chronic) PVCs (premature ventricular contractions) (Chronic) Statin intolerance (Chronic) HLD (hyperlipidemia) (Chronic) GERD (gastroesophageal reflux disease) History of prostate cancer 2002 Hypoglycemia PT EDUCATED ON DIET RESTRICTIONS PRIOR TO SURGERY AND USE OF 3 OZ OF APPLE JUICE IN EVENT OF EMERGENCY >2 HOURS PRIOR. Surgical History History of radical prostatectomy (Resolved) Status post partial colectomy (Resolved) "large polyp" S/P inguinal hernia repair (Resolved) S/P coronary artery stent placement (Resolved) H/O cardiac catheterization CHI to CX 03/2012; CHI to proximal LAD 02/2013. CHI to a bifurcating lesion of the mid LAD and ostium of the first diagonal 06/13/2017. REPEAT CATH 12/26/17 SHOWED PATENT STENTS AND ARTERIES. History of appendectomy TAKEN DURING PARTIAL COLECTOMY History of colonoscopy History of tonsillectomy Family History Other Family history non-contributory Social History Preferred Language: Swedish Communication Ability: Effective Nnp Required: No Beliefs That Will Affect Care: None marital status: Single Current Living Situation: Alone Current Living Situation Comment: pt planning on moving closer to friends in [place] Feels Safe at Home: Yes Safety Concerns: Feels Safe At This Time Smoking Status: Never smoker Tobacco Type: cigarettes ; Cigarettes Per Day: HX OF SOCIAL USE X7 YEARS, QUIT 50+ YEARS AGO ; Second Hand Exposure: No ; Hx Alcohol Use: Yes Hx Substance Use: No Review of Systems Review of Systems: All systems reviewed & are unremarkable except as noted in HPI & below Physical Exam Physical Exam: Temp Pulse Resp BP Pulse Ox 36.5 C 65 20 111/53 L 96 01/20/19 11:13 01/20/19 11:13 01/20/19 11:13 01/20/19 11:13 01/20/19 11:13 Constitutional: WD/WN, vitals as above Respiratory: normal respiratory effort, lungs clear to auscultation Cardiovascular: RRR, no murmur, no edema Gastrointestinal (Abdomen): normal bowel sounds, soft, nontender, no hepatosplenomegaly Skin: no rashes, warm and dry Neurologic: PERRL, EOMI, accommodation nl, no face palsy, no dysarthria Results & Data Vital Signs (Past 12 Hours) Vital Signs Temp Pulse Pulse Resp BP Pulse Ox 01/20/19 11:13 36.5 C 65 20 111/53 L 96 01/20/19 10:16 118/52 L 01/20/19 08:00 74 01/20/19 07:55 36.5 C 69 20 99/55 L 96 01/20/19 03:16 36.5 C 78 16 90/42 L 95 01/20/19 01:38 36.7 C 74 18 120/71 99 Laboratory Results Cardiac Enzymes 01/19/19 01/20/19 01/20/19 Range/Units 22:57 01:57 07:35 AST 18 (15-37) U/L Troponin I < 0.015 < 0.015 < 0.015 (0-0.045) ng/ml Lipids 01/20/19 Range/Units 07:35 Triglycerides 62 (0-150) mg/dl Cholesterol 190 (0-200) mg/dl HDL Cholesterol 44 mg/dl Cholesterol/HDL Ratio 4 CBC 01/19/19 01/20/19 Range/Units 22:57 01:57 WBC 7.15 7.32 (4.8-10.8) K/uL RBC 4.21 L 4.12 L (4.7-6.1) M/uL Hgb 13.0 L 12.7 L (14.0-18.0) g/dL Hct 37.2 L 36.7 L (42-52) % Plt Count 226 213 (130-400) K/uL Neut # (Auto) 3.33 3.87 (1.4-6.5) K/uL Lymph # (Auto) 2.52 2.44 (1.2-3.4) K/uL [place] # (Auto) 1.03 H 0.79 H (0.11-0.59) K/uL Eos # (Auto) 0.24 0.18 (0-0.5) K/uL Baso # (Auto) 0.02 0.03 (0-0.2) K/uL Comprehensive Metabolic Panel 01/19/19 01/20/19 Range/Units 22:57 01:57 Sodium 138 139 (136-145) mmol/L Potassium 4.1 4.3 (3.5-5.1) mmol/L Chloride 107 106 (98-107) mmol/L Carbon Dioxide 27 29 (21-32) mmol/L BUN 24 H 22 H (7-18) mg/dl Creatinine 1.06 1.02 (0.6-1.4) mg/dl Glucose 100 H 91 (70-99) mg/dl Calcium 8.4 L 8.4 L (8.5-10.1) mg/dl AST 18 (15-37) U/L ALT 24 (12-78) U/L Alkaline Phosphatase 78 (45-117) U/L Total Protein 7.2 (6.4-8.2) gm/dl Albumin 3.4 (3.4-5.0) gm/dl Intake and Output 01/19/19 01/20/19 01/20/19 22:59 06:59 14:59 Output Total 250 / 250 Balance -250 / -250 Output: Urine 250 / 250 Other: Weight 80.6 kg 78.5 kg Diagnostic Findings EKG performed 01/19/2019 at 2237 normal sinus rhythm with sinus arrhythmia, 70 bpm per compared to 12/26/2017 there is been no significant interval change. Echocardiogram performed this morning reviewed independently revealed mild concentric left ventricular hypertrophy Left ventricular wall motion was normal, normal LVEF in the range of 55 to 60%. Mild aortic valve sclerosis without stenosis was present. Grade 1 diastolic dysfunction was present. Medications Administered Current Inpatient Medications Acetaminophen (Tylenol) 650 mg PO Q4H PRN PRN Reason: Pain or Fever Stop: 02/19/19 01:45 Artificial Tears (Artificial Tears) 1 drops OP QID PRN PRN Reason: Dry Eye(S) Aspirin (Ecotrin Ectab) 81 mg PO HS MERRY Stop: 02/19/19 20:59 Clopidogrel Bisulfate (Plavix) 75 mg PO DAILY MERRY Stop: 02/19/19 08:59 Last Admin: 01/20/19 08:22 Dose: 75 mg Documented by: Fluticasone Propionate (Flonase) 2 sprays NA DAILY MERRY Stop: 02/19/19 08:59 Last Admin: 01/20/19 08:24 Dose: Not Given Documented by: Lisinopril (Zestril) 5 mg PO DAILY [facility] Stop: 02/19/19 08:59 Last Admin: 01/20/19 08:23 Dose: 5 mg Documented by: Magnesium Oxide (Mag-Ox) 400 mg PO QAM [facility] Stop: 02/19/19 08:59 Last Admin: 01/20/19 08:22 Dose: 400 mg Documented by: Morphine Sulfate (Morphine Sulfate) 2 mg IV Q30M PRN PRN Reason: Chest Pain Stop: 02/03/19 01:45 EST Multi-Ingredient Cream (Lacri-Lube) 1 appln OP PRN PRN PRN Reason: Dry Eye(S) Stop: 02/19/19 01:45 Multivitamins/Minerals (Multivitamin W/ Minerals Tab) 1 tab PO [facility] Stop: 02/19/19 08:59 Last Admin: 01/20/19 08:21 Dose: 1 tab Documented by: Ondansetron HCl (Zofran) 4 mg IV Q6H PRN PRN Reason: Nausea Stop: 02/19/19 01:45 Polyethylene Glycol (Miralax Powder Packet) 17 gm PO DAILY PRN PRN Reason: Constipation Stop: 02/19/19 01:45
--- NOTE | 2019-01-20 16:16 | Hospitalist Progress Note ---
Date of Service January 20, 2019 Assessment & Plan (1) Numbness and tingling of right face: Patient has recurrent history of right jaw pain, suggestive of angina symptoms On admission EKG showed no ischemic change cardiac markers has been negative Patient does report symptoms most of them precipitated by low blood sugar Recently was having recurrent episodes with exertion Significant history of coronary artery disease as well as multiple PTCA, with high risk of worsening of coronary atherosclerotic process Appreciate input from cardiology, Resting echocardiogram shows normal LV function no motion of normal Patient will be scheduled for diagnostic cardiac cath tomorrow Continue all cardiac meds, cardiac monitoring to assess for arrhythmia (2) CAD (coronary artery disease): History of coronary artery disease: Status post drug-eluting stent to circumflex coronary artery on 03/2012, Drug-eluting stent to proximal LAD in 02/2013 Status post drug-eluting stent on mid LAD lesion and first diagonal on 06/13/2017 Post cardiac catheter 12/2017: Patent stents Patient is continue with aspirin and Plavix Intolerant to statin and beta-radha Resents with progression of dyspnea on exertion tiredness, recurrent jaw pain Patient for diagnostic cardiac cath tomorrow Hypoglycemia Unexplained hypoglycemic episodes ongoing for months No history of diabetes Not on any antidiabetic meds She reports of eating at least 3 meals a day, with frequent snacks in between Still gets symptomatic as multiple times noted blood sugar around 80(patient has glucometer which he checks his blood sugar multiple times a day) Was found to be symptomatic (pain and numbness on face, bilateral jaw /dizzy spell lightheadedness )with fasting BSG 89 Given orange juice BSG was 120 with resolution of symptoms Ordered for hemoglobin A1c Hypoglycemic work-up: Fasting insulin, C-reactive protein, pro insulin, insulin antibody, plasma sulfonylurea level TSH within normal limit Protonix discontinued as it is associated with increase insulin level leading to hypoglycemia Continue monitor BSG AC and HS , every 6 hours when n.p.o. CODE STATUS: Full code Disposition: Monitor in telemetry Expected to be discharged home when medically stable Subjective Patient reports of feeling numbness on his right jaw radiating to lower jaw and left side, [place] dizzy lightheaded this morning Did he has had this feeling in the past as well every time his blood sugar will be low AM BSG 89, patient was given orange juice (was n.p.o. past midnight pending cardiac stress test/cardiac work-up) Repeat BSG 120 Patient reports of improvement of dizzy spell, lightheadedness Mention he has been having low blood sugar episodes for last 1-2 years, He is not a diabetic does not take any any diabetic meds, Does not skip meals, usually takes frequent snacks to prevent hypoglycemia Reports of increased fatigue, dyspnea on exertion for last 2 weeks At present no complaint of chest heaviness or chest tightness Physical Exam Constitutional: WD/WN, vitals as above no acute distress Eyes: PERRL, conjunctivae normal, anicteric sclerae ENMT: external ear and nose normal, oropharynx normal Neck: trachea midline, no thyromegaly Respiratory: normal respiratory effort, lungs clear to auscultation Cardiovascular: RRR, no murmur, no edema Gastrointestinal (Abdomen): normal bowel sounds, soft, nontender, no hepatosplenomegaly Musculoskeletal: no cyanosis or clubbing, extremities motor strength 5/5 Skin: no rashes, warm and dry Neurologic: patellar DTR's 2+ bilat, sensation intact Psychiatric: A+Ox3, euthymic affect Results & Data Vital Signs (Past 12 Hours) Vital Signs Temp Pulse Pulse Pulse Resp BP BP 01/20/19 16:00 79 01/20/19 15:21 36.7 C 78 18 111/57 L 01/20/19 11:13 36.5 C 65 20 111/53 L 01/20/19 10:16 118/52 L 01/20/19 08:00 74 01/20/19 07:55 36.5 C 69 20 99/55 L Pulse Ox 01/20/19 16:00 01/20/19 15:21 96 01/20/19 11:13 96 01/20/19 10:16 01/20/19 08:00 01/20/19 07:55 96 (1) CAD (coronary artery disease) Coronary Disease-Associated Artery/Lesion type: [place] artery [place] vs. transplanted heart: [place] heart Associated angina: with stable angina Qualified Code(s): I25.118 - Atherosclerotic heart disease of [place] coronary artery with other forms of angina pectoris
[2019-01-20] MEDS ORDERED: DEXTROSE 50% 50 ML SYRINGE IV PRN (18:02)
[2019-01-20] MEDS ORDERED: GLUCOSE 10 TABS/TUBE PO PRN (18:02)
[2019-01-20] MEDS ORDERED: CARBOHYDRATES FOR HYPOGLYCEMIA PO PRN (18:02)
[2019-01-20] MEDS ORDERED: GLUCOSE 40% GEL 15 GM TUBE PO PRN (18:02)
[2019-01-20] MEDS ORDERED: GLUCAGON FOR INJ 1 MG VIAL SQ PRN (18:02)
[2019-01-20] MEDS: ASPIRIN 81 MG ECTAB PO SCH (20:49)
[2019-01-21] MEDS ORDERED: Nursing to Pharmacy Communication ONE ×2 (06:03→15:57)
[2019-01-21 08:08] LABS: Estimated Average Glucose 120 mg/dl; Hemoglobin A1C 5.8 % (4.5-5.6)
[2019-01-21] MEDS: MAGNESIUM OXIDE 400 MG TAB PO SCH (08:12)
[2019-01-21] MEDS: CEROVITE ADV FORMULA TAB PO SCH (08:12)
[2019-01-21] MEDS: CLOPIDOGREL BISULFATE 75 MG TAB PO SCH (08:12)
[2019-01-21] MEDS: FLUTICASONE PROPIONATE NA SPR 16 GM BTL SCH (08:13)
[2019-01-21] MEDS: lisinopriL 5 MG TAB PO SCH (08:13)
--- NOTE | 2019-01-21 12:27 | Cardiology Progress Note ---
Date of Service January 21, 2019 Assessment & Plan (1) Right facial pain: Patient with pain, jaw discomfort, that is reminiscent of his prior anginal symptoms. This discomfort is also been attributed to low blood sugar with him in the past. This was his presenting symptom at the time of his presentation in June, when he had a complex LAD diagonal intervention. Plan a cardiac catheterization this admission, pending scheduling. Keep n.p.o. for now. If he gets too lightheaded, will feed him, and plan for procedure tomorrow. Dr. Harley to reassess him later today. Subjective Chief complaint: Follow-up jaw pain Subjective: Patient without chest discomfort, has ongoing. Oral pain jaw pain, with negative enzymes. Negative EKG. Review of Systems Review of Systems: All systems reviewed & are unremarkable except as noted in HPI & below Physical Exam Physical Exam: Temp Pulse Resp BP Pulse Ox 36.9 C 70 18 136/67 96 01/21/19 11:50 01/21/19 11:50 01/21/19 11:50 01/21/19 11:50 01/21/19 11:50 Constitutional: WD/WN, vitals as above Respiratory: normal respiratory effort, lungs clear to auscultation Cardiovascular: RRR, no murmur, no edema Gastrointestinal (Abdomen): normal bowel sounds, soft, nontender, no hepatosplenomegaly Neurologic: PERRL, EOMI, accommodation nl, no face palsy, no dysarthria Results & Data Vital Signs (Past 12 Hours) Vital Signs Temp Pulse Resp BP BP Pulse Ox 01/21/19 11:50 36.9 C 70 18 136/67 96 01/21/19 07:45 36.9 C 73 20 142/78 H 97 01/21/19 03:39 36.9 C 76 19 100/48 L 95
[2019-01-21] MEDS ORDERED: D5W AND NSS 1,000 ML IV SCH (12:30)
--- NOTE | 2019-01-21 12:46 | Hospitalist Progress Note ---
Date of Service January 21, 2019 Assessment & Plan (1) Numbness and tingling of right face: Patient has recurrent history of right jaw pain, suggestive of angina symptoms On admission EKG showed no ischemic change cardiac markers has been negative Patient does report symptoms most of them precipitated by low blood sugar Recently was having recurrent episodes with exertion Significant history of coronary artery disease as well as multiple PTCA, with high risk of worsening of coronary atherosclerotic process Appreciate input from cardiology, Resting echocardiogram shows normal LV function no motion of normal Patient patient was scheduled for diagnostic cardiac cath today Rescheduled cardiac cath for tomorrow 01/20/2019 Diet resumed, ordered for n.p.o. past midnight Continue all cardiac meds, cardiac monitoring to assess for arrhythmia (2) CAD (coronary artery disease): History of coronary artery disease: Status post drug-eluting stent to circumflex coronary artery on 03/2012, Drug-eluting stent to proximal LAD in 02/2013 Status post drug-eluting stent on mid LAD lesion and first diagonal on 06/13/2017 Post cardiac catheter 12/2017: Patent stents Patient is continue with aspirin and Plavix Intolerant to statin and beta-radha Hypoglycemia Unexplained hypoglycemic episodes ongoing for months No history of diabetes Not on any antidiabetic meds pt reports of eating at least 3 meals a day, with frequent snacks in between Still gets symptomatic when blood sugar around 80(patient has glucometer which he checks his blood sugar multiple times a day) Was found to be symptomatic (pain and numbness on face, bilateral jaw /dizzy spell lightheadedness )with fasting BSG 89 Given orange juice BSG was 120 with resolution of symptoms hemoglobin A1c 5.8 (nondiabetic) Hypoglycemic work-up: Has been unremarkable so far Fasting insulin -11.1 (BS) Pro insulin: Pending C-peptide: Pending Beta hydroxybutyrate acid:1.23 ( normal ) insulin antibody: Pending TSH within normal limit Protonix discontinued as it is associated with increase insulin level leading to hypoglycemia Continue monitor BSG AC and HS , every 6 hours when n.p.o. Started with dextrose with normal saline at 75 mL/h overnight as he will be n.p.o. past midnight for cardiac cath tomorrow CODE STATUS: Full code Disposition: Monitor in telemetry Expected to be discharged home when medically stable Subjective Has not had any episode of chest heaviness, no shortness of breath, no arrhythmia noted on telemetry Patient was n.p.o. past midnight for planned cardiac cath today Pain blood sugar was 89, patient reports of having numbness/jaw pain bilaterally with dizzy spell Given dextrose, orange juice, symptom subsided Ordered for dextrose+ nss IV fluid Appreciate input from cardiology Plan for cardiac catheter tomorrow Diet ordered, n.p.o. past midnight Review of Systems Review of Systems: All systems reviewed & are unremarkable except as noted in HPI & below Physical Exam Constitutional: WD/WN, vitals as above no acute distress Eyes: PERRL, conjunctivae normal, anicteric sclerae ENMT: external ear and nose normal, oropharynx normal Neck: trachea midline, no thyromegaly Respiratory: normal respiratory effort, lungs clear to auscultation Cardiovascular: RRR, no murmur, no edema Gastrointestinal (Abdomen): normal bowel sounds, soft, nontender, no hepatos plenomegaly Musculoskeletal: no cyanosis or clubbing, extremities motor strength 5/5 Skin: no rashes, warm and dry Neurologic: patellar DTR's 2+ bilat, sensation intact Psychiatric: A+Ox3, euthymic affect Results & Data Vital Signs (Past 12 Hours) Vital Signs Temp Pulse Resp BP BP Pulse Ox 01/21/19 11:50 36.9 C 70 18 136/67 96 01/21/19 07:45 36.9 C 73 20 142/78 H 97 01/21/19 03:39 36.9 C 76 19 100/48 L 95 (1) CAD (coronary artery disease) Associated angina: with stable angina Coronary Disease-Associated Artery/Lesion type: [place] artery [place] vs. transplanted heart: [place] heart Qualified Code(s): I25.118 - Atherosclerotic heart disease of [place] coronary artery with other forms of angina pectoris
--- NOTE | 2019-01-21 14:32 | History & Physical Bridge Note ---
Date of Service January 21, 2019 History & Physical Bridge Note I have examined the patient, reviewed the History & Physical and in the interval since the performance of the History & Physical I have noted the following changes of clinical significance: no changes noted The patient understands the risk, benefit and intent to the cardiac catheterization as planned for tomorrow and is willing to proceed. He will receive IV hydration overnight.
[2019-01-21] MEDS: ASPIRIN 81 MG ECTAB PO SCH (19:27)
[2019-01-22] MEDS ORDERED: D5W AND NSS 1,000 ML IV SCH
[2019-01-22] MEDS: FLUTICASONE PROPIONATE NA SPR 16 GM BTL SCH (08:10)
[2019-01-22] MEDS: MAGNESIUM OXIDE 400 MG TAB PO SCH (08:42)
[2019-01-22] MEDS: CEROVITE ADV FORMULA TAB PO SCH (08:42)
[2019-01-22] MEDS: lisinopriL 5 MG TAB PO SCH (08:42)
[2019-01-22] MEDS: CLOPIDOGREL BISULFATE 75 MG TAB PO SCH (08:43)
[2019-01-22] MEDS ORDERED: NiCARDipine HCL INJ 2.5 MG/ML 10 ML AMP ONE (10:52)
[2019-01-22] MEDS ORDERED: HEPARIN (PORCINE) 1000 UNIT/ML 10 ML (CATH LAB USE ONLY) ONE (10:52)
[2019-01-22] MEDS ORDERED: MIDAZOLAM HCL 1 MG/ML 2ML VIAL ONE (10:53)
[2019-01-22] MEDS ORDERED: fentaNYL citrate 100 MCG/2 ML VIAL ONE (10:53)
[2019-01-22] MEDS ORDERED: NITROGLYCERIN/D5W 100MCG/ML 20ML SYR ONE (10:53)
--- NOTE | 2019-01-22 11:39 | Cardiac Catheterization ---
Date of Service January 22, 2019 Cardiac Cath Report Cardiac Cath Report Procedure: 1. Coronary angiography History: This is an 83-year-old male patient who has had previous coronary stents placed in the LAD and a first diagonal branch. He has been experiencing jaw discomfort with activity which is his usual angina equivalent. Procedure summary: After informed consent was obtained the patient was brought to the cardiac catheterization lab where access was obtained using a retrograde cylinder technique from the right radial artery. Preformed 5 [place] diagnostic catheters were utilized for the coronary angiograms. Following the procedure the patient was returned to his room in stable condition. ACC data: Start time 11:15 AM End time 11:27 AM Opening aortic pressure 122/64 Closing aortic pressure 117/64 LV pressurevalve not crossed Sedation 1 mg intravenous Versed IV fluid 33 cc normal saline Contrast 90 cc VISI Fluoroscopy time 2.3 minutes Radiation 795 mGy DAP 57.19 mGy/m Right dominant system AUC score 7 Coronary angiography: Selective injections of the right coronary artery reveal minor proximal and mid coronary artery disease with the remainder the artery being widely patent. The right coronary artery is dominant. Selective injections of the left coronary artery revealed a left main trunk to be widely patent. Previous stents in the LAD and diagonal branches are widely patent however the ostium of the diagonal branch is narrowed but unchanged from the previous heart catheterization. The remainder the LAD is widely patent. The left circumflex artery has luminal irregularities with nonobstructive coronary artery disease. Summary: The previous stents in the LAD and diagonal branches are widely patent. There is an ostial stenosis of the diagonal which is unchanged from the previous heart catheterization. The remainder the coronary arteries have minor or nonobstructive coronary artery disease. Recommendations: Recommendations are for continued medical management of the patient's coronary artery disease.
[2019-01-22] MEDS ORDERED: SODIUM CHLORIDE 0.9% 1000ML 1,000 ML IV SCH (11:45)
[2019-01-22 14:02] VITALS: O2SAT 97
[2019-01-22 15:14] VITALS: BP 130/68; TEMP 99.7
--- NOTE | 2019-01-22 15:22 | Discharge Summary ---
Date of Service January 22, 2019 Admission HPI Per Admitting Provider DICTATED BY: Allan Ardon MD DATE OF ADMISSION: 01/20/2019 CHIEF COMPLAINT: Jaw pain. HISTORY OF PRESENT ILLNESS: This is an 83-year-old male with past medical history significant for coronary artery disease, status post stents, angiotensin-converting enzyme inhibitor intolerance, statin intolerance, beta-radha intolerance, history of sleep apnea, does not use continuous positive airway pressure every day, hyperlipidemia, hypertension, status post stricture, gastroesophageal reflux disease and degenerative disc disease of spine who presents with jaw pain. The patient states he has right sided jaw pain for some time, but today it got more severe and it radiated to the left jaw and was subsequently felt somewhat hot. On last , he felt like he was worn out. Because of his ongoing symptoms, he came to the Emergency Room. Initial workup is negative. The patient states he never gets chest pain with his heart disease in the past. He was placed on nitro paste in the Emergency Room. He states while resting, he feels fine, but whenever he gets up and starts moving, it gets severe. Right now, as he is resting, his jaw discomfort is improved, but does not know whether nitro is helping. Denies any shortness of breath. No cough. No fever. No chills. No headache. No dizziness. No earache. No runny nose. No sore throat. No difficulty swallowing. Appetite is okay. No blurred vision. No nausea. No vomiting. No abdominal pain. Normal bowel and bladder movements. No melena, hematochezia or hematuria. No swelling in the legs. No rash. Currently, resting comfortable and hemodynamically stable. Principal Diagnosis JAW Discharge Exam Constitutional WD/WN, vitals as above no acute distress Eyes PERRL, conjunctivae normal, anicteric sclerae ENMT external ear and nose normal, oropharynx normal Neck trachea midline, no thyromegaly Respiratory normal respiratory effort, lungs clear to auscultation Cardiovascular RRR, no murmur, no edema Gastrointestinal (Abdomen) normal bowel sounds, soft, nontender, no hepatosplenomegaly Musculoskeletal no cyanosis or clubbing, extremities motor strength 5/5 Skin no rashes, warm and dry Neurologic patellar DTR's 2+ bilat, sensation intact Psychiatric A+Ox3, euthymic affect Discharge Data Allergies Allergy/AdvReac Type Severity Reaction Status Date / Time atorvastatin Allergy Intermediate RASH Verified 01/20/19 01:32 bacitracin Allergy Intermediate RASH Verified 01/20/19 01:32 rosuvastatin Allergy Unknown Rash. Verified 01/20/19 01:32 metoprolol AdvReac Unknown "DIDNT Verified 01/20/19 01:32 AGREE WITH ME" Consultations 01/20/19 00:17 ED Decision to Admit Stat 01/20/19 01:46 Consult Case Management - Discharge Planning Routine 01/21/19 08:00 Consult Cardiology Routine Procedures Performed Operation Date: 01/22/19 09:30 Actual Procedures p Cath, Coronaries ONLY (no LV) - Jose Harley DO s Cineradiography w/Routine Exam - Jose Harley DO Ordered Studies 01/22/19 06:31 CL Cath Imgs for PACS use only Routine Hospital Course (1) Numbness and tingling of right face: Patient has recurrent history of right jaw pain, suggestive of angina symptoms On admission EKG showed no ischemic change cardiac markers has been negative Patient does report symptoms most of them precipitated by low blood sugar Recently was having recurrent episodes with exertion Significant history of coronary artery disease as well as multiple PTCA, with high risk of worsening of coronary atherosclerotic process Appreciate input from cardiology, Resting echocardiogram shows normal LV function no motion of normal Patient patient had diagnostic cardiac cath today s/p cardiac cath : Summary: The previous stents in the LAD and diagonal branches are widely patent. There is an ostial stenosis of the diagonal which is unchanged from the previous heart catheterization. The remainder the coronary arteries have minor or nonobstructive coronary artery disease. Recommendations: Recommendations are for continued medical management of the patient's coronary artery disease. o assess for arrhythmia (2) CAD (coronary artery disease): History of coronary artery disease: Status post drug-eluting stent to cir cumflex coronary artery on 03/2012, Drug-eluting stent to proximal LAD in 02/2013 Status post drug-eluting stent on mid LAD lesion and first diagonal on 06/13/2017 Post cardiac catheter 12/2017: Patent stents Patient is continue with aspirin and Plavix Intolerant to statin and beta-radha repeat cardiac cath shows patent stent with stable CAD no cardiac intervention was needed pt is continued with previous cardiac meds Hypoglycemia Unexplained hypoglycemic episodes ongoing for months No history of diabetes Not on any antidiabetic meds pt reports of eating at least 3 meals a day, with frequent snacks in between Still gets symptomatic when blood sugar around 80(patient has glucometer which he checks his blood sugar multiple times a day) Was found to be symptomatic (pain and numbness on face, bilateral jaw /dizzy spell lightheadedness )with fasting BSG 89 Given orange juice BSG was 120 with resolution of symptoms hemoglobin A1c 5.8 (nondiabetic) Hypoglycemic work-up: Has been unremarkable so far Fasting insulin -11.1 (BS) Pro insulin: Pending C-peptide: Pending Beta hydroxybutyrate acid:1.23 ( normal ) insulin antibody: Pending TSH within normal limit Protonix discontinued as it is associated with increase insulin level leading to hypoglycemia Started with dextrose with normal saline at 75 mL/h overnight as he will be n.p.o. past midnight for cardiac cath tomorrow CODE STATUS: Full code Disposition: Monitor in telemetry Expected to be discharged home when medically stable Total Time Total Time Spent Total Time Spent (In Minutes): APPROX 45 MINS Discharge Plan Discharge Items Patient Disposition: Home - Self-Care Reason For Visit: JAW PAIN Discharge Diagnosis: CHEST PAIN /JAW PAIN , RECURRENT LOW BLOOD SUGAR /CORONARY ARTERY DISEASE , NO ACUTE CORONARY EVENT Condition on Discharge: Good Activity: Resume your previous activity Non-emergency contact: Primary Care Provider Call non-emergency contact if: you have any medication questions Follow-up/Referrals: Darrius Lehman MD [Primary Care Provider] - 01/24/19 11:00 am (FOLLOW UP WITH DR LYNCH ON 01/24/19 @ 11 AM ) Diet: Regular Addtl Attending Provider Instructions: HOSPITAL FOLLOW UP WITH DR MOREIRA ( DR CATRACHITA IVY IS FULL AT [facility] ON 01/24/2019 @ 11 AM FOLLOW UP WITH CARDIOLOGY AT [place] SCHEDULED Pending Studies at Discharge: No Stand-Alone Forms: My [facility] Medications and DC Order Prescriptions: Continued clopidogrel [Plavix] 75 mg Tablet 75 mg PO DAILY RF: 0 aspirin 81 mg Tablet,Delayed Release (Dr/Ec) 81 mg PO HS RF: 0 acetaminophen [Tylenol Extra Strength] 500 mg Tablet 500 mg PO QAM RF: 0 pantoprazole [Protonix] 40 mg Tablet,Delayed Release (Dr/Ec) 40 mg PO QAM RF: 0 lisinopril 5 mg Tablet 5 mg PO DAILY RF: 0 cholecalciferol (vitamin D3) [Vitamin D3] 1,000 unit Capsule 2,000 unit PO DAILY RF: 0 artificial tear(bkidl-lmn-gyr) 0.1-0.3-0.2 % Drops 1 drp OPHTHALMIC (EYE) QID PRN (Reason: Dry Eye(S)) RF: 0 Centrum Silver 0.4-300-250 mg-mcg-mcg Tablet 1 tab PO QAM RF: 0 Lubricant Eye 56.8-41.5 % Ointment 1 applic OPHTHALMIC (EYE) UD PRN (Reason: Dry Eye(S)) RF: 0 omega 0-txj-pbh-fish oil [Fish Oil] 1,000 mg (120 mg-180 mg) Capsule 1,400 mg PO BID RF: 0 magnesium oxide 400 mg Capsule 400 mg PO QAM RF: 0 fluticasone propionate 50 mcg/actuation [place],Suspension 2 spray INTRANASAL DAILY RF: 0 nitroglycerin [Nitrostat] 0.4 mg Tablet, Sublingual 0.4 mg Sublingual UD PRN (Reason: Chest Pain) Qty: 25 RF: 1 Discharge Orders: Discharge Order (Routine); Ordered 01/22/19 Ordered By: Leta Mcleod/Other Patient Handouts: Catheterization Cardiac Admission Data Admit Date/Time: 01/21/19 15:43 Attending Provider: Leta Menon Admit Provider: Allan Ardon Primary Care Provider: Darrius Lehman Other Providers: Allan Ardon ; Jacek Fraire ; Andrade Coyne ; Aaron Alcantar ; Jus Mcclure ; Jose Harley ; Darrius Short ; Meenakshi Driscoll ; Savannah English Other Interventions: Discharge Summary Assessment (RN) Last Done: 01/22/19 17:09 DC Date/Time DO NOT enter until pt leaves facility: 01/22/19 18:10
[2019-01-22 15:52] VITALS: PULSE 64
--- NOTE | 2019-01-24 13:25 | Coding Query ---
CODING QUERY To promote full compliance with coding requirements relating to patient care, provider participation is requested in all cases of design eng uncertainty. Please assist us with the question(s) below: Coding Question(s): Patient admitted with jaw and facial pain, numbness. Prior history of CAD with coronary artery stents. Coronary Angiography showed some CAD, stents intact. Please document, if known or suspected, the etiology of patients' presenting jaw and facial pain. Thanks for your help! Ashwin Durbin [facility] Physician's Response(s): possible Hypoglycemic episode his cardiac cath showed stable coronary artery disease Jaw pain symptom was resolved after BSG improved thanks Leta Menon Principal Diagnosis: "that condition established after study, to be chiefly responsible for occasioning the admission of the patient to the hospital for care." Co-Existing Principal Diagnosis: "when two or more diagnoses equally meet the criteria for principal diagnosis as determined by the circumstances of admission, diagnostic work up, and/or therapy provided, and the Alphabetic Index, Tabular List, or another coding guideline does not provide sequencing direction, any one of the diagnoses may be sequenced first." "When the physician has documented what appears to be a current diagnosis in the body of the record, but has not included the diagnosis in the final diagnostic statement, the physician should be asked whether the diagnosis should be added." (Source Coding Clinic 2 QTR90. p3-4) JULIANN
[2019-02-02 22:15] LABS: C-Peptide 2.69 NG/ML (0.80-3.85); Proinsulin 8.4 pmol/L (< OR = 18.8)
== END 2019-01-22 18:10 | disposition home or self-care (01) | DRG 641 ==
LOC: 2E 22:21 → ED 22:21 → 2E 01-20 01:33
PROC: CLB.CCO (2019-01-22 09:30)